=== PATIENT | female | born 1965 | race Caucasian/White ===

== ENCOUNTER 2018-12-11 21:42 | Emergency (ER) | payer SELFPAY ==
[2018-12-11 21:42] VITALS: BP 157/89; PULSE 101; RESP 18; TEMP 36.4; O2SAT 99; BMI 23.1
--- NOTE | 2018-12-11 21:50 | ED_ITS ---
HPI - General Adult General Chief complaint: Neuro Symptoms/Deficit Stated complaint: stroke Time Seen by Provider: 12/11/18 21:48 Source: patient, family and EMS Mode of arrival: EMS Limitations: no limitations History of Present Illness HPI narrative: Patient is a 53-year-old female who arrived by EMS for concerns of possible stroke. Approximately 30 min prior to arrival here in the emergency department was reported by EMS that the patient's last saw her normal. They stated that the reported that she was standing in the kitchen and when the walked into the kitchen she started slurring her words and slumped over on the counter. 911 was called by the patient's . There were no signs of trauma. No interventions prior to arrival. Related Data Home Medications Medication Instructions Recorded Confirmed No Known Home Medications 12/11/18 12/11/18 Allergies Allergy/AdvReac Type Severity Reaction Status Date / Time No Known Drug Allergies Allergy Verified 12/11/18 21:58 Review of Systems Review of Systems These review of systems were provided by patient Constitutional Denies fatigue, Denies headache(s) and Denies weakness Eyes Denies blurry vision, Denies change in vision, Denies diplopia and Denies loss of vision ENT Ears, Nose, Mouth, and Throat: Denies dizziness, Denies headache(s) and Denies disequilibrium Cardiovascular Denies chest pain, Denies palpitations and Denies dyspnea Respiratory Denies dyspnea and Denies other Gastrointestinal Gastrointestinal: Denies abdominal pain, Denies nausea and Denies vomiting Genitourinary Denies dysuria Musculoskeletal Denies back pain, Denies myalgias, Denies arthralgias, Denies muscle weakness, Denies numbness, Denies radiating pain into limb and Denies tingling Integumentary/Breasts Denies lesions and Denies rash Neurologic Denies confusion, Denies dizziness, Denies headache(s), Denies focal weakness, Denies loss of vision, Denies memory loss, Denies numbness, Denies seizure-like activity, Denies sensory deficit, Denies tingling, Denies disequilibrium and Denies weakness Psychiatric Denies confusion and Denies memory loss Endocrine Denies fatigue and Denies palpitations Hematologic/Lymphatic Denies easy bleeding and Denies easy bruising Allergic/Immunologic Denies urticaria PFSH Medical History Healthy adult (Acute) Social History Smoking Status: Never smoker Social History Smoking Status: Never smoker Exam Initial Vital Signs Initial Vital Signs: Vital Signs Temperature 97.6 F 12/11/18 21:42 Pulse Rate 101 H 12/11/18 21:42 Respiratory Rate 18 12/11/18 21:42 Blood Pressure 157/89 H 12/11/18 21:42 Pulse Oximetry 99 12/11/18 21:42 Const General: cooperative, well developed, well groomed, No acute distress and other (Angry appearing) Orientation: alert, awake, oriented x3, oriented to person, oriented to place and oriented to time Limitations: mental status not altered HENMT Head: normal to inspection and normocephalic Nose: external nose normal Face and sinus: normal facial exam Mouth: oral mucosae normal Eyes Pupils: PERRL EOM: EOM intact bilaterally Chest Chest: normal inspection of the chest and No tenderness Resp Effort & Inspection: normal respiratory effort Auscultation: clear to auscultation bilaterally Cardio Rate: tachycardic Rhythm: regular rhythm Pulses: radial pulses present GI Inspection: non-distended Palpation: soft and No firm Skin Lesions: no lesions Rashes: no rashes Neuro General: alert, awake and oriented x3 Cranial Nerves: CN's II-XI intact bilaterally Cognition: normal cognition Speech: speech normal Motor: muscle tone normal throughout Sensory Exam: no sensory deficits noted Coordination: [id number] test normal and [id number] test normal Extrem General: normal to inspection and capillary refill normal Psych Appearance: grossly normal and well kempt Scores GCS [place] coma scale eye opening: Spontaneous [place] coma scale verbal response: Orientated [place] coma scale motor response: Obey commands [place] coma scale total score: 15 NIH Stroke Scale Level of Conciousness: Alert, keenly responsive Ask month/age: Answers both questions correctly. Open/close eyes, close hand: Performs both tasks correctly Best gaze horizontal: Normal Visual henson: No visual loss Facial palsy: Normal symetrical movement Left arm drift: No drift for full 10 sec Right arm drift: No drift for full 10 sec Left leg drift: No drift for full 10 sec Right leg drift: No drift for full 10 sec Limb ataxia: Absent Sensory on face/arms/legs: Normal, no sensory loss Best language: No aphasia, normal Dysarthria: Normal Extinction or inattention: No abnormality Total NIH Stroke scale score: 0 Course Orders Ordered: ED Orders 12/11/18 21:40 Complete Blood Count AUTO DIFF Stat Comprehensive Metabolic Panel Stat Ethanol (ETOH) Stat Partial Thromboplastin Time Stat Prothrombin Time INR Stat Thyroid Stimulating Hormone Stat 12/11/18 21:50 CT head/brain wo con Stat EKG-12 Lead Stat Discontinued Medications Aspirin (Aspirin Ec) 325 mg PO NOW ONE Stop: 12/11/18 22:41 Last Admin: 12/11/18 22:51 Dose: 325 mg Sodium Chloride (Normal Saline 0.9%) 1,000 mls @ 125 mls/hr IV CONT ILANA Last Infusion: 12/11/18 23:20 Dose: 125 mls/hr Admin: 12/11/18 22:00 Dose: 125 mls/hr Vital Signs - 8 hr 12/11/18 21:42 12/11/18 22:00 12/11/18 22:30 Temperature 97.6 F Pulse Rate 101 H 65 69 Respiratory Rate 18 14 15 Blood Pressure 157/89 H Blood Pressure [Left Arm] 143/90 H 133/82 Pulse Oximetry 99 98 96 12/11/18 23:02 Temperature Pulse Rate 75 Respiratory Rate 16 Blood Pressure Blood Pressure [Left Arm] 139/78 Pulse Oximetry 100 Medical Decision Making Lab Data Lab results reviewed: Yes I reviewed the patient's lab results. Result diagrams: 12/11/18 21:40 12/11/18 21:40 Lab Results 12/11/18 12/11/18 12/11/18 Range/Units 21:40 21:40 21:40 WBC 5.4 (4.5-11.0) X10^3/uL RBC 4.83 (4.0-5.2) X10^6/uL Hgb 15.6 (12.0-16.0) g/dL Hct 44.9 (36-46) % MCV 93.0 (80-100) fL MCH 32.4 (26-34) PG MCHC 34.8 (30-36) % RDW 13.5 (11.6-14.8) % Plt Count 298 (150-400) X10^3/uL Neut % (Auto) 44.8 L (50-75) % Lymph % (Auto) 40.4 H (25-40) % [place] % (Auto) 5.2 (3-14) % Eos % (Auto) 8.2 H (2-4) % Baso % (Auto) 1.4 (0-2) % Neut # (Auto) 2400 (0273-0013) /uL Lymph # (Auto) 2200 (7917-0231) /uL [place] # (Auto) 300 (0-900) /uL Eos # (Auto) 400 (0-450) /uL Baso # (Auto) 100 (0-100) /uL PT 10.2 (10.1-12.7) SECONDS INR 0.9 (0.9-1.3) APTT 26 L (26.4-36.2) SECONDS Sodium 140 (137-145) mmol/L Potassium 4.1 (3.4-5.1) mmol/L Chloride 104 (98-107) mmol/L Carbon Dioxide 25 (22-32) mmol/L BUN 10 (7-17) mg/dL Creatinine 0.80 (0.52-1.04) mg/dL Estimated GFR > 60.0 (>60) mL/min BUN/Creatinine Ratio 12.5 (6-22) Glucose 80 (70-100) mg/dL Calcium 9.4 (8.4-10.2) mg/dL Total Bilirubin 0.6 (0.2-1.3) mg/dL AST 66 H (14-36) IU/L ALT 65 H (9-52) IU/L Alkaline Phosphatase 77 (38-126) U/L Total Protein 7.7 (6.3-8.2) g/dL Albumin 4.5 (3.5-5.0) g/dL Globulin 3.2 (1.7-4.1) g/dL Albumin/Globulin Ratio 1.4 (1.0-2.8) TSH (0.47-4.68) uIU/mL Ethyl Alcohol 222 mg/dL 12/11/18 Range/Units 21:40 WBC (4.5-11.0) X10^3/uL RBC (4.0-5.2) X10^6/uL Hgb (12.0-16.0) g/dL Hct (36-46) % MCV (80-100) fL MCH (26-34) PG MCHC (30-36) % RDW (11.6-14.8) % Plt Count (150-400) X10^3/uL Neut % (Auto) (50-75) % Lymph % (Auto) (25-40) % Shelby % (Auto) (3-14) % Eos % (Auto) (2-4) % Baso % (Auto) (0-2) % Neut # (Auto) (0065-0555) /uL Lymph # (Auto) (1730-7849) /uL [place] # (Auto) (0-900) /uL Eos # (Auto) (0-450) /uL Baso # (Auto) (0-100) /uL PT (10.1-12.7) SECONDS INR (0.9-1.3) APTT (26.4-36.2) SECONDS Sodium (137-145) mmol/L Potassium (3.4-5.1) mmol/L Chloride (98-107) mmol/L Carbon Dioxide (22-32) mmol/L BUN (7-17) mg/dL Creatinine (0.52-1.04) mg/dL Estimated GFR (>60) mL/min BUN/Creatinine Ratio (6-22) Glucose (70-100) mg/dL Calcium (8.4-10.2) mg/dL Total Bilirubin (0.2-1.3) mg/dL AST (14-36) IU/L ALT (9-52) IU/L Alkaline Phosphatase (38-126) U/L Total Protein (6.3-8.2) g/dL Albumin (3.5-5.0) g/dL Globulin (1.7-4.1) g/dL Albumin/Globulin Ratio (1.0-2.8) TSH 2.14 (0.47-4.68) uIU/mL Ethyl Alcohol mg/dL Imaging Data CT scan - head: Radiologist's impression: Negative for acute intracranial abnormality. Sinusitis ECG Data Attestation: I personally reviewed and interpreted this ECG as follows: Prior ECG tracings: not available for review Interpretation: Sinus rhythm Ventricular rate 82 Normal axis Normal QRS Normal QTC No ST T wave changes MDM Narrative Medical decision making narrative: Upon arrival patient seemed to be somewhat agitated about what was going on. I asked her if she felt agitated and she stated that she was agitated because she was here in the emergency department. She had no slurring of her words. Shortly after she arrived here while I was doing my neurologic evaluation the patient's arrived. He stated that he felt like she was back to normal again. Was not slurring any of her words. Her head CT was unremarkable. Her labs did come back showing a elevated alcohol level. I have a strong suspicion that the patient's symptoms were alcohol related and not stroke related however there is a small concerned about a TIA. She was given an aspirin here in the emergency department. The patient did not want to be admitted to the hospital. She did not have insurance. I discussed the case with Dr. Machado who is her primary doctor who stated that he could follow up with her on Friday. I did discuss all this with the patient and her family who are at bedside. We discussed return precautions. She is going to take an aspirin on a daily basis until follow-up with her primary doctor. Patient expressed understanding and agreement with this plan. Discharge Plan Departure Patient Disposition: Home Clinical Impression: TIA (transient ischemic attack) Alcohol intoxication Qualifiers: Complication of substance-induced condition: with unspecified complication Qualified Code(s): F10.929 - Alcohol use, unspecified with intoxication, unspecified Discharge Date/Time: 12/11/18 23:10 Interventions: ED Discharge Assessment Last Done: 12/11/18 23:10 Instructions: DI for Transient Ischemic Attack Activity Restrictions/Additional Instructions: I recommend you start taking a full 325 mg strength aspirin. On Friday morning give your primary care doctor's office a call. No driving for the next 24 hr or in the future you partake in intoxicating substances. Return to the emergency department for any new or worsening symptoms Prescriptions: No Action No Known Home Medications RF: 0
--- NOTE | 2018-12-11 21:50 | DI.CT.S_ITS ---
PROCEDURE: CT HEAD/BRAIN WO CON INDICATIONS: Possible stroke TECHNIQUE: Noncontrast 4.5 mm thick angled axial sections acquired from the foramen magnum to the vertex, with coronal and sagittal reformats. For radiation dose reduction, the following was used: automated exposure control, adjustment of mA and/or kV according to patient size. COMPARISON: None. FINDINGS: Image quality: Excellent. CSF spaces: Basal cisterns are patent. No extra-axial fluid collections. Ventricles are normal in size and shape. Brain: No midline shift. No intracranial masses or hemorrhage. Negron-white matter interface is normal. Skull and face: Calvarium and visualized facial bones are intact, without suspicious lesions. Sinuses: Marked mucosal thickening and gas is present within the bilateral ethmoid air cells. Visualized sinuses and mastoids are otherwise clear. IMPRESSION: 1. No acute intracranial findings. 2. Ethmoid sinusitis. These findings are concordant with the overnight interpretation. Dictated by: Juani Dick M.D. on 12/12/2018 at 8:10 Approved by: Juani Dick M.D. on 12/12/2018 at 8:11
[2018-12-11 21:55] LABS: Add Manual Diff / Slide Review NO; Basophils Absolute Auto 100 /uL (0-100); Basophils Percent Auto 1.4 % (0-2); Eosinophils Absolute Auto 400 /uL (0-450); Eosinophils Percent Auto 8.2 % (2-4); Hematocrit 44.9 % (36-46); Hemoglobin 15.6 g/dL (12.0-16.0); Lymphocytes Absolute Auto 2200 /uL (1100-4500); Lymphocytes Percent Auto 40.4 % (25-40); Mean Corpuscular HGB Conc 34.8 % (30-36); Mean Corpuscular Hemoglobin 32.4 PG (26-34); Monocytes Absolute Auto 300 /uL (0-900); Monocytes Percent Auto 5.2 % (3-14); Neutrophils Absolute Auto 2400 /uL (1500-7000); Neutrophils Percent Auto 44.8 % (50-75); Platelet Count 298 X10^3/uL (150-400); Red Blood Cell Count 4.83 X10^6/uL (4.0-5.2); Red Cell Distribution Width 13.5 % (11.6-14.8); White Blood Cell Count 5.4 X10^3/uL (4.5-11.0)
[2018-12-11 21:59] LABS: INR 0.9 (0.9-1.3); Prothrombin Time 10.2 SECONDS (10.1-12.7)
[2018-12-11 22:00] VITALS: BP 143/90; PULSE 65; RESP 14; O2SAT 98
[2018-12-11] MEDS: SODIUM CHLORIDE 0.9% 1,000 ML 125 ML IV (22:00)
[2018-12-11 22:01] LABS: PTT Partial Thromboplastin Tim 26 SECONDS (26.4-36.2)
[2018-12-11 22:07] LABS: Alanine Aminotransferase 65 IU/L (9-52); Albumin 4.5 g/dL (3.5-5.0); Albumin Globulin Ratio 1.4 (1.0-2.8); Alkaline Phosphatase 77 U/L (38-126); Aspartate Aminotransferase 66 IU/L (14-36); BUN Creatinine Ratio 12.5 (6-22); Bilirubin Total 0.6 mg/dL (0.2-1.3); Blood Urea Nitrogen 10 mg/dL (7-17); Calcium 9.4 mg/dL (8.4-10.2); Carbon Dioxide 25 mmol/L (22-32); Chloride 104 mmol/L (98-107); Estimated Glomerular Filt Rate > 60.0 mL/min (>60); Globulin 3.2 g/dL (1.7-4.1); Glucose 80 mg/dL (70-100); HEMOLYSIS < 15 (0-50); Potassium 4.1 mmol/L (3.4-5.1); Sodium 140 mmol/L (137-145); Total Protein 7.7 g/dL (6.3-8.2)
--- NOTE | 2018-12-11 22:20 | PC.NURSE ---
provided O2 by NC on 2L due to o2 sat to 89-90% in RA while in supine position. O2 sat upto 98% in RA
[2018-12-11 22:30] VITALS: BP 133/82; PULSE 69; RESP 15; O2SAT 96
[2018-12-11 22:32] LABS: Ethanol (ETOH) 222 mg/dL
[2018-12-11 22:46] LABS: Thyroid Stimulating Hormone 2.14 uIU/mL (0.47-4.68)
[2018-12-11] MEDS: ASPIRIN EC 325 MG TABLET PO (22:51)
[2018-12-11 23:02] VITALS: BP 139/78; PULSE 75; RESP 16; O2SAT 100
== END 2018-12-11 23:10 | disposition home or self-care (01) ==
PROVIDERS: Emergency Provider Emergency Medicine
DX: G45.9 Transient cerebral ischemic attack, unspecified (principal); F10.929 Alcohol use, unspecified with intoxication, unspecified
CPT/HCPCS: 36415; 70450; 80053; 80320; 84443; 85025; 85610; 85730; 93005; 93010; 96360; 99283; 99285; 99291

== ENCOUNTER → 2020-06-16 11:02 | Outpatient (CLI) | payer SELFPAY ==
--- NOTE | 2020-06-16 | DI.CT.S_ITS ---
PROCEDURE: CT ABDOMEN PELVIS W CON INDICATIONS: Unspecified abdominal pain TECHNIQUE: After the administration of oral and intravenous contrast, 5 mm thick sections acquired from the diaphragms to the symphysis. 5 mm thick coronal and sagittal reformats were performed. For radiation dose reduction, the following was used: automated exposure control, adjustment of mA and/or kV according to patient size. COMPARISON: None. FINDINGS: Image quality: Excellent. ABDOMEN: Lung bases: Lung bases are clear. Heart size is normal. Nonenlarged pericardiac lymph nodes. Solid organs: Liver is normal in size. Multiple hypodense hepatic foci. Gallbladder is unremarkabl. Biliary system is non-dilated. Pancreas enhances normally. Spleen is normal in size and enhancement. No adrenal nodules. Kidneys are normal in size and enhancement, without significant hydronephrosis. Peritoneum and bowel: No bowel obstruction. Loops of small bowel in the left upper abdomen are questionably thickened. Appendix is within normal limits with gas in the lumen. No pneumoperitoneum. Nodes and vessels: No retroperitoneal or mesenteric adenopathy. Subtle stranding in the peritoneum in the left upper quadrant, (3/16). No peritoneal nodularity identified. Aorta and inferior vena cava are normal in caliber. Miscellaneous: Tiny periumbilical fat containing hernia. PELVIS: Genitourinary: Bladder is mostly decompressed. Uterus has in the lung gated appearance extending to the anterior abdominal wall. Suspect multiple uterine fibroids. Uterus is deviated to the left. Trace presacral fluid. -Massive right ovarian cyst measuring 21.2 x 14.5 x 10.3 cm, (02/03 and ), estimated volume of 1646 cc. Solid component at the inferior portion. -complex left ovarian cyst measuring approximately 10 x 7.2 x 6.6 cm, ( and ). Multiple septations with nodular thickening and calcifications. Miscellaneous: No inguinal hernias. No enlarged adenopathy. Bones: No suspicious bony lesions. No vertebral body compression fractures. IMPRESSION: 1. Massive solid and cystic right ovarian cyst measuring 21.2 cm. Suspicious for ovarian malignancy. 2. Large left ovarian complex cyst measuring 10 cm. Suspicious for ovarian malignancy. 3. Trace presacral fluid. Subtle stranding in the peritoneum in the left upper quadrant. No ascites. 4. Question of mild thickening of the jejunal wall in the left upper quadrant. 5. Elongated appearance of the uterus with multiple fibroids. Gynecological/surgical consultation is recommended. Dictated by: López Mckenzie M.D. on 06/16/2020 at 12:29 Approved by: López Mckenzie M.D. on 06/16/2020 at 12:56
--- NOTE | 2020-10-23 09:35 | ONC.SCHED ---
Patient being referred to Oncology; left voicemail for patient to provide insurance information.
--- NOTE | 2020-10-23 09:40 | ONC.SCHED ---
Left message at referring provider's office (Dr. Deepak Luevano, [facility] [phone]) advising patient has new insurance and will need an authorization to be seen at [facility]
== END ==
PROVIDERS: PCP Family Medicine; Referring Provider Family Medicine; Visit Provider Family Medicine
DX: R10.9 Unspecified abdominal pain (principal); N83.292 Other ovarian cyst, left side; N83.291 Other ovarian cyst, right side; D25.9 Leiomyoma of uterus, unspecified
CPT/HCPCS: 74177; Q9967

== ENCOUNTER → 2020-11-10 10:35 | Outpatient (CLI) | payer OTHER, SELFPAY ==
--- NOTE | 2020-11-10 10:39 | DI.CT.S_ITS ---
PROCEDURE: CT CHEST ABD PEL W CON INDICATIONS: Follow-up ovarian cancer postop TECHNIQUE: After the administration of oral and intravenous contrast, 5 mm thick sections acquired from the lung apices to the symphysis. 5 mm coronal and sagittal reformats were performed, with additional 7 mm coronal MIP reformats through the lungs. For radiation dose reduction, the following was used: automated exposure control, adjustment of mA and/or kV according to patient size. COMPARISON: [facility], CT, CT ABDOMEN PELVIS W CON, 06/16/2020, 12:07. FINDINGS: Image quality: Excellent. CHEST: Lungs and pleura: No acute airspace opacities. Scattered dependent atelectasis in periphery of bilateral lower lung henson are seen. No pleural effusions or pneumothorax. Central and peripheral airways appear patent and normal in caliber. Mediastinum: Heart size is normal. No pericardial effusion. No mediastinal or hilar adenopathy by size criteria. Thoracic aorta and central pulmonary arteries are normal in size. Esophagus is normal in caliber. No hiatal hernia. Chest wall: No axillary or supraclavicular adenopathy by size criteria. Thyroid gland is within normal limits. ABDOMEN: Solid organs: Liver is normal in size . Numerous small hypodense foci are again seen scattered in liver parenchyma and measures up to 1.5 cm in size in right hepatic dome, not significantly changed in size and numbers from previous study. There is and ill-defined hypodense area involving posterior segment of right hepatic lobe measures up to 1.4 x 1.2 cm in size series 2, image 55 . This was not definitively seen on previous study Tiny hypodense area involving lateral segment of left hepatic lobe measures 4 millimeter in size is unchanged. Gallbladder is within normal limits. Biliary system is non dilated. Pancreas enhances normally. Spleen is normal in size and enhancement. No adrenal nodules. Kidneys demonstrate normal size and enhancement, without hydronephrosis. Peritoneum and bowel: Bowel loops demonstrate normal wall thickness and caliber. No free fluid or air. Appendix is visualized and is within normal limits. Nodes and vessels: Enlarged retroperitoneal lymph node anterior to the IVC is seen measures 1.2 cm in short axis diameter series 2, image 83. Enlarged lymph nodes are also noted along left iliac vessels measures up to 1.4 x 2.8 cm in size series 2 image 101. No other retroperitoneal lymphadenopathy is noted by size criteria. No mesenteric lymphadenopathy is seen by size criteria. Aorta and inferior vena cava are normal in size. Miscellaneous: No ventral hernias. Postsurgical changes are noted in anterior lower abdominal wall/pelvic wall. PELVIS: Genitourinary: There is interval total hysterectomy and resection of previously noted bilateral adnexal cystic masses. Vaginal cuff region show no gross abnormality. Bladder wall thickness is mildly thickened without discrete bladder wall mass Miscellaneous: No inguinal hernias or adenopathy. Bones: No suspicious bony lesions. No vertebral body compression fractures. IMPRESSION: 1. Interval total hysterectomy and resection of previously noted large cystic mass in bilateral adnexa. No gross abnormality is seen in vaginal cuff region. 2. Prominent retroperitoneal lymph node anterior to IVC. Additional enlarged left iliac nodes as above concerning for metastatic lymphadenopathy. No mediastinal or hilar lymphadenopathy. 3. Stable appearing fairly well-defined small hypodense lesions seen in liver parenchyma predominantly involving the right hepatic lobe and likely represent benign process. Questionable ill-defined 1.4 x 1.2 cm hypodensity involving posterior segment of right hepatic lobe not definitely seen on previous study, liver metastatic disease cannot be excluded. Short-term [address] follow-up is recommended. 4. No evidence of metastatic disease to lungs. Dictated by: Agustín Kolb M.D. on 11/10/2020 at 13:16 Approved by: Agustín Klob M.D. on 11/10/2020 at 13:49
== END ==
PROVIDERS: PCP Family Medicine; Referring Provider Internal Medicine; Visit Provider Internal Medicine
DX: C56.1 Malignant neoplasm of right ovary (principal); R59.0 Localized enlarged lymph nodes; K76.9 Liver disease, unspecified; Z90.710 Acquired absence of both cervix and uterus
CPT/HCPCS: 71260; 74177

== ENCOUNTER → 2020-11-28 11:58 | Outpatient (ROUT) | payer OTHER, SELFPAY ==
[2020-11-28 12:09] LABS: Hematocrit 38.6 % (36-46); Hemoglobin 13.2 g/dL (12.0-16.0); Mean Corpuscular HGB Conc 34.2 % (30-36); Mean Corpuscular Hemoglobin 30.6 PG (26-34); Mean Corpuscular Volume 89.4 fL (80-100); Platelet Count 195 X10^3/uL (150-400); Red Blood Cell Count 4.32 X10^6/uL (4.0-5.2); Red Cell Distribution Width 12.4 % (11.6-14.8)
[2020-11-28 12:11] LABS: Add Manual Diff / Slide Review YES; White Blood Cell Count 1.8 X10^3/uL (4.5-11.0)
[2020-11-28 12:39] LABS: Neutrophils Absolute Manual 468 /uL (3000-5900); Total Cells Counted 50
[2020-11-28 12:41] LABS: RBC Morphology Normal Morphology
== END ==
PROVIDERS: PCP Family Medicine; Visit Provider Internal Medicine
DX: C56.1 Malignant neoplasm of right ovary (principal)
CPT/HCPCS: 85007; 85025

== ENCOUNTER → 2020-12-20 12:25 | Outpatient (ROUT) | payer OTHER, SELFPAY ==
[2020-12-20 12:32] LABS: Add Manual Diff / Slide Review NO; Basophils Absolute Auto 0 /uL (0-100); Basophils Percent Auto 0.2 % (0-2); Eosinophils Absolute Auto 0 /uL (0-450); Eosinophils Percent Auto 0.7 % (2-4); Hematocrit 32.8 % (36-46); Hemoglobin 11.4 g/dL (12.0-16.0); Lymphocytes Absolute Auto 1100 /uL (1100-4500); Lymphocytes Percent Auto 18.4 % (25-40); Mean Corpuscular HGB Conc 34.7 % (30-36); Mean Corpuscular Hemoglobin 31.2 PG (26-34); Mean Corpuscular Volume 89.9 fL (80-100); Monocytes Absolute Auto 400 /uL (0-900); Monocytes Percent Auto 7.4 % (3-14); Neutrophils Absolute Auto 4400 /uL (1500-7000); Neutrophils Percent Auto 73.3 % (50-75); Platelet Count 205 X10^3/uL (150-400); Red Blood Cell Count 3.64 X10^6/uL (4.0-5.2); Red Cell Distribution Width 13.2 % (11.6-14.8)
== END ==
PROVIDERS: PCP Family Medicine; Visit Provider Internal Medicine
DX: C56.1 Malignant neoplasm of right ovary (principal)
CPT/HCPCS: 85025

== ENCOUNTER → 2021-01-02 12:29 | Outpatient (ROUT) | payer OTHER, SELFPAY ==
[2021-01-02 12:37] LABS: Add Manual Diff / Slide Review NO; Basophils Absolute Auto 0 /uL (0-100); Basophils Percent Auto 0.4 % (0-2); Eosinophils Absolute Auto 0 /uL (0-450); Eosinophils Percent Auto 0.6 % (2-4); Hematocrit 34.5 % (36-46); Hemoglobin 12.2 g/dL (12.0-16.0); Lymphocytes Absolute Auto 1100 /uL (1100-4500); Lymphocytes Percent Auto 12.9 % (25-40); Mean Corpuscular HGB Conc 35.2 % (30-36); Mean Corpuscular Hemoglobin 32.2 PG (26-34); Mean Corpuscular Volume 91.4 fL (80-100); Monocytes Absolute Auto 800 /uL (0-900); Monocytes Percent Auto 8.9 % (3-14); Neutrophils Absolute Auto 6700 /uL (1500-7000); Neutrophils Percent Auto 77.2 % (50-75); Platelet Count 227 X10^3/uL (150-400); Red Blood Cell Count 3.78 X10^6/uL (4.0-5.2); Red Cell Distribution Width 16.1 % (11.6-14.8); White Blood Cell Count 8.7 X10^3/uL (4.5-11.0)
[2021-01-02 12:44] LABS: Alanine Aminotransferase 98 IU/L (<35); Albumin 4.3 g/dL (3.5-5.0); Albumin Globulin Ratio 1.8 (1.0-2.8); Alkaline Phosphatase 126 U/L (38-126); Aspartate Aminotransferase 59 IU/L (14-36); BUN Creatinine Ratio 26.1 (6-22); Bilirubin Total 0.6 mg/dL (0.2-1.3); Blood Urea Nitrogen 12 mg/dL (7-17); Carbon Dioxide 29 mmol/L (22-32); Chloride 98 mmol/L (98-107); Estimated Glomerular Filt Rate > 60.0 mL/min (>60); Globulin 2.4 g/dL (1.7-4.1); Glucose 92 mg/dL (70-100); HEMOLYSIS < 15 (0-50); Potassium 3.6 mmol/L (3.4-5.1); Sodium 135 mmol/L (137-145); Total Protein 6.7 g/dL (6.3-8.2)
== END ==
PROVIDERS: PCP Family Medicine; Visit Provider Internal Medicine
DX: C56.1 Malignant neoplasm of right ovary (principal)
CPT/HCPCS: 80053; 85025

== ENCOUNTER → 2021-01-09 11:35 | Outpatient (ROUT) | payer OTHER, SELFPAY ==
[2021-01-09 11:50] LABS: Add Manual Diff / Slide Review NO; Basophils Absolute Auto 0 /uL (0-100); Basophils Percent Auto 0.2 % (0-2); Eosinophils Absolute Auto 100 /uL (0-450); Eosinophils Percent Auto 1.1 % (2-4); Hematocrit 34.5 % (36-46); Hemoglobin 11.8 g/dL (12.0-16.0); Lymphocytes Absolute Auto 1200 /uL (1100-4500); Lymphocytes Percent Auto 14.2 % (25-40); Mean Corpuscular HGB Conc 34.3 % (30-36); Mean Corpuscular Hemoglobin 31.9 PG (26-34); Mean Corpuscular Volume 92.9 fL (80-100); Monocytes Absolute Auto 400 /uL (0-900); Neutrophils Absolute Auto 6500 /uL (1500-7000); Neutrophils Percent Auto 79.5 % (50-75); Platelet Count 171 X10^3/uL (150-400); Red Blood Cell Count 3.71 X10^6/uL (4.0-5.2); Red Cell Distribution Width 17.2 % (11.6-14.8); White Blood Cell Count 8.1 X10^3/uL (4.5-11.0)
== END ==
PROVIDERS: PCP Family Medicine; Visit Provider Internal Medicine
DX: C56.1 Malignant neoplasm of right ovary (principal)
CPT/HCPCS: 85025

== ENCOUNTER → 2021-01-23 13:27 | Outpatient (ROUT) | payer OTHER, SELFPAY ==
[2021-01-23 13:41] LABS: Add Manual Diff / Slide Review NO; Basophils Absolute Auto 0 /uL (0-100); Basophils Percent Auto 0.1 % (0-2); Eosinophils Absolute Auto 100 /uL (0-450); Eosinophils Percent Auto 1.2 % (2-4); Hematocrit 30.1 % (36-46); Hemoglobin 10.8 g/dL (12.0-16.0); Lymphocytes Absolute Auto 800 /uL (1100-4500); Lymphocytes Percent Auto 10.2 % (25-40); Mean Corpuscular HGB Conc 35.7 % (30-36); Mean Corpuscular Hemoglobin 34.8 PG (26-34); Mean Corpuscular Volume 97.5 fL (80-100); Monocytes Absolute Auto 500 /uL (0-900); Monocytes Percent Auto 5.7 % (3-14); Neutrophils Absolute Auto 6600 /uL (1500-7000); Neutrophils Percent Auto 82.8 % (50-75); Platelet Count 58 X10^3/uL (150-400); Red Blood Cell Count 3.09 X10^6/uL (4.0-5.2); Red Cell Distribution Width 19.1 % (11.6-14.8); White Blood Cell Count 7.9 X10^3/uL (4.5-11.0)
[2021-01-23 13:44] LABS: Alanine Aminotransferase 81 IU/L (<35); Albumin Globulin Ratio 1.7 (1.0-2.8); Alkaline Phosphatase 120 U/L (38-126); Aspartate Aminotransferase 61 IU/L (14-36); BUN Creatinine Ratio 31.3 (6-22); Bilirubin Total 0.8 mg/dL (0.2-1.3); Blood Urea Nitrogen 15 mg/dL (7-17); Calcium 9.5 mg/dL (8.4-10.2); Carbon Dioxide 27 mmol/L (22-32); Chloride 102 mmol/L (98-107); Estimated Glomerular Filt Rate > 60.0 mL/min (>60); Globulin 2.4 g/dL (1.7-4.1); Glucose 96 mg/dL (70-100); HEMOLYSIS < 15 (0-50); Potassium 3.8 mmol/L (3.4-5.1); Sodium 137 mmol/L (137-145); Total Protein 6.4 g/dL (6.3-8.2)
== END ==
PROVIDERS: PCP Family Medicine; Visit Provider Internal Medicine
DX: C56.1 Malignant neoplasm of right ovary (principal)
CPT/HCPCS: 80053; 85025

== ENCOUNTER → 2021-01-30 14:32 | Outpatient (ROUT) | payer OTHER, SELFPAY ==
[2021-01-30 14:42] LABS: Add Manual Diff / Slide Review NO; Basophils Absolute Auto 0 /uL (0-100); Basophils Percent Auto 0.2 % (0-2); Eosinophils Absolute Auto 100 /uL (0-450); Eosinophils Percent Auto 1.8 % (2-4); Hemoglobin 9.8 g/dL (12.0-16.0); Lymphocytes Absolute Auto 700 /uL (1100-4500); Lymphocytes Percent Auto 18.7 % (25-40); Mean Corpuscular HGB Conc 34.9 % (30-36); Mean Corpuscular Hemoglobin 34.9 PG (26-34); Monocytes Absolute Auto 200 /uL (0-900); Monocytes Percent Auto 4.7 % (3-14); Neutrophils Absolute Auto 2600 /uL (1500-7000); Neutrophils Percent Auto 74.6 % (50-75); Platelet Count 68 X10^3/uL (150-400); Red Cell Distribution Width 19.2 % (11.6-14.8); White Blood Cell Count 3.5 X10^3/uL (4.5-11.0)
== END ==
PROVIDERS: PCP Family Medicine; Visit Provider Internal Medicine
DX: C56.1 Malignant neoplasm of right ovary (principal)
CPT/HCPCS: 85025

== ENCOUNTER → 2021-02-13 12:27 | Outpatient (ROUT) | payer OTHER, SELFPAY ==
[2021-02-13 12:38] LABS: Add Manual Diff / Slide Review NO; Basophils Absolute Auto 0 /uL (0-100); Basophils Percent Auto 0.3 % (0-2); Eosinophils Absolute Auto 100 /uL (0-450); Eosinophils Percent Auto 1.2 % (2-4); Hematocrit 25.9 % (36-46); Hemoglobin 9.3 g/dL (12.0-16.0); Lymphocytes Absolute Auto 700 /uL (1100-4500); Lymphocytes Percent Auto 15.2 % (25-40); Mean Corpuscular Hemoglobin 37.3 PG (26-34); Mean Corpuscular Volume 103.4 fL (80-100); Monocytes Absolute Auto 400 /uL (0-900); Monocytes Percent Auto 9.2 % (3-14); Neutrophils Absolute Auto 3300 /uL (1500-7000); Neutrophils Percent Auto 74.1 % (50-75); Platelet Count 106 X10^3/uL (150-400); Red Cell Distribution Width 18.5 % (11.6-14.8); White Blood Cell Count 4.4 X10^3/uL (4.5-11.0)
[2021-02-13 13:25] LABS: Alanine Aminotransferase 65 IU/L (<35); Albumin 3.9 g/dL (3.5-5.0); Albumin Globulin Ratio 1.6 (1.0-2.8); Alkaline Phosphatase 90 U/L (38-126); Aspartate Aminotransferase 42 IU/L (14-36); BUN Creatinine Ratio 26.1 (6-22); Bilirubin Total 0.5 mg/dL (0.2-1.3); Blood Urea Nitrogen 12 mg/dL (7-17); Calcium 9.5 mg/dL (8.4-10.2); Carbon Dioxide 28 mmol/L (22-32); Chloride 99 mmol/L (98-107); Estimated Glomerular Filt Rate > 60.0 mL/min (>60); Globulin 2.5 g/dL (1.7-4.1); Glucose 112 mg/dL (70-100); HEMOLYSIS < 15 (0-50); Potassium 3.6 mmol/L (3.4-5.1); Sodium 134 mmol/L (137-145); Total Protein 6.4 g/dL (6.3-8.2)
== END ==
PROVIDERS: PCP Family Medicine; Visit Provider Internal Medicine
DX: C56.1 Malignant neoplasm of right ovary (principal)
CPT/HCPCS: 80053; 85025

== ENCOUNTER → 2021-02-20 12:17 | Outpatient (ROUT) | payer OTHER, SELFPAY ==
[2021-02-20 12:27] LABS: Add Manual Diff / Slide Review NO; Basophils Absolute Auto 0 /uL (0-100); Basophils Percent Auto 0.3 % (0-2); Eosinophils Absolute Auto 100 /uL (0-450); Eosinophils Percent Auto 0.9 % (2-4); Hemoglobin 9.3 g/dL (12.0-16.0); Lymphocytes Absolute Auto 1000 /uL (1100-4500); Lymphocytes Percent Auto 17.5 % (25-40); Mean Corpuscular HGB Conc 35.8 % (30-36); Mean Corpuscular Hemoglobin 37.4 PG (26-34); Mean Corpuscular Volume 104.6 fL (80-100); Monocytes Absolute Auto 500 /uL (0-900); Monocytes Percent Auto 8.3 % (3-14); Neutrophils Absolute Auto 4100 /uL (1500-7000); Platelet Count 156 X10^3/uL (150-400); Red Blood Cell Count 2.49 X10^6/uL (4.0-5.2); Red Cell Distribution Width 19.1 % (11.6-14.8); White Blood Cell Count 5.6 X10^3/uL (4.5-11.0)
== END ==
PROVIDERS: PCP Family Medicine; Visit Provider Internal Medicine
DX: C56.1 Malignant neoplasm of right ovary (principal)
CPT/HCPCS: 85025

== ENCOUNTER → 2021-03-06 12:40 | Outpatient (ROUT) | payer OTHER, SELFPAY ==
[2021-03-06 12:50] LABS: Add Manual Diff / Slide Review YES; Hematocrit 26.7 % (36-46); Hemoglobin 9.4 g/dL (12.0-16.0); Mean Corpuscular HGB Conc 35.2 % (30-36); Mean Corpuscular Hemoglobin 37.5 PG (26-34); Mean Corpuscular Volume 106.5 fL (80-100); Platelet Count 63 X10^3/uL (150-400); White Blood Cell Count 7.1 X10^3/uL (4.5-11.0)
[2021-03-06 13:01] LABS: Alanine Aminotransferase 62 IU/L (<35); Albumin 3.8 g/dL (3.5-5.0); Albumin Globulin Ratio 1.6 (1.0-2.8); Alkaline Phosphatase 137 U/L (38-126); Aspartate Aminotransferase 56 IU/L (14-36); Bilirubin Total 0.5 mg/dL (0.2-1.3); Blood Urea Nitrogen 14 mg/dL (7-17); Calcium 9.3 mg/dL (8.4-10.2); Carbon Dioxide 31 mmol/L (22-32); Chloride 101 mmol/L (98-107); Estimated Glomerular Filt Rate > 60.0 mL/min (>60); Globulin 2.4 g/dL (1.7-4.1); Glucose 88 mg/dL (70-100); HEMOLYSIS 16 (0-50); Sodium 137 mmol/L (137-145); Total Protein 6.2 g/dL (6.3-8.2)
[2021-03-06 13:05] LABS: Macrocytosis 1+; Neutrophils Absolute Manual 5751 /uL (3000-5900); Total Cells Counted 100
== END ==
PROVIDERS: PCP Family Medicine; Visit Provider Internal Medicine
DX: C56.1 Malignant neoplasm of right ovary (principal)
CPT/HCPCS: 80053; 85007; 85025

== ENCOUNTER → 2021-03-13 11:48 | Outpatient (ROUT) | payer OTHER, SELFPAY ==
[2021-03-13 11:53] LABS: Add Manual Diff / Slide Review NO; Basophils Absolute Auto 0 /uL (0-100); Basophils Percent Auto 0.4 % (0-2); Eosinophils Absolute Auto 100 /uL (0-450); Eosinophils Percent Auto 1.9 % (2-4); Hematocrit 27.9 % (36-46); Hemoglobin 9.8 g/dL (12.0-16.0); Lymphocytes Absolute Auto 800 /uL (1100-4500); Lymphocytes Percent Auto 21.5 % (25-40); Mean Corpuscular Hemoglobin 37.2 PG (26-34); Mean Corpuscular Volume 106.5 fL (80-100); Monocytes Absolute Auto 200 /uL (0-900); Monocytes Percent Auto 6.5 % (3-14); Neutrophils Absolute Auto 2500 /uL (1500-7000); Neutrophils Percent Auto 69.7 % (50-75); Platelet Count 74 X10^3/uL (150-400); Red Blood Cell Count 2.62 X10^6/uL (4.0-5.2); Red Cell Distribution Width 15.1 % (11.6-14.8); White Blood Cell Count 3.6 X10^3/uL (4.5-11.0)
== END ==
PROVIDERS: PCP Family Medicine; Visit Provider Internal Medicine
DX: C56.1 Malignant neoplasm of right ovary (principal)
CPT/HCPCS: 85025

== ENCOUNTER → 2021-03-22 11:02 | Outpatient (CLI) | payer OTHER, SELFPAY ==
--- NOTE | 2021-03-22 11:36 | DI.CT.S_ITS ---
PROCEDURE: CT CHEST ABD PEL W CON INDICATIONS: Follow-up ovarian cancer after chemotherapy TECHNIQUE: After the administration of oral and intravenous contrast, axial sections acquired from the supraclavicular neck to the pubic symphysis. Coronal and sagittal reformats were performed. For radiation dose reduction, the following was used: automated exposure control, adjustment of mA and/or kV according to patient size. COMPARISON:[facility], CT, CT ABDOMEN PELVIS W CON, 06/16/2020, 12:07. [facility], CT, CT CHEST ABD PEL W CON, 11/10/2020, 11:55. FINDINGS: Image quality: Excellent. CHEST: Lower Neck: No enlarged lymph nodes. Thyroid: Within normal limits. Axillae: No enlarged lymph nodes. Chest Wall: Unremarkable. Lungs and Airways: No consolidation or suspicious nodules. Pleura: No pneumothorax or pleural effusions. Heart: Heart size is normal. No pericardial effusion. Thoracic Vessels: The aorta and pulmonary arteries demonstrate normal size. Mediastinum and [place]: No enlarged lymph nodes. Esophagus: No wall thickening. No hiatal hernia. ABDOMEN: Liver: Numerous small hypodense foci scattered throughout the liver. The hypodense focus in the posterior right lobe of the liver is unchanged in size compared to CT 11/10/2020 and appears more hypodense similar to the other suspected benign cyst. This measures 1.3 cm, (2/54). Gallbladder: Unremarkable. Biliary ducts: Unremarkable. Pancreas: Unremarkable. Spleen: Unremarkable. Adrenal Glands: Unremarkable. Kidneys and Ureters: Unremarkable. Stomach and Bowel: Stomach, small bowel loops, and colon are unremarkable. Normal appendix. Peritoneum: No abnormal intraperitoneal fluid. No free air. Ventral Wall: No hernia. Ventral abdominal wall scar. Abdominal Nodes: -Precaval node measuring 1.6 x 0.9 cm, (2/83), previously 2 x 1.4 cm. -Left iliac node measuring 1.8 x 1.2 cm, (2/101), previously 2.8 x 1.6 cm. -Left iliac node measuring 1.5 cm, (2/99), previously 1.2 cm. Small right iliac nodes. Vessels: Aorta and inferior vena cava are normal in size. PELVIS: Pelvic Organs: Uterus is absent. Bladder: Unremarkable. Pelvic Nodes: Right pelvic nodule measuring 2.5 x 1.6 cm, (2/106), previously 2.3 x 1.5 cm. Miscellaneous: No inguinal hernias are seen. Bones: Unremarkable. IMPRESSION: 1. Bilateral iliac and right pelvic nodes are stable to slightly decreased in size. No new nodes seen. 2. Hypodense foci in the liver are unchanged in size. Favor benign cysts rather than metastatic disease. -consider liver MRI with IV contrast for further characterization to exclude metastatic liver disease. 3. Post hysterectomy and ovarian mass resection. Dictated by: López Mckenzie M.D. on 03/22/2021 at 13:04 Approved by: López Mckenzie M.D. on 03/22/2021 at 13:22
== END ==
PROVIDERS: PCP Family Medicine; Referring Provider Internal Medicine; Visit Provider Internal Medicine
DX: C56.1 Malignant neoplasm of right ovary (principal); R59.0 Localized enlarged lymph nodes; Z90.710 Acquired absence of both cervix and uterus
CPT/HCPCS: 71260; 74177

== ENCOUNTER → 2021-06-28 15:48 | Outpatient (ROUT) | payer OTHER, SELFPAY ==
[2021-06-28 16:29] LABS: Cancer Antigen 125 37.3 U/mL (0-35)
== END ==
PROVIDERS: PCP Family Medicine; Visit Provider Internal Medicine
DX: C56.1 Malignant neoplasm of right ovary (principal); M54.9 Dorsalgia, unspecified
CPT/HCPCS: 86304

== ENCOUNTER → 2021-07-02 11:00 | Outpatient (CLI) | payer OTHER, SELFPAY ==
--- NOTE | 2021-07-02 | DI.CT.S_ITS ---
PROCEDURE: CT CHEST ABD PEL W CON INDICATIONS: Malignant neoplasm of unspecified ovary TECHNIQUE: After the administration of oral and intravenous contrast, axial sections acquired from the supraclavicular neck to the pubic symphysis. Coronal and sagittal reformats were performed. For radiation dose reduction, the following was used: automated exposure control, adjustment of mA and/or kV according to patient size. COMPARISON:[facility], CT, CT CHEST ABD PEL W CON, 11/10/2020, 11:55. [facility], CT, CT ABDOMEN PELVIS W CON, 06/16/2020, 12:07. [facility], CT, CT CHEST ABD PEL W CON, 03/22/2021, 12:00. FINDINGS: Image quality: Excellent. CHEST: Lower Neck: No enlarged lymph nodes. Thyroid: Within normal limits. Axillae: No enlarged lymph nodes. Chest Wall: Unremarkable. Lungs and Airways: No consolidation or suspicious nodules. Pleura: No pneumothorax or pleural effusions. Heart: Heart size is normal. No pericardial effusion. Thoracic Vessels: The aorta and pulmonary arteries demonstrate normal size. Mediastinum and [place]: No enlarged lymph nodes. Esophagus: No wall thickening. No hiatal hernia. ABDOMEN: Liver: There are multiple hepatic hypodensities. The larger lesions are compatible with hepatic cysts. There are numerous tiny lesions, too small to further characterize, therefore, considered indeterminate. Gallbladder: May contain sludge or gallstones. Biliary ducts: Unremarkable. Pancreas: Unremarkable. Spleen: Unremarkable. Adrenal Glands: Unremarkable. Kidneys and Ureters: There is moderate right hydronephrosis and mild right hydroureter with the right ureter mildly dilated to the level of sacroiliac joint. Trace left renal pelviectasis. Stomach and Bowel: Stomach, small bowel loops, and colon are unremarkable. Peritoneum: No abnormal intraperitoneal fluid. No free air. Ventral Wall: No hernia. Abdominal Nodes: Retroperitoneal lymphadenopathy, increased compared to the last exam. Reference lesions are listed in the followin) 2.2 x 3.3 cm precaval lymph node; series 2, image 85; previously 0.9 x 1.6 cm. 2) 1.5 x 1.3 cm left para-aortic lymph node; series 2, image 85; new. There is also iliac lymphadenopathy. Reference lesions are listed in the followin) 1.9 x 2.4 cm left common iliac lymph node; series 2, image 90; new. 2) 1.7 x 2.4 cm left common iliac lymph node; series 2, image 101; previously 1.0 x 1.4 cm. 3) 1.8 cm diameter left external iliac lymph node; series 2, image 99; previously 1.3 cm. 4) 1.9 x 3.3 cm left external iliac lymph node; series 2, image 102; new. 5) Stranding and 2.2 x 3.2 mass along the left common iliac artery; series 2 image 93; new. 6) 1.3 cm right internal iliac lymph node; series 2, image 109; new. Vessels: Aorta and inferior vena cava are normal in size. PELVIS: Pelvic Organs: Irregular hysterectomy stump. Soft tissue nodules or pelvic sidewall lymph nodes are increased in size. Reference lesions are listed in the following 1) 2.4 x 3.2 cm right pelvic mass; series 2, image 107; previously 1.7 x 2.4 cm. 2) 1.2 cm left pelvic mass; series 2, image 104; previously 0.8 cm. 3. 1.7 x 2.3 cm mass left of the sigmoid colon; previously 1.4 by 2.1 cm. Bladder: Unremarkable. Pelvic Nodes: Please see above. Miscellaneous: No inguinal hernias are seen. Bones: Degenerative changes in spine are noted. IMPRESSION: Overall worsening of disease. 1. Increase in number and size of retroperitoneal and iliac lymph nodes consistent with worsening of cali metastases. 2. Peritoneal nodules versus pelvic lymph nodes demonstrate interval enlargement. 3. Multiple hypodense lesions in liver are unchanged, most likely hepatic cysts. Many tiny lesions are too small to further characterize, therefore, are indeterminate. 4. Moderate right hydronephrosis and mild right hydroureter. Dictated by: Fredy Mercer M.D. on 07/02/2021 at 14:33 Approved by: Fredy Mercer M.D. on 07/02/2021 at 15:51
== END ==
PROVIDERS: PCP Family Medicine; Referring Provider Specialist; Visit Provider Specialist
DX: C56.9 Malignant neoplasm of unspecified ovary (principal); N13.30 Unspecified hydronephrosis; N13.4 Hydroureter
CPT/HCPCS: 71260; 74177

== ENCOUNTER → 2021-07-16 12:30 | Outpatient (ROUT) | payer OTHER, SELFPAY ==
[2021-07-16 12:44] LABS: Add Manual Diff / Slide Review NO; Basophils Absolute Auto 0 /uL (0-100); Basophils Percent Auto 0.3 % (0-2); Eosinophils Absolute Auto 100 /uL (0-450); Eosinophils Percent Auto 2.6 % (2-4); Hemoglobin 12.6 g/dL (12.0-16.0); Lymphocytes Absolute Auto 700 /uL (1100-4500); Lymphocytes Percent Auto 18.7 % (25-40); Mean Corpuscular Hemoglobin 31.5 PG (26-34); Mean Corpuscular Volume 92.7 fL (80-100); Monocytes Absolute Auto 300 /uL (0-900); Monocytes Percent Auto 6.5 % (3-14); Neutrophils Absolute Auto 2800 /uL (1500-7000); Neutrophils Percent Auto 71.9 % (50-75); Platelet Count 232 X10^3/uL (150-400); Red Blood Cell Count 3.99 X10^6/uL (4.0-5.2); Red Cell Distribution Width 12.2 % (11.6-14.8); White Blood Cell Count 3.9 X10^3/uL (4.5-11.0)
[2021-07-16 12:57] LABS: Alanine Aminotransferase 27 IU/L (<35); Albumin 4.3 g/dL (3.5-5.0); Albumin Globulin Ratio 1.7 (1.0-2.8); Alkaline Phosphatase 99 U/L (38-126); Aspartate Aminotransferase 31 IU/L (14-36); BUN Creatinine Ratio 12.9 (6-22); Blood Urea Nitrogen 9 mg/dL (7-17); Calcium 9.5 mg/dL (8.4-10.2); Carbon Dioxide 30 mmol/L (22-32); Chloride 99 mmol/L (98-107); Estimated Glomerular Filt Rate > 60.0 mL/min (>60); Globulin 2.6 g/dL (1.7-4.1); Glucose 118 mg/dL (70-100); HEMOLYSIS < 15 (0-50); Potassium 3.8 mmol/L (3.4-5.1); Sodium 134 mmol/L (137-145); Total Protein 6.9 g/dL (6.3-8.2)
== END ==
PROVIDERS: PCP Family Medicine; Visit Provider Family Medicine
DX: R10.9 Unspecified abdominal pain (principal)
CPT/HCPCS: 80053; 85025

== ENCOUNTER → 2021-08-03 15:20 | Outpatient (CLI) | payer OTHER, SELFPAY ==
[2021-08-03 16:39] LABS: COVID19 -Nasal RAPID Negative (Negative)
== END ==
PROVIDERS: PCP Family Medicine; Visit Provider Surgery
DX: Z01.812 Encounter for preprocedural laboratory examination (principal); Z20.822 Contact with and (suspected) exposure to COVID-19
CPT/HCPCS: 87635

== ENCOUNTER 2021-08-06 06:41 | Day surgery (SDC) | payer OTHER, SELFPAY ==
[2021-08-06] VITALS (11 sets, daily range): BP systolic 130–173; BP diastolic 61–89; PULSE 68–80; RESP 12–20; TEMP 36.2–36.7; O2SAT 93–97; BMI 25.4
[2021-08-06] MEDS: SCOPOLAMINE 1 PATCH TOP (07:28)
[2021-08-06] MEDS: ACETAMINOPHEN 325 MG TABLET 975 MG PO (07:28)
[2021-08-06] MEDS: GABAPENTIN 300 MG CAPSULE PO (07:28)
[2021-08-06] MEDS: LACTATED RINGERS 1,000 ML 42 ML IV (07:30)
--- NOTE | 2021-08-06 07:54 | PM.PREOP ---
Pre-operative Note COVID-19 COVID-19 status: Negative Interval Note History & Physical reviewed/Exam performed by Physician: Yes Changes to H&P: No
[2021-08-06] MEDS: CEFAZOLIN 1 GM VIAL 2 GM IV (08:17)
--- NOTE | 2021-08-06 08:30 | SUR.OPER ---
Supine on padded OR bed, head on gel donut, rolled towel placed between shoulder blades, arms padded and tucked at sides, legs uncrossed, safety belt at thigh, pillow under knees, tape over blanket over lower legs .
[2021-08-06] MEDS: HEPARIN 5,000 UNIT, SODIUM CHLORIDE 0.9% 50 ML IV (08:35)
[2021-08-06] MEDS: BUPIVACAINE 0.5% (PF) VIAL 30 ML INJ (08:36)
[2021-08-06] MEDS: EPINEPHrine 1 MG/ML SUBCUT (08:38)
--- NOTE | 2021-08-06 09:15 | DI.RAD.S_ITS ---
PROCEDURE: XR CHEST 1V INDICATIONS: PORT A CATH RIGHT TECHNIQUE: One view of the chest was acquired. COMPARISON: [facility], CT, CT CHEST ABD PEL W CON, 07/02/2021, 12:11. FINDINGS: Surgical changes and devices: Right-sided port is seen with the catheter tip projecting at the level of the lower SVC/cavoatrial junction. Lungs and pleura: Low lung volumes.Scattered subsegmental atelectasis and/or scarring, including in the retrocardiac left lower lobe. No definite focal consolidation. No pleural effusions or pneumothorax. Mediastinum: Mediastinal contours appear normal. Heart size is normal. Bones and chest wall: No suspicious bony lesions. Overlying soft tissues appear unremarkable. IMPRESSION: Right-sided port with the tip projecting at the cavoatrial junction. No pneumothorax. Dictated by: Guerrero Traore M.D. on 08/06/2021 at 10:46 Approved by: Guerrero Traore M.D. on 08/06/2021 at 10:49
--- NOTE | 2021-08-06 09:23 | P.OP_ITS ---
Operative Date/Time/Diagnoses Date of procedure: 08/06/21 Pre-op diagnosis: Ovarian cancer Post-op diagnosis: same Procedure & Clinicians Procedure: Port-A-Cath Same procedure as scheduled: Yes Indications: Ovarian cancer Surgeon: Marcos Bates Anesthesia Type: General Operative Notes Findings: The patient was brought to the operating room placed on the table in the supine position with the arms tucked. Ancef was administered. General anesthesia was induced via LMA. A time-out was performed. The right chest and neck were prepped and draped in the usual fashion. An ultrasound was used to identify the right internal jugular vein. There was noted to be patent. The right internal jugular vein was accessed via the Seldinger technique. The guidewire was inserted into the superior vena cava. A chest x-ray confirmed proper position and no ectopy was noted. The needle was removed and the wire was clamped to the drape. Next a port pocket was created just inferior to the medial right clavicle. Dissection was carried down to the pectoral fascia. A subcutaneous pocket was created using a combination of sharp and blunt dissection. Next, the port which was primed with injectable saline was secured to the fascia with 2 3-0 PDS wu tures left untied and clamped. Then, the neck incision was extended with an 11 blade scalpel to approximately 5 mm. The dilator and peel-away sheath were inserted over the wire without resistance. The catheter which was primed with saline as well was tunneled from the neck incision to the chest incision in the subcutaneous tissue. We then removed the wire and the dilator and inserted the catheter through the peel-away sheath to deliver the catheter into the superior vena cava. We checked the depth with the C-arm and noted the tip was in the superior vena cava. We then trimmed the distal aspect of the catheter and attached it to the port using the strain relief collar. A final image showed good position of the catheter with no kinks. The port was then tucked into the subcutaneous pocket and the sutures were tied started to secure the device. We then accessed the port using the Jones needle and noted that the device were drawn flush easily without resistance. Approximately 4 mL of heparinized saline were injected into the device. The skin incisions were closed with 3-0 Vicryl and 4-0 Monocryl. Steri-Strips were applied patient was awakened and brought to recovery room EBL 5 mL Post-operative Condition: stable Disposition: PACU
[2021-08-06] MEDS: ONDANSETRON 4 MG/2 ML INJ IV (09:58)
[2021-08-06] MEDS: HYDROCODONE/ACET 5/325 TABLET 1 TAB PO ×2 (10:02→10:31)
[2021-08-06] MEDS: fentaNYL 100 MCG/2 ML INJ IV (10:25)
[2021-08-06] MEDS: LORazepam 2 MG/ML INJ 0.25 MG IV (10:28)
[2021-08-06] MEDS: LACTATED RINGERS 1,000 ML 120 ML IV (10:29)
--- NOTE | 2021-08-06 10:37 | SUR.PHASEI ---
Report given to ALEX Lopez
== END 2021-08-06 11:56 | disposition home or self-care (01) ==
PROVIDERS: PCP Family Medicine; Referring Provider Surgery; Visit Provider Surgery
PROC: (CPT 36561; principal; 2021-08-06 07:45)
DX: C56.9 Malignant neoplasm of unspecified ovary (principal); J45.909 Unspecified asthma, uncomplicated
CPT/HCPCS: 36561; 71045; 76000; C1788; J0171; J0690; J1100; J1644; J1885; J2060; J2250; J2405; J2704; J3010

== ENCOUNTER → 2021-08-28 12:02 | Outpatient (ROUT) | payer OTHER, SELFPAY ==
[2021-08-28 12:10] LABS: Add Manual Diff / Slide Review NO; Basophils Absolute Auto 0 /uL (0-100); Basophils Percent Auto 0.4 % (0-2); Eosinophils Absolute Auto 100 /uL (0-450); Eosinophils Percent Auto 3.6 % (2-4); Hematocrit 34.4 % (36-46); Hemoglobin 11.7 g/dL (12.0-16.0); Lymphocytes Absolute Auto 600 /uL (1100-4500); Mean Corpuscular HGB Conc 33.9 % (30-36); Mean Corpuscular Hemoglobin 30.7 PG (26-34); Mean Corpuscular Volume 90.6 fL (80-100); Monocytes Absolute Auto 100 /uL (0-900); Monocytes Percent Auto 5.3 % (3-14); Neutrophils Absolute Auto 1600 /uL (1500-7000); Neutrophils Percent Auto 65.7 % (50-75); Platelet Count 173 X10^3/uL (150-400); Red Cell Distribution Width 12.9 % (11.6-14.8); White Blood Cell Count 2.5 X10^3/uL (4.5-11.0)
[2021-08-28 12:15] LABS: Alanine Aminotransferase 26 IU/L (<35); Albumin Globulin Ratio 1.5 (1.0-2.8); Alkaline Phosphatase 128 U/L (38-126); Aspartate Aminotransferase 37 IU/L (14-36); BUN Creatinine Ratio 13.2 (6-22); Blood Urea Nitrogen 9 mg/dL (7-17); Calcium 9.5 mg/dL (8.4-10.2); Carbon Dioxide 28 mmol/L (22-32); Chloride 100 mmol/L (98-107); Estimated Glomerular Filt Rate > 60.0 mL/min (>60); Globulin 2.6 g/dL (1.7-4.1); Glucose 111 mg/dL (70-100); HEMOLYSIS < 15 (0-50); Potassium 3.7 mmol/L (3.4-5.1); Sodium 136 mmol/L (137-145); Total Protein 6.6 g/dL (6.3-8.2)
== END ==
PROVIDERS: PCP Family Medicine; Visit Provider Internal Medicine Medical Oncology
DX: C56.1 Malignant neoplasm of right ovary (principal)
CPT/HCPCS: 80053; 85025

== ENCOUNTER → 2021-09-27 15:06 | Outpatient (ROUT) | payer OTHER, SELFPAY ==
[2021-09-27 15:32] LABS: Add Manual Diff / Slide Review NO; Basophils Absolute Auto 0 /uL (0-100); Basophils Percent Auto 0.4 % (0-2); Eosinophils Absolute Auto 100 /uL (0-450); Eosinophils Percent Auto 2.9 % (2-4); Hematocrit 35.2 % (36-46); Hemoglobin 12.2 g/dL (12.0-16.0); Lymphocytes Absolute Auto 600 /uL (1100-4500); Lymphocytes Percent Auto 25.4 % (25-40); Mean Corpuscular HGB Conc 34.8 % (30-36); Mean Corpuscular Volume 89.1 fL (80-100); Monocytes Absolute Auto 200 /uL (0-900); Monocytes Percent Auto 8.1 % (3-14); Neutrophils Absolute Auto 1600 /uL (1500-7000); Neutrophils Percent Auto 63.2 % (50-75); Platelet Count 171 X10^3/uL (150-400); Red Blood Cell Count 3.95 X10^6/uL (4.0-5.2); Red Cell Distribution Width 14.4 % (11.6-14.8); White Blood Cell Count 2.5 X10^3/uL (4.5-11.0)
[2021-09-27 15:57] LABS: Alanine Aminotransferase 26 IU/L (<35); Albumin 4.1 g/dL (3.5-5.0); Albumin Globulin Ratio 1.5 (1.0-2.8); Alkaline Phosphatase 125 U/L (38-126); Aspartate Aminotransferase 46 IU/L (14-36); BUN Creatinine Ratio 12.8 (6-22); Bilirubin Total 0.7 mg/dL (0.2-1.3); Blood Urea Nitrogen 11 mg/dL (7-17); Calcium 9.7 mg/dL (8.4-10.2); Carbon Dioxide 30 mmol/L (22-32); Chloride 104 mmol/L (98-107); Estimated Glomerular Filt Rate > 60.0 mL/min (>60); Globulin 2.7 g/dL (1.7-4.1); Glucose 117 mg/dL (70-100); HEMOLYSIS < 15 (0-50); Potassium 3.7 mmol/L (3.4-5.1); Sodium 137 mmol/L (137-145); Total Protein 6.8 g/dL (6.3-8.2)
== END ==
PROVIDERS: PCP Family Medicine; Visit Provider Internal Medicine Medical Oncology
DX: C56.1 Malignant neoplasm of right ovary (principal)
CPT/HCPCS: 80053; 85025

== ENCOUNTER → 2021-10-23 12:55 | Outpatient (ROUT) | payer OTHER, SELFPAY ==
[2021-10-23 13:01] LABS: Add Manual Diff / Slide Review NO; Basophils Absolute Auto 0 /uL (0-100); Basophils Percent Auto 0.6 % (0-2); Eosinophils Absolute Auto 100 /uL (0-450); Eosinophils Percent Auto 2.4 % (2-4); Hematocrit 34.2 % (36-46); Hemoglobin 11.5 g/dL (12.0-16.0); Lymphocytes Absolute Auto 600 /uL (1100-4500); Lymphocytes Percent Auto 24.7 % (25-40); Mean Corpuscular HGB Conc 33.7 % (30-36); Mean Corpuscular Hemoglobin 30.8 PG (26-34); Mean Corpuscular Volume 91.1 fL (80-100); Monocytes Absolute Auto 200 /uL (0-900); Monocytes Percent Auto 7.3 % (3-14); Neutrophils Absolute Auto 1500 /uL (1500-7000); Platelet Count 115 X10^3/uL (150-400); Red Blood Cell Count 3.76 X10^6/uL (4.0-5.2); Red Cell Distribution Width 15.6 % (11.6-14.8); White Blood Cell Count 2.4 X10^3/uL (4.5-11.0)
[2021-10-23 13:16] LABS: Alanine Aminotransferase 32 IU/L (<35); Albumin Globulin Ratio 1.5 (1.0-2.8); Alkaline Phosphatase 128 U/L (38-126); Aspartate Aminotransferase 52 IU/L (14-36); BUN Creatinine Ratio 18.1 (6-22); Bilirubin Total 0.8 mg/dL (0.2-1.3); Blood Urea Nitrogen 13 mg/dL (7-17); Calcium 9.5 mg/dL (8.4-10.2); Carbon Dioxide 32 mmol/L (22-32); Chloride 100 mmol/L (98-107); Estimated Glomerular Filt Rate > 60.0 mL/min (>60); Globulin 2.7 g/dL (1.7-4.1); Glucose 100 mg/dL (70-100); HEMOLYSIS < 15 (0-50); Potassium 3.6 mmol/L (3.4-5.1); Sodium 137 mmol/L (137-145); Total Protein 6.7 g/dL (6.3-8.2)
== END ==
PROVIDERS: PCP Family Medicine; Visit Provider Internal Medicine Medical Oncology
DX: C56.1 Malignant neoplasm of right ovary (principal)
CPT/HCPCS: 80053; 85025

== ENCOUNTER → 2021-12-04 09:01 | Outpatient (CLI) | payer OTHER, SELFPAY ==
--- NOTE | 2021-12-04 09:02 | DI.CT.S_ITS ---
PROCEDURE: CT CHEST ABD PEL W CON INDICATIONS: restaging ovarian cancer after treatment TECHNIQUE: After the administration of oral and intravenous contrast, axial sections acquired from the supraclavicular neck to the pubic symphysis. Coronal and sagittal reformats were performed. For radiation dose reduction, the following was used: automated exposure control, adjustment of mA and/or kV according to patient size. COMPARISON:[facility], CT, CT CHEST ABD PEL W CON, 07/02/2021, 12:11. FINDINGS: Image quality: Excellent. CHEST: Lower Neck: No enlarged lymph nodes. Thyroid: Within normal limits. Axillae: No enlarged lymph nodes. Chest Wall: Unremarkable. Lungs and Airways: No bilateral, predominant peripheral ground-glass airspace opacities are seen predominantly in the lower lobes, concerning for an atypical infectious process. No suspicious pulmonary mass. Pleura: No pneumothorax or pleural effusions. Heart: Heart size is normal. No pericardial effusion. Thoracic Vessels: The aorta and pulmonary arteries demonstrate normal size. Mediastinum and [place]: No enlarged lymph nodes. Esophagus: No wall thickening. No hiatal hernia. ABDOMEN: Liver: Increased size and number of hypoattenuating lesions in the liver, compatible with progression of metastatic disease. Gallbladder: Unremarkable. Biliary ducts: Unremarkable. Pancreas: Unremarkable. Spleen: Unremarkable. Adrenal Glands: Unremarkable. Kidneys and Ureters: Delayed right nephrogram with increase hydronephrosis and hydroureter. Normal contrast enhancement of the left kidney without hydronephrosis. Stomach and Bowel: No evidence of intestinal obstruction. Normal appendix. Peritoneum: No abnormal intraperitoneal fluid. No free air. Ventral Wall: No hernia. Abdominal Nodes: Multiple cystic and solid lesions are seen within the retroperitoneum. Precaval node: 3.8 x 4.5 cm (2-85); previously measuring 2.2 x 3.3 cm Vessels: No aneurysmal dilatation of the aorta. Mass effect upon the vena cava by the aforementioned precaval node. PELVIS: Pelvic Organs: Unremarkable. Bladder: Not well distended. Pelvic Nodes: Multiple solid and cystic masses, which have increased in size and number. Miscellaneous: No inguinal hernias are seen. Bones: Heterogeneous attenuation of the osseous structures without evidence of cortical destruction. Multifocal degenerative change. IMPRESSION: 1. Increased size and number hypoattenuating liver lesions, compatible with worsening metastatic disease. 2. Increased size and number of retroperitoneal and pelvic lymph nodes, compatible worsening metastatic disease. 3. Worsening right hydronephrosis and hydroureter. 4. Peripheral ground-glass airspace opacities, concerning for an atypical (viral) infectious process. Dictated by: Ramírez Strauss M.D. on 12/04/2021 at 11:37 Approved by: Ramírez Strauss M.D. on 12/04/2021 at 11:51
== END ==
PROVIDERS: PCP Family Medicine; Referring Provider Internal Medicine Medical Oncology; Visit Provider Internal Medicine Medical Oncology
DX: C56.1 Malignant neoplasm of right ovary (principal); K76.9 Liver disease, unspecified; R59.0 Localized enlarged lymph nodes; N13.30 Unspecified hydronephrosis
CPT/HCPCS: 71260; 74177

== ENCOUNTER → 2021-12-27 15:42 | Outpatient (CLI) | payer OTHER, SELFPAY ==
[2021-12-27 16:25] LABS: COVID19 -Nasal RAPID Negative (Negative)
== END ==
PROVIDERS: PCP Family Medicine; Visit Provider Specialist
DX: N13.5 Crossing vessel and stricture of ureter without hydronephrosis (principal); N13.30 Unspecified hydronephrosis; N17.9 Acute kidney failure, unspecified; Z20.822 Contact with and (suspected) exposure to COVID-19
CPT/HCPCS: 81002; 87635

== ENCOUNTER 2021-12-28 07:26 | Day surgery (SDC) | payer OTHER, SELFPAY ==
[2021-12-28] VITALS (10 sets, daily range): BP systolic 100–145; BP diastolic 52–85; PULSE 63–87; RESP 12–16; TEMP 36.5–37.1; O2SAT 92–100; BMI 48.0; BMI 21.7
--- NOTE | 2021-12-28 | DI.RAD.S_ITS ---
PROCEDURE: XR ABDOMEN 1V INDICATIONS: CYSTOSCOPY TECHNIQUE: One fluoroscopic view of the abdomen acquired. COMPARISON: [facility], CT, CT CHEST ABD PEL W CON, 12/04/2021, 10:20. FINDINGS: Right hydronephrosis, severe. Single image demonstrates a ureteral stent within the right renal pelvis. IMPRESSION: Intra procedural guidance. Dictated by: López Mckenzie M.D. on 12/28/2021 at 10:51 Approved by: López Mckenzie M.D. on 12/28/2021 at 10:52
[2021-12-28] MEDS: ONDANSETRON 4 MG/2 ML INJ IV (08:27)
[2021-12-28] MEDS: diphenhydrAMINE 50 MG/ML VIAL 25 MG IV (08:27)
[2021-12-28] MEDS: LORazepam 2 MG/ML INJ 0.5 MG IV (08:31)
[2021-12-28] MEDS: fentaNYL 100 MCG/2 ML INJ 50 MCG IV (08:38)
--- NOTE | 2021-12-28 08:41 | PM.PREOP ---
Pre-operative Note COVID-19 COVID-19 status: Negative Result date/Date tested (Pos, Neg/Pending): 12/27/21 Criteria for continued procedure: Expected advancement of disease process, Possibility delay results in more complex future surgery or treatment, Increased loss of function, Continuing or worsening of significant or severe pain, Deterioration of the patient's condition or overall health, Delay expected to result in less-positive ultimate med/surg outcome and Non-surgical alternatives not available or appropriate per current SOC Interval Note History & Physical reviewed/Exam performed by Physician: Yes Changes to H&P: No
[2021-12-28] MEDS: LACTATED RINGERS 1,000 ML 42 ML IV ×2 (09:00→09:25)
[2021-12-28] MEDS: CEFAZOLIN 2 GM/20 ML SYRINGE IV (09:10)
[2021-12-28] MEDS: IOPAMIDOL 50 ML VIAL INJ (09:32)
--- NOTE | 2021-12-28 09:34 | SUR.OPER ---
Lithotomy on padded OR bed, head on pillow, arms secured on padded arm boards at <90 degrees abduction. Legs secured in padded yellow fins stirrups.
[2021-12-28] MEDS: BELLADONNA/OPIUM SUPPOSITORIES 1 EACH PR (09:55)
--- NOTE | 2021-12-28 10:05 | PM.OP.1 ---
Operative Date/Time/Diagnoses Date of procedure: 12/28/21 Time of procedure: 10:05 Pre-op diagnosis: 1. High-grade right ureteral obstruction. 2. Intractable right renal colic. 3. Acute kidney injury. Post-op diagnosis: same Procedure & Clinicians Procedure: 1. Cystoscopy/right retrograde pyelogram. 2. Cystoscopy/placement right metallic ureteral stent (8 Moldovan x 26 cm). Same procedure as scheduled: Yes Indications: 1. High-grade right ureteral obstruction. 2. Intractable right renal colic. 3. Acute kidney injury Surgeon: Sandy Pack Click Yes if Unassisted: Yes Anesthesia Type: General Operative Notes Findings: 1. Urethra-normal caliber without lesion or obstruction. 2. Bladder normal urothelium throughout. Clear efflux seen from left ureteral orifice no efflux observed after observation from right ureteral orifice 3. Right retrograde pyelogram-severe right hydronephrosis and tortuosity of the most proximal ureter with level of obstruction at approximately the inferior plate of L3. 4. Following positioning of the metallic ureteral stent a dark, maroon obstructive efflux was visualized emanating from the right ureteral orifice. Closure Type: not applicable Specimen(s): none sent Applied: other (Eight Moldovan by 26 cm metallic ureteral stent) Estimated Blood Loss (mL): 0 Blood products transfused: none Procedure in detail: The patient was positioned in supine and was administered general anesthesia. She was then repositioned in semilithotomy and the lower abdomen, genitalia, and groin were then prepped and draped in sterile fashion. A 22 Moldovan panendoscope was passed a lower urinary tract with the findings as described above. A 0.35 hybrid guidewire was then advanced into the right collecting system under direct and fluoroscopic guidance. A 5 Moldovan pollock catheter was then advanced over the hybrid guidewire with this significant evidence of obstruction both within the pelvic course of the right ureter as well as the mid ureter. A right retrograde pyelogram was then performed with the findings as described above. Intraoperative images were obtained and request for submission into film library made. The [place] catheter was then backloaded off the hybrid guidewire. The metallic stent introducer sheath was then advanced over the hybrid guidewire under direct fluoroscopic guidance. The radiopaque marker was then position just above the ureteropelvic junction, and the inner sheath was then backloaded off the hybrid guidewire. The hybrid guidewire was then backloaded out of the outer introducer sheath. Metallic stent was then advanced into the introducer sheath and then using the inner portion of the sheath, under direct and fluoroscopic guidance metallic stent was positioned appropriately with the proximal coil within the dilated renal pelvis and the distal coil within the bladder. The bladder was then drained completely in the rowe endoscope was removed the patient was then repositioned in supine, was awakened, and then was transferred to recovery room in stable condition. Complications: none Post-operative Condition: stable Disposition: PACU Plan for aftercare: Discharge home.
--- NOTE | 2021-12-28 10:36 | SUR.PHASEI ---
Patient arousable to verbal and tactile stimuli but falls back to sleep. VSS; No distress noted.
--- NOTE | 2021-12-28 12:17 | SUR.PHASEII ---
Late entry: Assumed care mala starr, pt rested comfortably, up to BR 2 times to void. Denied need for pain medication. Pt voiced wanting to go home, called and on his way.
--- NOTE | 2021-12-28 13:25 | SUR.PHASEII ---
Late entry: Assumed care of pt, pt denied need of pain meds, stated she was comfortable. Up to BR x 2, steady when up. Dressed when ready, left unit it stable condition.
== END 2021-12-28 12:30 | disposition home or self-care (01) ==
PROVIDERS: PCP Family Medicine; Referring Provider Specialist; Visit Provider Specialist
PROC: (CPT 52332; principal; 2021-12-28 09:00)
DX: N13.1 Hydronephrosis with ureteral stricture, not elsewhere classified (principal); N17.9 Acute kidney failure, unspecified
CPT/HCPCS: 52332; 74018; 76000; J0690; J1100; J1200; J2060; J2405; J2704; J3010

== ENCOUNTER 2021-12-29 13:14 | Emergency (ER) | payer OTHER, SELFPAY ==
[2021-12-29] VITALS (15 sets, daily range): BP systolic 146–168; BP diastolic 67–87; PULSE 60–76; RESP 13–25; TEMP 36.6; O2SAT 92–99; BMI 22.9
--- NOTE | 2021-12-29 13:28 | ED_ITS ---
HPI - Abdominal Pain General Chief Complaint: Abdominal Pain Stated Complaint: ruthy thinks bowel obstruction Time Seen by Provider: 12/29/21 13:23 History of Present Illness HPI narrative: 56-year-old female nonsmoker with history of ovarian cancer and recent ureteral stent placement presents with family in the chief complaint of gradually worsening generalized abdominal pain for the past few days. She has had decreased bowel movements since starting pain meds and nausea meds to help with her obstructive uropathy. She had a procedure yesterday and continues to have worsening pain which seems to have settled in her left lower quadrant. She has had significant episodes of nausea and vomiting, no bowel movement for 4 days though she is still passing gas. She's got no fever or chills. SHe denies chest pain, SOB. Related Data Home Medications Medication Instructions Recorded Confirmed beclomethasone dipropionate 80 80 mcg INHALATION DAILY 10/30/20 12/27/21 mcg/actuation aerosol inhaler thyroid (pork) 60 mg tablet 180 mg PO DAILY 10/30/20 12/27/21 ([facility] Thyroid) diphenhydramine HCl 25 mg capsule 25 mg PO BEDTIME PRN 11/15/20 12/27/21 (Benadryl) elderberry fruit 200 mg capsule 1,000 mg PO DAILY 11/15/20 12/27/21 estradiol 1 mg tablet 1 mg PO DAILY 11/15/20 12/27/21 lysine 500 mg tablet 1,000 mg PO DAILY 11/15/20 12/27/21 naproxen sodium 220 mg tablet 220 mg PO PRN PRN 11/15/20 12/27/21 (Aleve) loratadine 10 mg tablet (Claritin) 10 mg PO DAILY PRN 08/06/21 12/27/21 Previous Rx's Medication Instructions Recorded lidocaine-prilocaine 2.5 %-2.5 % 1 applic TOPICAL PRN PRN #30 g 08/15/21 topical cream ondansetron HCl 4 mg tablet 4 mg PO Q6H #30 tab 08/15/21 (Zofran) prochlorperazine maleate 10 mg 10 mg PO Q6H PRN #30 tab 08/15/21 tablet (Compazine) cyclobenzaprine 5 mg tablet 5 mg PO BEDTIME #20 tab 08/22/21 lorazepam 0.5 mg tablet (Ativan) See Rx Instructions .ROUTE 11/07/21 .COMPLEX PRN #20 tab ondansetron 8 mg disintegrating 8 mg PO Q12H PRN #25 tab 11/07/21 tablet oxycodone 5 mg tablet 5 mg PO Q6H PRN #30 tab 11/07/21 oxycodone 5 mg capsule 5 mg PO Q6H PRN #60 cap 12/25/21 morphine 15 mg tablet,extended 15 mg PO Q8H #90 tab 12/26/21 release (MS Contin) Allergies Allergy/AdvReac Type Severity Reaction Status Date / Time No Known Drug Allergies Allergy Verified 12/27/21 15:48 Review of Systems Review of Systems Narrative: GENERAL: See HPI HEENT: Denies sinus pain, ear pain, sore throat, difficulty swallowing, dizziness. RESPIRATORY: Denies dyspnea, cough, wheezing, hemoptysis, sputum. CARDIOVASCULAR: Denies chest pain, palpitations, orthopnea, edema, GASTROINTESTINAL: See HPI : Denies dysuria, frequency, incontinence, hematuria, urinary retention. MUSCULOSKELETAL: denies weakness, joint pain, or bony pain SKIN: Denies rash, skin lesions, or other NEUROLOGIC: Denies weakness, headache, numbness, change in speech, confusion, seizures, incoordination. PSYCHIATRIC: No concerning psychosocial issues. 12 point review of systems is negative except for those stated above Patient History Medical History (Updated 12/29/21 @ 18:55 by Keshawn Narayanan DO) Acute kidney injury Asthma Endometrioid adenocarcinoma of right ovary Hydronephrosis of right kidney Obstruction of right ureter Surgical History History of exploratory laparotomy (~07/20/20) History of surgery History of surgery S/P ELIAZAR-BSO Family History Mother Cancer Hypertension Father Hypertension Social History marital status: household members: spouse Smoking Status: Never smoker alcohol intake: current Smoking Status: Never smoker alcohol intake frequency: a few times a month Substance Use Type: opiates Exam Narrative Exam Narrative: GENERAL: [56 year old patient appears stated age. Well-developed patient, in moderate stress, clearly uncomfortable, holding an emesis bag rubbing her left flank and upper abdomen HEAD: Atraumatic. Normocephalic. EYES: Pupils equal round and reactive. Extraocular motions intact. No scleral icterus. No injection or drainage. ENT: Dry mucous membrane Nose without bleeding, purulent drainage. Throat without erythema, tonsillar hypertrophy or exudate. Airway patent. NECK: Trachea midline. Non tender CARDIOVASCULAR: Regular rate and rhythm without murmurs, gallops, or rubs. RESPIRATORY: Clear to auscultation. Breath sounds equal bilaterally. No wheezes, rales, or rhonchi. GASTROINTESTINAL: Abdomen soft, generally tender without rebound. Bowel sounds present but quiet. EXTREMITIES: No edema or joint tenderness. BACK: Nontender without deformity or crepitance. Left flank tenderness NEURO: AOx3. SKIN: Poor skin turgor No rash or erythema of visible areas Initial Vital Signs Initial Vital Signs: Vital Signs Temperature 97.8 F 12/29/21 13:20 Pulse Rate 76 12/29/21 13:20 Respiratory Rate 18 12/29/21 13:20 Blood Pressure 159/70 H 12/29/21 13:20 Pulse Oximetry 96 12/29/21 13:20 Course Course Course Narrative: Patient presents with decreased bowel movements over the past 4 days associated with significant nausea and vomiting. She was recently stented for an obstructive uropathy thought to be secondary to a mass in her abdomen related to metastatic disease. She has had significant nausea and vomiting and is still passing gas but has poor appetite and feels very unwell. She is still making urine but not as much. She was given nearly 2 L of fluid and labs were rechecked with minimal change in her renal function. Discuss with local hospitalist and we sure the opinion this is not the appropriate facility and she will need to have access to Urology as she may need another stent, we do not have urology coverage until a least Friday as well as possibly nephrology given kidney function and hyponatremia. Her history and physical would suggest pre renal failure. FeNa is 0.4% which is also consistent with a prerenal cause. Orders Ordered: ED Orders 12/29/21 13:33 XR acute abdomen series Stat 12/29/21 13:45 Complete Blood Count AUTO DIFF Stat Comprehensive Metabolic Panel Stat Lactate (Lactic Acid) Stat 12/29/21 14:04 Urine Culture Stat Urine Microscopic Stat 12/29/21 14:34 CT kidney ureter bladder (KUB) Stat 12/29/21 15:00 COVID19 -Nasal swab/Pre-Proc Stat 12/29/21 15:38 Creatinine Urine Random Stat Sodium Urine Random Stat 12/29/21 16:08 BMP [Basic Metabolic Panel] Stat Discontinued Medications Hydromorphone HCl (Hydromorphone 0.5 Mg Inj) 0.5 mg IV NOW ONE Stop: 12/29/21 15:36 Last Admin: 12/29/21 15:40 Dose: 0.5 mg Documented by: TOMÁS Sodium Chloride (Normal Saline 0.9%) 1,000 mls @ 1,000 mls/hr IV BOLUS ONE Stop: 12/29/21 14:32 Last Infusion: 12/29/21 16:05 Dose: 0 mls/hr Documented by: Admin: 12/29/21 13:39 Dose: 1,000 mls/hr Documented by: SOTO Ondansetron HCl (Ondansetron 4 Mg/2 Ml Inj) 4 mg IV NOW ONE Stop: 12/29/21 13:34 Last Admin: 12/29/21 13:39 Dose: 4 mg Documented by: SOTO Pantoprazole Sodium (Pantoprazole 40 Mg Vial) 40 mg IV NOW ONE Stop: 12/29/21 15:36 Last Admin: 12/29/21 15:40 Dose: 40 mg Documented by: TOMÁS Reevaluation(s) Reevaluation #1: call to Dr. Spain. Requests transfer given lack of urology/nephrology. Reevaluation #2: [id number] - call to [facility] Vital Signs Vital signs: Vital Signs - 8 hr 12/29/21 13:20 12/29/21 13:34 12/29/21 14:05 Temperature 97.8 F Pulse Rate 76 68 63 Respiratory Rate 18 19 Blood Pressure 159/70 H Pulse Oximetry 96 97 92 12/29/21 14:30 12/29/21 15:00 12/29/21 15:01 Temperature Pulse Rate 63 60 61 Respiratory Rate 13 25 H 17 Blood Pressure 150/67 H Pulse Oximetry 99 98 99 12/29/21 15:30 12/29/21 16:00 12/29/21 16:11 Temperature Pulse Rate 63 68 68 Respiratory Rate 19 Blood Pressure 164/72 H Pulse Oximetry 98 98 97 12/29/21 16:30 12/29/21 17:00 12/29/21 17:30 Temperature Pulse Rate 65 69 71 Respiratory Rate 21 20 17 Blood Pressure 166/80 H 168/79 H 158/81 H Pulse Oximetry 96 98 98 12/29/21 18:00 Temperature Pulse Rate 72 Respiratory Rate 20 Blood Pressure 165/87 H Pulse Oximetry 98 MDM - Abdominal Pain Lab Data Result diagrams: 12/29/21 13:45 12/29/21 16:08 Labs: Lab Results 12/29/21 12/29/21 12/29/21 Range/Units 13:45 13:45 13:45 WBC 6.8 (4.5-11.0) X10^3/uL RBC 3.00 L (4.0-5.2) X10^6/uL Hgb 9.4 L (12.0-16.0) g/dL Hct 27.1 L (36-46) % MCV 90.2 (80-100) fL MCH 31.4 (26-34) PG MCHC 34.8 (30-36) % RDW 15.3 H (11.6-14.8) % Plt Count 149 L (150-400) X10^3/uL Neut % (Auto) 83.9 H (50-75) % Lymph % (Auto) 4.3 L (25-40) % Archer % (Auto) 11.4 (3-14) % Eos % (Auto) 0.2 L (2-4) % Baso % (Auto) 0.2 (0-2) % Neut # (Auto) 5700 (8643-6260) /uL Lymph # (Auto) 300 L (1146-6067) /uL Archer # (Auto) 800 (0-900) /uL Eos # (Auto) 0 (0-450) /uL Baso # (Auto) 0 (0-100) /uL Sodium 122 L (137-145) mmol/L Potassium 3.5 (3.4-5.1) mmol/L Chloride 90 L (98-107) mmol/L Carbon Dioxide 27 (22-32) mmol/L BUN 35 H (7-17) mg/dL Creatinine 2.53 H (0.52-1.04) mg/dL Estimated GFR 19.7 L (>60) mL/min BUN/Creatinine Ratio 13.8 (6-22) Glucose 125 H (70-100) mg/dL Lactate 1.5 (0.7-2.1) mmol/L Calcium 9.1 (8.4-10.2) mg/dL Total Bilirubin 0.6 (0.2-1.3) mg/dL AST 47 H (14-36) IU/L ALT 15 (<35) IU/L Alkaline Phosphatase 206 H (38-126) U/L Total Protein 6.9 (6.3-8.2) g/dL Albumin 3.5 (3.5-5.0) g/dL Globulin 3.4 (1.7-4.1) g/dL Albumin/Globulin Ratio 1.0 (1.0-2.8) Urine RBC (0-5/HPF) Urine WBC (0-5/HPF) Ur Squamous Epith Cells (0-5/HPF) Amorphous Sediment Urine Bacteria (None) Ur Culture Indicated? Ur Random Sodium (30-90) mmol/L Urine Creatinine mg/dL SARS-CoV-2 (PCR) (Negative) 12/29/21 12/29/21 12/29/21 Range/Units 14:04 15:00 15:38 WBC (4.5-11.0) X10^3/uL RBC (4.0-5.2) X10^6/uL Hgb (12.0-16.0) g/dL Hct (36-46) % MCV (80-100) fL MCH (26-34) PG MCHC (30-36) % RDW (11.6-14.8) % Plt Count (150-400) X10^3/uL Neut % (Auto) (50-75) % Lymph % (Auto) (25-40) % Archer % (Auto) (3-14) % Eos % (Auto) (2-4) % Baso % (Auto) (0-2) % Neut # (Auto) (1932-3137) /uL Lymph # (Auto) (5882-0155) /uL Archer # (Auto) (0-900) /uL Eos # (Auto) (0-450) /uL Baso # (Auto) (0-100) /uL Sodium (137-145) mmol/L Potassium (3.4-5.1) mmol/L Chloride (98-107) mmol/L Carbon Dioxide (22-32) mmol/L BUN (7-17) mg/dL Creatinine (0.52-1.04) mg/dL Estimated GFR (>60) mL/min BUN/Creatinine Ratio (6-22) Glucose (70-100) mg/dL Lactate (0.7-2.1) mmol/L Calcium (8.4-10.2) mg/dL Total Bilirubin (0.2-1.3) mg/dL AST (14-36) IU/L ALT (<35) IU/L Alkaline Phosphatase (38-126) U/L Total Protein (6.3-8.2) g/dL Albumin (3.5-5.0) g/dL Globulin (1.7-4.1) g/dL Albumin/Globulin Ratio (1.0-2.8) Urine RBC 5-10/hpf H (0-5/HPF) Urine WBC 1-5/hpf (0-5/HPF) Ur Squamous Epith Cells 1-5 /hpf (0-5/HPF) Amorphous Sediment 1+ Urine Bacteria Occasional (0-1) (None) Ur Culture Indicated? Specimen cultured Ur Random Sodium 20 L (30-90) mmol/L Urine Creatinine 93.9 mg/dL SARS-CoV-2 (PCR) Negative (Negative) 12/29/21 Range/Units 16:08 WBC (4.5-11.0) X10^3/uL RBC (4.0-5.2) X10^6/uL Hgb (12.0-16.0) g/dL Hct (36-46) % MCV (80-100) fL MCH (26-34) PG MCHC (30-36) % RDW (11.6-14.8) % Plt Count (150-400) X10^3/uL Neut % (Auto) (50-75) % Lymph % (Auto) (25-40) % Archer % (Auto) (3-14) % Eos % (Auto) (2-4) % Baso % (Auto) (0-2) % Neut # (Auto) (1923-4866) /uL Lymph # (Auto) (8213-9496) /uL Archer # (Auto) (0-900) /uL Eos # (Auto) (0-450) /uL Baso # (Auto) (0-100) /uL Sodium 123 L (137-145) mmol/L Potassium 3.8 (3.4-5.1) mmol/L Chloride 93 L (98-107) mmol/L Carbon Dioxide 26 (22-32) mmol/L BUN 33 H (7-17) mg/dL Creatinine 2.32 H (0.52-1.04) mg/dL Estimated GFR 21.8 L (>60) mL/min BUN/Creatinine Ratio 14.2 (6-22) Glucose 122 H (70-100) mg/dL Lactate (0.7-2.1) mmol/L Calcium 8.2 L (8.4-10.2) mg/dL Total Bilirubin (0.2-1.3) mg/dL AST (14-36) IU/L ALT (<35) IU/L Alkaline Phosphatase (38-126) U/L Total Protein (6.3-8.2) g/dL Albumin (3.5-5.0) g/dL Globulin (1.7-4.1) g/dL Albumin/Globulin Ratio (1.0-2.8) Urine RBC (0-5/HPF) Urine WBC (0-5/HPF) Ur Squamous Epith Cells (0-5/HPF) Amorphous Sediment Urine Bacteria (None) Ur Culture Indicated? Ur Random Sodium (30-90) mmol/L Urine Creatinine mg/dL SARS-CoV-2 (PCR) (Negative) Point of care testing: Urine Dip Bedside Urine Glucose Negative Bedside Urine Bilirubin - Negative Bedside Urine Ketone - Negative Urine Specific [place] 1.015 Bedside Urine Occult Blood +++ Bedside Urine pH 6.0 Bedside Urine Protein - Negative Bedside Urine Urobilinogen - Negative Bedside Urine Leukocytes - Negative Esterase Imaging Data CT scan - abdomen/pelvis: Radiologist's Impression: [address] [address] [address] Scan Report Signed Patient: Libby Patel MR#: [id number] : 1965 Acct:[id number] Age/Sex: 56 / F Date of Service: 12/29/21 Loc: ED Accession Number: [id number] ?? Procedure: CT kidney ureter bladder (KUB) Ordering Provider: Keshawn Narayanan D.O. PROCEDURE:? CT KIDNEY URETER BLADDER (KUB) ? INDICATIONS:? severe abdominal pain, decreased BM, N/V, recent stent ? TECHNIQUE:? Axial sections were acquired from the lung bases to the pubic symphysis.? Coronal and sagittal reformats were performed.? For radiation dose reduction, the following was used: ?automated exposure control, adjustment of mA and/or kV according to patient size.? ? COMPARISON:? [facility], CT, CT CHEST ABD PEL W CON, 07/02/2021, 12:11.? [facility], CT, CT CHEST ABD PEL W CON, 12/04/2021, 10:20.? [facility], CR, XR ABDOMEN 1V, 12/28/2021, 9:49.? [facility], CR, XR ACUTE ABDOMEN SERIES, 12/29/2021, 13:40. ? FINDINGS:? Image quality:? Excellent.? ? Lung bases:? Unremarkable.? ? Heart:? No significant findings.? There is partial visualization of a central line. ? URINARY: Right Kidney:? A right-sided ureteral stent is seen.? Hyperdensity is seen within the right-sided collecting system, which is consistent with hemorrhage.? There is moderate to severe right-sided hydronephrosis. Right Ureter:? No significant hydroureter is seen. ? Left Kidney:? Moderate left-sided hydronephrosis is seen.? There is a tiny 1 mm nonobstructing stone seen inferiorly. Left Ureter:? Mild left-sided hydroureter is seen. ? Bladder:? Normal wall thickness. No stones. ? ? ? ABDOMEN: Liver:? Diffuse low-density liver metastases can be seen.? When compared to the recent prior CT dated 12/04/2021, the burden of liver metastases has progressed. Gallbladder:? Unremarkable.? ? Biliary ducts:? Unremarkable.? ? Pancreas:? Unremarkable.? ? Spleen:? Unremarkable.? ? Adrenal Glands:? Unremarkable.? ? ? Stomach and Bowel:? Prominent loops of fluid-filled small bowel are seen that measure up to 3.7 cm.? No transition point is seen.? A normal caliber appendix is seen.? An appendix clip is seen. The colon is largely decompressed. Peritoneum:? No abnormal intraperitoneal fluid.? No free air.? ? Ventral Wall: ? No hernia.? Abdominal Nodes:? Enlarged retroperitoneal lymph nodes are again seen.? No enlarged mesenteric lymph nodes are seen. Vessels:? Aorta and inferior vena cava are normal in size.? ? PELVIS: Pelvic Organs: This patient is status post hysterectomy. No adnexal masses are seen.? Pelvic Nodes:? Enlarged pelvic lymph nodes are seen, stable. Miscellaneous: No inguinal hernias are seen. ? ? ? Bones:? Unremarkable. ? IMPRESSION:? ? Interval progression of the patient's previously seen metastatic disease within the liver. ? Dilated loops of small bowel are seen.? Ileus is suspected, although small-bowel obstruction is possible. ? A right ureteral stent is seen in place.? High density urine is seen on the right, which is attributed to hemorrhage. ? Moderate left-sided hydro nephrosis and mild left-sided hydroureter can be seen.? A cause of obstruction is not seen. ? Stable enlarged retroperitoneal and pelvic lymph nodes are seen. ? ? ? Incidental note is made of: 1 mm nonobstructing left-sided kidney stone Normal appendix Hysterectomy ? ? Dictated by: Eliazar Diaz M.D. on 12/29/2021 at 13:59 ? ? Approved by: Eliazar Diaz M.D. on 12/29/2021 at 14:06 ? MDM Narrative Medical decision making narrative: Patient presents with multiple days of abdominal pain, decreased bowel movements but still passing gas. She has had significant nausea and vomiting and feels weak. Labs demonstrated sodium significantly lower than her baseline currently 122, patient appears dry with dry mucous membranes and poor skin turgor. Her FeNa is 0.4%. After 2 L of fluid she had minimal improvement in her sodium. Imaging would suggest an ileus but no obstruction. Right ureter continues to be patent with stent in place, however she now has left-sided hydroureteronephrosis. I have discussed with local hospitalist who is uncomfort able keeping the patient here due to the complexity of her overall picture and lack of access to urology and nephrology. Though she did have her stent placed here we do not have coverage locally until at least Friday. Critical Care Time Critical Care Time Critical Care Time: Yes Total Critical Care Time: 60 Attestation: The high probability of a clinically significant, sudden or life threatening deterioration of the [CV/] system(s) required my full and direct attention, intervention and personal management. The aggregate critical care time was [60] minutes. This time is in addition to time spent performing reported procedures but includes the following: [x] Data Review and interpretation [x] Patient assessment and monitoring of vital signs [x] Documentation [x] Medication orders and management Discharge Plan Departure Patient Disposition: [facility] Clinical Impression: Acute hyponatremia, Hydroureteronephrosis, Acute dehydration, Ileus Prescriptions: No Action loratadine [Claritin] 10 mg tablet 10 mg PO DAILY PRN (Reason: Allergic Symptoms) 0RF beclomethasone dipropionate 80 mcg/actuation Aerosol 80 mcg INHALATION DAILY 0RF thyroid (pork) [[facility] Thyroid] 60 mg Tablet 180 mg PO DAILY 0RF diphenhydramine HCl [Benadryl] 25 mg Capsule 25 mg PO BEDTIME PRN (Reason: Allergy Symptoms) 0RF naproxen sodium [Aleve] 220 mg Tablet 220 mg PO PRN PRN (Reason: Pain (Scale Score 4-6)) 0RF lysine 500 mg Tablet 1,000 mg PO DAILY 0RF Label Comments: taking super lysine.. with vitamin c,garlic,echinacea,propolis and licorice root elderberry fruit 200 mg Capsule 1,000 mg PO DAILY 0RF estradiol 1 mg Tablet 1 mg PO DAILY 0RF ondansetron HCl [Zofran] 4 mg Tablet 4 mg PO Q6H Qty: 30 2RF prochlorperazine maleate [Compazine] 10 mg Tablet 10 mg PO Q6H PRN (Reason: Nausea And Vomiting) Qty: 30 1RF lidocaine-prilocaine 2.5-2.5 % Cream 1 applic topical PRN PRN (Reason: Pain At Injection Site) Qty: 30 0RF Rx Instructions: Apply to the skin over the port at least 2 hours before planned use of the port. Cover the cream with a small piece of plastic wrap and leave it in place until port is accessed. cyclobenzaprine 5 mg Tablet 5 mg PO BEDTIME Qty: 20 0RF ondansetron 8 mg Tablet,Disintegrating 8 mg PO Q12H PRN (Reason: Nausea) Qty: 25 2RF lorazepam [Ativan] 0.5 mg Tablet See Rx Instructions .ROUTE .COMPLEX PRN (Reason: Nausea And Vomiting) Qty: 20 0RF Rx Instructions: 0.5 mg orally as needed EVERY 6 HOURS FOR NAUSEA oxycodone 5 mg Tablet 5 mg PO Q6H PRN (Reason: pain ) Qty: 30 0RF oxycodone 5 mg Capsule 5 mg PO Q6H PRN (Reason: Pain (Scale Score 1-3)) Qty: 60 0RF morphine [MS Contin] 15 mg Tablet Extended Release 15 mg PO Q8H Qty: 90 0RF Referrals: Jerman Machado MD [Primary Care Provider] -
--- NOTE | 2021-12-29 13:33 | DI.RAD.S_ITS ---
PROCEDURE: XR ACUTE ABDOMEN SERIES INDICATIONS: Abdominal pain, N/V, decreased BM TECHNIQUE: One view chest and two views of the abdomen were acquired. COMPARISON: [facility], CR, XR CHEST 1V, 08/06/2021, 9:32. FINDINGS: Surgical changes and devices: Right chest wall central venous port catheter. Chest: Lungs are clear. Heart size is normal. No pleural effusions. No pneumoperitoneum. Abdomen: Bowel gas pattern is normal. No suspicious calcifications. Visualized solid organ contours appear normal. Bones: No suspicious bony lesions. IMPRESSION: No acute cardiopulmonary process demonstrated radiographically. Dilated loops of intestine in the left upper quadrant. Dictated by: Dipak Lowe M.D. on 12/29/2021 at 14:22 Approved by: Dipak Lowe M.D. on 12/29/2021 at 14:23
[2021-12-29] MEDS: ONDANSETRON 4 MG/2 ML INJ IV (13:39)
[2021-12-29] MEDS: SODIUM CHLORIDE 0.9% 1,000 ML 1000 ML IV (13:39)
[2021-12-29 13:55] LABS: Add Manual Diff / Slide Review NO; Basophils Absolute Auto 0 /uL (0-100); Basophils Percent Auto 0.2 % (0-2); Eosinophils Absolute Auto 0 /uL (0-450); Eosinophils Percent Auto 0.2 % (2-4); Hematocrit 27.1 % (36-46); Hemoglobin 9.4 g/dL (12.0-16.0); Lymphocytes Absolute Auto 300 /uL (1100-4500); Lymphocytes Percent Auto 4.3 % (25-40); Mean Corpuscular HGB Conc 34.8 % (30-36); Mean Corpuscular Hemoglobin 31.4 PG (26-34); Mean Corpuscular Volume 90.2 fL (80-100); Monocytes Absolute Auto 800 /uL (0-900); Monocytes Percent Auto 11.4 % (3-14); Neutrophils Absolute Auto 5700 /uL (1500-7000); Neutrophils Percent Auto 83.9 % (50-75); Platelet Count 149 X10^3/uL (150-400); Red Cell Distribution Width 15.3 % (11.6-14.8); White Blood Cell Count 6.8 X10^3/uL (4.5-11.0)
[2021-12-29 14:07] LABS: Lactate (Lactic Acid) 1.5 mmol/L (0.7-2.1)
[2021-12-29 14:08] LABS: Alanine Aminotransferase 15 IU/L (<35); Albumin 3.5 g/dL (3.5-5.0); Alkaline Phosphatase 206 U/L (38-126); Aspartate Aminotransferase 47 IU/L (14-36); BUN Creatinine Ratio 13.8 (6-22); Bilirubin Total 0.6 mg/dL (0.2-1.3); Blood Urea Nitrogen 35 mg/dL (7-17); Calcium 9.1 mg/dL (8.4-10.2); Carbon Dioxide 27 mmol/L (22-32); Chloride 90 mmol/L (98-107); Estimated Glomerular Filt Rate 19.7 mL/min (>60); Globulin 3.4 g/dL (1.7-4.1); Glucose 125 mg/dL (70-100); HEMOLYSIS < 15 (0-50); Potassium 3.5 mmol/L (3.4-5.1); Sodium 122 mmol/L (137-145); Total Protein 6.9 g/dL (6.3-8.2)
[2021-12-29 14:13] LABS: Amorphous Sediment Urine 1+; Bacteria Urine Occasional (0-1); Culture Indicated Urine Specimen Cultured; RBC Urine 5-10/HPF (0-5/HPF); Squamous Epithelial Cell Urine 1-5 /HPF (0-5/HPF); WBC Urine 1-5/HPF (0-5/HPF)
--- NOTE | 2021-12-29 14:34 | DI.CT.S_ITS ---
PROCEDURE: CT KIDNEY URETER BLADDER (KUB) INDICATIONS: severe abdominal pain, decreased BM, N/V, recent stent TECHNIQUE: Axial sections were acquired from the lung bases to the pubic symphysis. Coronal and sagittal reformats were performed. For radiation dose reduction, the following was used: automated exposure control, adjustment of mA and/or kV according to patient size. COMPARISON: [facility], CT, CT CHEST ABD PEL W CON, 07/02/2021, 12:11. [facility], CT, CT CHEST ABD PEL W CON, 12/04/2021, 10:20. [facility], CR, XR ABDOMEN 1V, 12/28/2021, 9:49. [facility], CR, XR ACUTE ABDOMEN SERIES, 12/29/2021, 13:40. FINDINGS: Image quality: Excellent. Lung bases: Unremarkable. Heart: No significant findings. There is partial visualization of a central line. URINARY: Right Kidney: A right-sided ureteral stent is seen. Hyperdensity is seen within the right-sided collecting system, which is consistent with hemorrhage. There is moderate to severe right-sided hydronephrosis. Right Ureter: No significant hydroureter is seen. Left Kidney: Moderate left-sided hydronephrosis is seen. There is a tiny 1 mm nonobstructing stone seen inferiorly. Left Ureter: Mild left-sided hydroureter is seen. Bladder: Normal wall thickness. No stones. ABDOMEN: Liver: Diffuse low-density liver metastases can be seen. When compared to the recent prior CT dated 12/04/2021, the burden of liver metastases has progressed. Gallbladder: Unremarkable. Biliary ducts: Unremarkable. Pancreas: Unremarkable. Spleen: Unremarkable. Adrenal Glands: Unremarkable. Stomach and Bowel: Prominent loops of fluid-filled small bowel are seen that measure up to 3.7 cm. No transition point is seen. A normal caliber appendix is seen. An appendix clip is seen. The colon is largely decompressed. Peritoneum: No abnormal intraperitoneal fluid. No free air. Ventral Wall: No hernia. Abdominal Nodes: Enlarged retroperitoneal lymph nodes are again seen. No enlarged mesenteric lymph nodes are seen. Vessels: Aorta and inferior vena cava are normal in size. PELVIS: Pelvic Organs: This patient is status post hysterectomy. No adnexal masses are seen. Pelvic Nodes: Enlarged pelvic lymph nodes are seen, stable. Miscellaneous: No inguinal hernias are seen. Bones: Unremarkable. IMPRESSION: Interval progression of the patient's previously seen metastatic disease within the liver. Dilated loops of small bowel are seen. Ileus is suspected, although small-bowel obstruction is possible. A right ureteral stent is seen in place. High density urine is seen on the right, which is attributed to hemorrhage. Moderate left-sided hydro nephrosis and mild left-sided hydroureter can be seen. A cause of obstruction is not seen. Stable enlarged retroperitoneal and pelvic lymph nodes are seen. Incidental note is made of: 1 mm nonobstructing left-sided kidney stone Normal appendix Hysterectomy Dictated by: Eliazar Diaz M.D. on 12/29/2021 at 13:59 Approved by: Eliazar Diaz M.D. on 12/29/2021 at 14:06
[2021-12-29 15:21] LABS: COVID19 -Nasal RAPID Negative (Negative)
[2021-12-29] MEDS: HYDROMORPHONE 0.5 MG INJ IV ×2 (15:40→19:14)
[2021-12-29] MEDS: PANTOPRAZOLE 40 MG VIAL IV (15:40)
[2021-12-29 16:21] LABS: BUN Creatinine Ratio 14.2 (6-22); Blood Urea Nitrogen 33 mg/dL (7-17); Calcium 8.2 mg/dL (8.4-10.2); Carbon Dioxide 26 mmol/L (22-32); Chloride 93 mmol/L (98-107); Estimated Glomerular Filt Rate 21.8 mL/min (>60); Glucose 122 mg/dL (70-100); HEMOLYSIS 15 (0-50); Potassium 3.8 mmol/L (3.4-5.1); Sodium 123 mmol/L (137-145)
[2021-12-29 16:34] LABS: Creatinine Urine Random 93.9 mg/dL; Sodium Urine Random 20 mmol/L (30-90)
--- NOTE | 2021-12-29 18:07 | PC.NURSE ---
Asked by Dr. Narayanan to try an place patient at hospital with urology and nephrology specialist. I called [facility] at 17:50 and placed this patient on their potential patient transfer list. I called [facility] at 18:00 and placed this patient on their potential transfer list.
[2021-12-29] MEDS: ONDANSETRON 4 MG/2 ML INJ (19:24)
== END 2021-12-29 19:40 | disposition short-term general hospital (02) ==
PROVIDERS: Emergency Provider Emergency Medicine; PCP Family Medicine
DX: K56.7 Ileus, unspecified (principal); E87.1 Hypo-osmolality and hyponatremia; E86.0 Dehydration; N13.30 Unspecified hydronephrosis; Z20.822 Contact with and (suspected) exposure to COVID-19
CPT/HCPCS: 36415; 74022; 74176; 80048; 80053; 81003; 81015; 82570; 83605; 84300; 85025; 87086; 87635; 96361; 96374; 96375; 96376; 99284; 99291; C9803; C9113; J1170; J2405

== ENCOUNTER → 2022-01-21 12:44 | Outpatient (ROUT) | payer OTHER, SELFPAY ==
[2022-01-21 13:03] LABS: Add Manual Diff / Slide Review NO; Basophils Absolute Auto 0 /uL (0-100); Basophils Percent Auto 0.6 % (0-2); Eosinophils Absolute Auto 100 /uL (0-450); Eosinophils Percent Auto 2.1 % (2-4); Hematocrit 31.3 % (36-46); Hemoglobin 10.3 g/dL (12.0-16.0); Lymphocytes Absolute Auto 900 /uL (1100-4500); Lymphocytes Percent Auto 22.8 % (25-40); Mean Corpuscular Volume 94.1 fL (80-100); Monocytes Absolute Auto 300 /uL (0-900); Monocytes Percent Auto 8.4 % (3-14); Neutrophils Absolute Auto 2600 /uL (1500-7000); Neutrophils Percent Auto 66.1 % (50-75); Platelet Count 276 X10^3/uL (150-400); Red Blood Cell Count 3.32 X10^6/uL (4.0-5.2); Red Cell Distribution Width 17.2 % (11.6-14.8)
[2022-01-21 13:17] LABS: Alanine Aminotransferase 22 IU/L (<35); Albumin 3.8 g/dL (3.5-5.0); Albumin Globulin Ratio 1.4 (1.0-2.8); Alkaline Phosphatase 197 U/L (38-126); Aspartate Aminotransferase 52 IU/L (14-36); BUN Creatinine Ratio 13.1 (6-22); Bilirubin Total 0.6 mg/dL (0.2-1.3); Blood Urea Nitrogen 8 mg/dL (7-17); Calcium 9.3 mg/dL (8.4-10.2); Carbon Dioxide 28 mmol/L (22-32); Chloride 104 mmol/L (98-107); Estimated Glomerular Filt Rate > 60.0 mL/min (>60); Globulin 2.8 g/dL (1.7-4.1); Glucose 95 mg/dL (70-100); HEMOLYSIS < 15 (0-50); Potassium 3.8 mmol/L (3.4-5.1); Sodium 137 mmol/L (137-145); Total Protein 6.6 g/dL (6.3-8.2)
[2022-01-22 16:00] LABS: Cancer Antigen 125 371 U/mL (0-35)
== END ==
PROVIDERS: PCP Family Medicine; Visit Provider Family Medicine
DX: C56.9 Malignant neoplasm of unspecified ovary (principal)
CPT/HCPCS: 80053; 85025; 86304

== ENCOUNTER → 2022-02-04 15:42 | Outpatient (ROUT) | payer OTHER, SELFPAY ==
[2022-02-04 15:53] LABS: Hematocrit 31.4 % (36-46); Hemoglobin 10.5 g/dL (12.0-16.0); Mean Corpuscular HGB Conc 33.4 % (30-36); Mean Corpuscular Hemoglobin 31.3 PG (26-34); Mean Corpuscular Volume 93.7 fL (80-100); Platelet Count 198 X10^3/uL (150-400); Red Blood Cell Count 3.35 X10^6/uL (4.0-5.2); Red Cell Distribution Width 18.1 % (11.6-14.8)
[2022-02-04 15:56] LABS: White Blood Cell Count 1.3 X10^3/uL (4.5-11.0)
[2022-02-04 16:09] LABS: Alanine Aminotransferase 19 IU/L (<35); Albumin 3.6 g/dL (3.5-5.0); Albumin Globulin Ratio 1.3 (1.0-2.8); Alkaline Phosphatase 206 U/L (38-126); Aspartate Aminotransferase 39 IU/L (14-36); BUN Creatinine Ratio 15.3 (6-22); Bilirubin Total 0.5 mg/dL (0.2-1.3); Blood Urea Nitrogen 9 mg/dL (7-17); Calcium 9.1 mg/dL (8.4-10.2); Carbon Dioxide 28 mmol/L (22-32); Chloride 104 mmol/L (98-107); Estimated Glomerular Filt Rate > 60 mL/min (>60); Globulin 2.8 g/dL (1.7-4.1); Glucose 128 mg/dL (70-100); HEMOLYSIS < 15 (0-50); Potassium 3.5 mmol/L (3.4-5.1); Sodium 138 mmol/L (137-145); Total Protein 6.4 g/dL (6.3-8.2)
== END ==
PROVIDERS: PCP Family Medicine; Visit Provider Family Medicine
DX: C56.9 Malignant neoplasm of unspecified ovary (principal)
CPT/HCPCS: 80053; 85027

== ENCOUNTER → 2022-02-16 09:43 | Outpatient (CLI) | payer OTHER, SELFPAY ==
[2022-02-16 10:43] LABS: Appearance Urine UA SL CLOUDY; Bilirubin Urine UA NEGATIVE (NEGATIVE); Color Urine UA YELLOW; Glucose Urine UA NEGATIVE (Negative); Ketones Urine UA NEGATIVE (NEGATIVE); Leukocyte Esterase Urine UA 1+ (NEGATIVE); Nitrite Urine UA POSITIVE (Negative); Occult Blood Urine UA 3+ (Negative); Protein Urine UA 2+ (Negative); Specific Gravity Urine UA 1.015 (1.000-1.035); Urobilinogen Urine UA 0.2 E.U./dL (0.2); pH Urine UA 6.5 (4.5-8.0)
[2022-02-16 10:44] LABS: RBC Urine 1-5/HPF (0-5/HPF); WBC Urine 5-10/HPF (0-5/HPF)
[2022-02-16 10:45] LABS: Bacteria Urine Few (2-10); Culture Indicated Urine Specimen Cultured
== END ==
PROVIDERS: PCP Family Medicine; Referring Provider Specialist; Visit Provider Specialist
DX: R30.0 Dysuria (principal)
CPT/HCPCS: 81001; 87077; 87086; 87186

== ENCOUNTER → 2022-02-27 14:31 | Outpatient (CLI) | payer OTHER, SELFPAY ==
--- NOTE | 2022-02-27 | DI.CT.S_ITS ---
PROCEDURE: CT CHEST ABD PEL W CON INDICATIONS: Malignant neoplasm of unspecified ovary TECHNIQUE: After the administration of oral and intravenous contrast, axial sections acquired from the supraclavicular neck to the pubic symphysis. Coronal and sagittal reformats were performed. For radiation dose reduction, the following was used: automated exposure control, adjustment of mA and/or kV according to patient size. COMPARISON:[facility], CT, CT CHEST ABD PEL W CON, 12/04/2021, 10:20. [facility], CT, CT KIDNEY URETER BLADDER (KUB), 12/29/2021, 14:51. FINDINGS: Image quality: Excellent. CHEST: Lower Neck: No enlarged lymph nodes. Thyroid: Within normal limits. Axillae: No enlarged lymph nodes. Chest Wall: Unremarkable. Lungs and Airways: No consolidation or suspicious nodules. Pleura: No pneumothorax or pleural effusions. Heart: Heart size is normal. No pericardial effusion. Thoracic Vessels: The aorta and pulmonary arteries demonstrate normal size. Mediastinum and [place]: No enlarged lymph nodes. Esophagus: No wall thickening. No hiatal hernia. ABDOMEN: Liver: Innumerable focal and confluent hepatic masses are again identified. Alter act comparison compared to 12/29/2021 is slightly limited secondary to lack of IV contrast, overall there does appear to be interval progression both size and number. The left hepatic lesion on series 2, image 58 measures 3.5 x 2.9 cm compared to 3.0 x 2.5 cm and may confluent focus in the posterior right lateral lobe on series 2, image 65 measures 3.0 cm AP x 4.5 cm transverse compared to 2.4 cm AP x 4.4 cm transverse. Gallbladder: Unremarkable. Biliary ducts: Unremarkable. Pancreas: Unremarkable. Spleen: Unremarkable. Adrenal Glands: Unremarkable. Kidneys and Ureters: There is been interval placement of a left ureterovesicular stent. Mild left hydronephrosis is present, decreased compared to prior exam. There is marked atrophy of the right kidney without obstruction. It is noted that the ureterovesicular stent is noted within the proximal left ureter slightly inferior compared to prior exam. Stomach and Bowel: Stomach, small bowel loops, and colon are unremarkable. Peritoneum: No abnormal intraperitoneal fluid. No free air. Ventral Wall: No hernia. Abdominal Nodes: Extensive retroperitoneal adenopathy is present. Overall however, it has decreased compared to prior exam. The aortic caval node seen on series 2, image 86 measures 2.3 x 3.7 cm compared to 3.8 x 5.0 cm. Vessels: Aorta and inferior vena cava are normal in size. PELVIS: Pelvic Organs: Hysterectomy changes are present. As identified on previous exams, solid and cystic foci are noted within the pelvis predominantly along the side willson. They have also decreased in size with the left pelvic sidewall mass measuring 5.5 x 3.4 cm compared to 6.7 x 4.2 cm. Bladder: Unremarkable. Miscellaneous: No inguinal hernias are seen. Bones: Unchanged lucency within the posterior left iliac bone on series 2, image 99. Areas of punctate lucency remain present within multiple vertebral bodies predominantly within the lumbar spine. IMPRESSION: 1. Multiple hepatic lesions consistent with metastatic disease demonstrating small interval increase in size and number. 2. Extensive retroperitoneal adenopathy, slightly improved. 3. Bilateral ureterovesicular stents with slight inferior migration on the right as above. Mild left hydronephrosis. Dictated by: Zohra Dillard M.D. on 02/27/2022 at 16:27 Approved by: Zohra Dillard M.D. on 02/27/2022 at 16:41
== END ==
PROVIDERS: PCP Family Medicine; Referring Provider Specialist; Visit Provider Specialist
DX: C56.9 Malignant neoplasm of unspecified ovary (principal); R59.0 Localized enlarged lymph nodes; K76.9 Liver disease, unspecified; N13.30 Unspecified hydronephrosis; Z96.0 Presence of urogenital implants; Z90.710 Acquired absence of both cervix and uterus
CPT/HCPCS: 71260; 74177; Q9967

== ENCOUNTER → 2022-03-01 11:27 | Outpatient (CLI) | payer OTHER, SELFPAY | PROVIDERS: PCP Family Medicine; Referring Provider Specialist; Visit Provider Specialist | DX: R30.0 Dysuria (principal) | CPT/HCPCS: 87086 ==

== ENCOUNTER 2022-03-09 12:57 | Emergency (ER) | payer OTHER, SELFPAY ==
[2022-03-09] VITALS (13 sets, daily range): BP systolic 104–122; BP diastolic 54–65; PULSE 68–112; RESP 17–18; TEMP 35.9; O2SAT 95–100; BMI 19.9
[2022-03-09 13:43] LABS: Add Manual Diff / Slide Review NO; Basophils Absolute Auto 100 /uL (0-100); Basophils Percent Auto 0.7 % (0-2); Eosinophils Absolute Auto 300 /uL (0-450); Eosinophils Percent Auto 3.5 % (2-4); Hematocrit 35.2 % (36-46); Hemoglobin 12.2 g/dL (12.0-16.0); Lymphocytes Absolute Auto 800 /uL (1100-4500); Lymphocytes Percent Auto 10.1 % (25-40); Mean Corpuscular HGB Conc 34.7 % (30-36); Mean Corpuscular Hemoglobin 31.5 PG (26-34); Mean Corpuscular Volume 90.8 fL (80-100); Monocytes Absolute Auto 500 /uL (0-900); Monocytes Percent Auto 5.7 % (3-14); Neutrophils Absolute Auto 6400 /uL (1500-7000); Platelet Count 357 X10^3/uL (150-400); Red Blood Cell Count 3.88 X10^6/uL (4.0-5.2); Red Cell Distribution Width 16.9 % (11.6-14.8)
[2022-03-09 13:50] LABS: Alanine Aminotransferase 18 IU/L (<35); Albumin Globulin Ratio 1.2 (1.0-2.8); Alkaline Phosphatase 185 U/L (38-126); Aspartate Aminotransferase 72 IU/L (14-36); BUN Creatinine Ratio 22.2 (6-22); Bilirubin Total 0.5 mg/dL (0.2-1.3); Blood Urea Nitrogen 14 mg/dL (7-17); Calcium 9.5 mg/dL (8.4-10.2); Carbon Dioxide 24 mmol/L (22-32); Chloride 102 mmol/L (98-107); Estimated Glomerular Filt Rate > 60 mL/min (>60); Globulin 3.3 g/dL (1.7-4.1); Glucose 117 mg/dL (70-100); HEMOLYSIS < 15 (0-50); Lipase 57 U/L (23-300); Sodium 132 mmol/L (137-145); Total Protein 7.3 g/dL (6.3-8.2)
[2022-03-09] MEDS: KETOROLAC 30 MG/ML VIAL 15 MG IV (14:23)
--- NOTE | 2022-03-09 14:36 | ED.ABDPAIN ---
HPI - Abdominal Pain <Shawnee Whatley, - Last Filed: 03/11/22 18:36> General Chief Complaint: Abdominal Pain Stated Complaint: sob has stent in rt kidney lt side intense pain Time Seen by Provider: 03/09/22 14:35 Source: patient Mode of arrival: Ambulatory Limitations: no limitations History of Present Illness HPI narrative: This is a 56-year-old female with known ovarian cancer and recent ureteral stent placement on the right which actually slipped out and was removed, patient still has a left ureteral stent in place. Patient presents with increased left flank and abdominal pain in the last 12 hours. Patient states symptoms feel similar to when she had blockage before. One stent was placed here locally by our urologist Dr. Pack the other was placed at [facility] in [place]. Patient completed her most recent cancer treatment 3 weeks ago, she is supposed to be seen to stay initiate a trial treatment. She states that some of the lymph nodes decreased in size and they think that is why the right ureteral stent had slipped out. She has had no fevers but some chills. Some nausea but no active vomiting. She has had decreased stool output but has been having gas regularly. She had bowel movement yesterday. Patient denies any hematuria, frequency this had some mild dysuria and suprapubic fullness. Patient denies any chest pain or shortness of breath. She is on lisinopril for hypertension and oxybutynin for bladder spasm. She has had a prior lower abdominal surgery for removal of ovarian mass. Her cancer care is through [facility]. Her primary care is Dr. Machado. Her local urologist is Dr. Pack. She has also seen Urology in [place]. She is accompanied by her today. Related Data Home Medications Medication Instructions Recorded Confirmed beclomethasone dipropionate 80 80 mcg INHALATION DAILY 10/30/20 03/04/22 mcg/actuation aerosol inhaler thyroid (pork) 60 mg tablet 180 mg PO DAILY 10/30/20 03/04/22 ([place] Thyroid) diphenhydramine HCl 25 mg capsule 25 mg PO BEDTIME PRN 11/15/20 03/04/22 (Benadryl) elderberry fruit 200 mg capsule 1,000 mg PO DAILY 11/15/20 03/04/22 estradiol 1 mg tablet 1 mg PO DAILY 11/15/20 03/04/22 lysine 500 mg tablet 1,000 mg PO DAILY 11/15/20 03/04/22 naproxen sodium 220 mg tablet 220 mg PO PRN PRN 11/15/20 03/04/22 (Aleve) loratadine 10 mg tablet (Claritin) 10 mg PO DAILY PRN 08/06/21 03/04/22 Previous Rx's Medication Instructions Recorded lidocaine-prilocaine 2.5 %-2.5 % 1 applic TOPICAL PRN PRN #30 g 08/15/21 topical cream ondansetron HCl 4 mg tablet 4 mg PO Q6H #30 tab 08/15/21 (Zofran) prochlorperazine maleate 10 mg 10 mg PO Q6H PRN #30 tab 08/15/21 tablet (Compazine) cyclobenzaprine 5 mg tablet 5 mg PO BEDTIME #20 tab 08/22/21 lorazepam 0.5 mg tablet (Ativan) See Rx Instructions .ROUTE 11/07/21 .COMPLEX PRN #20 tab ondansetron 8 mg disintegrating 8 mg PO Q12H PRN #25 tab 11/07/21 tablet oxycodone 5 mg tablet 5 mg PO Q6H PRN #30 tab 11/07/21 oxycodone 5 mg capsule 5 mg PO Q6H PRN #60 cap 12/25/21 ciprofloxacin HCl 250 mg tablet 250 mg PO BID #14 tab 02/21/22 oxybutynin chloride 10 mg 10 mg PO DAILY #90 tab 03/04/22 tablet,extended release 24 hr (Ditropan XL) oxycodone 5 mg tablet 5 mg PO Q8H PRN #14 tab 03/09/22 sulfamethoxazole 800 1 tab PO Q12H 3 Days #6 tab 03/09/22 mg-trimethoprim 160 mg tablet (Bactrim DS) Allergies Allergy/AdvReac Type Severity Reaction Status Date / Time No Known Drug Allergies Allergy Verified 03/04/22 14:36 Review of Systems <Shawnee Whatley DO - Last Filed: 03/11/22 18:36> Review of Systems ROS Unobtainable: All systems reviewed & are unremarkable except as noted in HPI and below Patient History <Shawnee Whatley DO - Last Filed: 03/11/22 18:36> Medical History Acute kidney injury Asthma Endometrioid adenocarcinoma of right ovary Hydronephrosis of right kidney Obstruction of right ureter Surgical History History of exploratory laparotomy (~07/20/20) History of surgery History of surgery S/P ELIAZAR-BSO Family History Mother Cancer Hypertension Father Hypertension Social History marital status: household members: spouse Smoking Status: Never smoker alcohol intake: current Smoking Status: Never smoker alcohol intake frequency: a few times a month Substance Use Type: opiates Exam <Shawnee Whatley DO - Last Filed: 03/11/22 18:36> Narrative Exam Narrative: GENERAL: Alert and oriented x three, thin female in moderate distress. HEENT: Head normocephalic, atraumatic, EOMI, pupils reactive, face symmetric, moist mucous membranes NECK: Supple, full range of motion CARDIOVASCULAR: Regular rate and rhythm without murmurs, rubs or gallops. RESPIRATORY: Breath sounds equal bilaterally, no wheezes rales or rhonchi. ABDOMEN: Soft, patient has mild left upper lower quadrant tenderness. Nondistended. Decreased but present Bowel sounds all 4 quadrants. No guarding or rebound, rigidity, no mass : No CVA tenderness EXTREMITIES: Normal range of motion, no clubbing or edema. Neurovascularly intact NEUROLOGICAL: Cranial nerves II through XII grossly intact. Moving all extremities SKIN: Warm, dry, no petechiae, no rashes or lesions. Initial Vital Signs Initial Vital Signs: Vital Signs Temperature 96.7 F L 03/09/22 13:10 Pulse Rate 112 H 03/09/22 13:10 Respiratory Rate 17 03/09/22 13:10 Blood Pressure 111/65 03/09/22 13:10 Pulse Oximetry 98 03/09/22 13:10 <Romero Lowry DO - Last Filed: 03/10/22 00:03> Initial Vital Signs Initial Vital Signs: Vital Signs Temperature 96.7 F L 03/09/22 13:10 Pulse Rate 112 H 03/09/22 13:10 Respiratory Rate 17 03/09/22 13:10 Blood Pressure 111/65 03/09/22 13:10 Pulse Oximetry 98 03/09/22 13:10 Course <Shawnee Whatley, - Last Filed: 03/11/22 18:36> Orders Ordered: Discontinued Medications Hydromorphone HCl (Hydromorphone 1 Mg Inj) 1 mg IV NOW ONE Stop: 03/09/22 14:51 Last Admin: 03/09/22 15:04 Dose: 1 mg Documented by: POORNIMA Hydromorphone HCl (Hydromorphone 1 Mg Inj) 1 mg IV NOW ONE Stop: 03/09/22 18:42 Last Admin: 03/09/22 18:44 Dose: 1 mg Documented by: VANNA Hydromorphone HCl (Hydromorphone 1 Mg Inj) 1 mg IV NOW ONE Stop: 03/09/22 20:42 Last Admin: 03/09/22 20:43 Dose: Not Given Documented by: ALEJANDRINA Hydromorphone HCl (Hydromorphone 1 Mg Inj) 1 mg IV NOW ONE Stop: 03/09/22 23:55 Last Admin: 03/10/22 00:00 Dose: 1 mg Documented by: ALEJANDRINA Sodium Chloride (Normal Saline 0.9%) 1,000 mls @ 1,000 mls/hr IV BOLUS ONE Stop: 03/09/22 15:49 Last Infusion: 03/09/22 16:36 Dose: 1,000 mls/hr Documented by: Admin: 03/09/22 15:05 Dose: 1,000 mls/hr Documented by: POORNIMA Ceftriaxone Sodium 1,000 mg/ (Sodium Chloride) 100 mls @ 200 mls/hr IV NOW ONE Stop: 03/09/22 18:19 Last Infusion: 03/09/22 19:09 Dose: 0 mls/hr Documented by: Admin: 03/09/22 18:32 Dose: 200 mls/hr Documented by: GREGORIA Ketorolac Tromethamine (Ketorolac 30 Mg/Ml Vial) 15 mg IV NOW ONE Stop: 03/09/22 14:17 Last Admin: 03/09/22 14:23 Dose: 15 mg Documented by: PARVEZ Ondansetron HCl (Ondansetron 4 Mg/2 Ml Inj) 4 mg IV NOW ONE Stop: 03/09/22 14:51 Last Admin: 03/09/22 15:04 Dose: 4 mg Documented by: POORNIMA Reevaluation(s) Reevaluation #1: Patient's pain was improved. CT scanner has become unavailable and is now in down time unexpectedly. Discussed with patient will get KUB x-ray, discussed can try ultrasound but would not give the same detail and CT much more appropriate. Patient is agreeable to being transferred to other facility for CT and returned which is the typical protocol. All questions answered. Vital Signs Vital signs: Vital Signs - 8 hr 03/09/22 16:29 03/09/22 16:30 03/09/22 17:00 Pulse Rate 74 75 68 Respiratory Rate Blood Pressure 104/57 L Pulse Oximetry 100 100 98 03/09/22 17:39 03/09/22 17:40 03/09/22 18:00 Pulse Rate 78 75 79 Respiratory Rate Blood Pressure 114/58 L 107/54 L Pulse Oximetry 97 99 99 03/09/22 18:30 03/09/22 19:00 03/09/22 19:30 Pulse Rate 83 81 72 Respiratory Rate 18 Blood Pressure 119/62 115/58 L 114/62 Pulse Oximetry 98 96 95 03/09/22 23:09 03/09/22 23:10 Pulse Rate 78 83 Respiratory Rate Blood Pressure 122/62 Pulse Oximetry 96 96 <Romero Lowry DO - Last Filed: 03/10/22 00:03> Orders Ordered: Discontinued Medications Hydromorphone HCl (Hydromorphone 1 Mg Inj) 1 mg IV NOW ONE Stop: 03/09/22 14:51 Last Admin: 03/09/22 15:04 Dose: 1 mg Documented by: POORNIMA Hydromorphone HCl (Hydromorphone 1 Mg Inj) 1 mg IV NOW ONE Stop: 03/09/22 18:42 Last Admin: 03/09/22 18:44 Dose: 1 mg Documented by: VANNA Hydromorphone HCl (Hydromorphone 1 Mg Inj) 1 mg IV NOW ONE Stop: 03/09/22 20:42 Last Admin: 03/09/22 20:43 Dose: Not Given Documented by: ALEJANDRINA Hydromorphone HCl (Hydromorphone 1 Mg Inj) 1 mg IV NOW ONE Stop: 03/09/22 23:55 Last Admin: 03/10/22 00:00 Dose: 1 mg Documented by: ALEJANDRINA Sodium Chloride (Normal Saline 0.9%) 1,000 mls @ 1,000 mls/hr IV BOLUS ONE Stop: 03/09/22 15:49 Last Infusion: 03/09/22 16:36 Dose: 1,000 mls/hr Documented by: Admin: 03/09/22 15:05 Dose: 1,000 mls/hr Documented by: POORNIMA Ceftriaxone Sodium 1,000 mg/ (Sodium Chloride) 100 mls @ 200 mls/hr IV NOW ONE Stop: 03/09/22 18:19 Last Infusion: 03/09/22 19:09 Dose: 0 mls/hr Documented by: Admin: 03/09/22 18:32 Dose: 200 mls/hr Documented by: GREGORIA Ketorolac Tromethamine (Ketorolac 30 Mg/Ml Vial) 15 mg IV NOW ONE Stop: 03/09/22 14:17 Last Admin: 03/09/22 14:23 Dose: 15 mg Documented by: PARVEZ Ondansetron HCl (Ondansetron 4 Mg/2 Ml Inj) 4 mg IV NOW ONE Stop: 03/09/22 14:51 Last Admin: 03/09/22 15:04 Dose: 4 mg Documented by: POORNIMA Vital Signs Vital signs: Vital Signs - 8 hr 03/09/22 16:29 03/09/22 16:30 03/09/22 17:00 Pulse Rate 74 75 68 Respiratory Rate Blood Pressure 104/57 L Pulse Oximetry 100 100 98 03/09/22 17:39 03/09/22 17:40 03/09/22 18:00 Pulse Rate 78 75 79 Respiratory Rate Blood Pressure 114/58 L 107/54 L Pulse Oximetry 97 99 99 03/09/22 18:30 03/09/22 19:00 03/09/22 19:30 Pulse Rate 83 81 72 Respiratory Rate 18 Blood Pressure 119/62 115/58 L 114/62 Pulse Oximetry 98 96 95 03/09/22 23:09 03/09/22 23:10 Pulse Rate 78 83 Respiratory Rate Blood Pressure 122/62 Pulse Oximetry 96 96 MDM - Abdominal Pain <Shawnee Whatley, DO - Last Filed: 03/11/22 18:36> Lab Data Result diagrams: 03/09/22 13:30 03/09/22 13:30 Labs: Lab Results 03/09/22 03/09/22 03/09/22 Range/Units 13:30 13:30 17:20 WBC 8.0 (4.5-11.0) X10^3/uL RBC 3.88 L (4.0-5.2) X10^6/uL Hgb 12.2 (12.0-16.0) g/dL Hct 35.2 L (36-46) % MCV 90.8 (80-100) fL MCH 31.5 (26-34) PG MCHC 34.7 (30-36) % RDW 16.9 H (11.6-14.8) % Plt Count 357 (150-400) X10^3/uL Neut % (Auto) 80.0 H (50-75) % Lymph % (Auto) 10.1 L (25-40) % Jack % (Auto) 5.7 (3-14) % Eos % (Auto) 3.5 (2-4) % Baso % (Auto) 0.7 (0-2) % Neut # (Auto) 6400 (4861-0493) /uL Lymph # (Auto) 800 L (2290-2678) /uL Jack # (Auto) 500 (0-900) /uL Eos # (Auto) 300 (0-450) /uL Baso # (Auto) 100 (0-100) /uL Sodium 132 L (137-145) mmol/L Potassium 4.0 (3.4-5.1) mmol/L Chloride 102 (98-107) mmol/L Carbon Dioxide 24 (22-32) mmol/L BUN 14 (7-17) mg/dL Creatinine 0.63 (0.52-1.04) mg/dL Estimated GFR > 60 (>60) mL/min BUN/Creatinine Ratio 22.2 H (6-22) Glucose 117 H (70-100) mg/dL Calcium 9.5 (8.4-10.2) mg/dL Total Bilirubin 0.5 (0.2-1.3) mg/dL AST 72 H (14-36) IU/L ALT 18 (<35) IU/L Alkaline Phosphatase 185 H (38-126) U/L Total Protein 7.3 (6.3-8.2) g/dL Albumin 4.0 (3.5-5.0) g/dL Globulin 3.3 (1.7-4.1) g/dL Albumin/Globulin Ratio 1.2 (1.0-2.8) Lipase 57 (23-300) U/L Urine RBC 5-10/hpf H (0-5/HPF) Urine WBC 5-10/hpf H (0-5/HPF) Urine Bacteria Occasional (0-1) (None) Ur Culture Indicated? Culture not indicate SARS-CoV-2 (PCR) (Negative) 03/09/22 Range/Units 18:40 WBC (4.5-11.0) X10^3/uL RBC (4.0-5.2) X10^6/uL Hgb (12.0-16.0) g/dL Hct (36-46) % MCV (80-100) fL MCH (26-34) PG MCHC (30-36) % RDW (11.6-14.8) % Plt Count (150-400) X10^3/uL Neut % (Auto) (50-75) % Lymph % (Auto) (25-40) % Jack % (Auto) (3-14) % Eos % (Auto) (2-4) % Baso % (Auto) (0-2) % Neut # (Auto) (8016-3835) /uL Lymph # (Auto) (5238-3037) /uL Jack # (Auto) (0-900) /uL Eos # (Auto) (0-450) /uL Baso # (Auto) (0-100) /uL Sodium (137-145) mmol/L Potassium (3.4-5.1) mmol/L Chloride (98-107) mmol/L Carbon Dioxide (22-32) mmol/L BUN (7-17) mg/dL Creatinine (0.52-1.04) mg/dL Estimated GFR (>60) mL/min BUN/Creatinine Ratio (6-22) Glucose (70-100) mg/dL Calcium (8.4-10.2) mg/dL Total Bilirubin (0.2-1.3) mg/dL AST (14-36) IU/L ALT (<35) IU/L Alkaline Phosphatase (38-126) U/L Total Protein (6.3-8.2) g/dL Albumin (3.5-5.0) g/dL Globulin (1.7-4.1) g/dL Albumin/Globulin Ratio (1.0-2.8) Lipase (23-300) U/L Urine RBC (0-5/HPF) Urine WBC (0-5/HPF) Urine Bacteria (None) Ur Culture Indicated? SARS-CoV-2 (PCR) Negative (Negative) Point of care testing: Point of Care Testing Test Results Not applicable Urine Dip Bedside Urine Glucose Negative Bedside Urine Bilirubin - Negative Bedside Urine Ketone - Negative Urine Specific [place] 1.01 Bedside Urine Occult Blood +++ Bedside Urine pH 6.0 Bedside Urine Protein - Negative Bedside Urine Urobilinogen - Negative Bedside Urine Nitrite - Negative Bedside Urine Leukocytes +/- 15 Esterase Imaging Data Abdominal x-ray: Radiologist's Impression: Launch?[place] [address] XRay Report Signed Patient: Libby Patel MR#: [id number] : 1965 Acct:[id number] Age/Sex: 56 / F Date of Service: 03/09/22 Loc: ED Accession Number: [id number] ?? Procedure: XR KUB Ordering Provider: Shawnee Whatley D.O. PROCEDURE:? XR KUB ? INDICATIONS:? left flank/abd pain, ureteral stent on L ? TECHNIQUE:? One view of the abdomen acquired.? ? COMPARISON:? [facility], CT, CT CHEST ABD PEL W CON, 02/27/2022, 15:30.? [facility], CT, CT KIDNEY URETER BLADDER (KUB), 12/29/2021, 14:51.? [facility], CR, XR ACUTE ABDOMEN SERIES, 12/29/2021, 13:40. ? FINDINGS:? ? Surgical changes and devices:? There is a left-sided double-J stent, with the ends of the stent seen in the expected locations. ? Bowel:? Bowel gas pattern is normal.? ? Soft tissues:? No suspicious abdominal calcifications.? Visualized solid organ contours appear normal in size.? ? Bones:? No suspicious bony lesions.? Age-appropriate bony degenerative changes are seen. ? ? IMPRESSION:? ? Unremarkable left-sided double-J stent. ? The previously seen right-sided stent is no longer seen.? ? Dictated by: Eilazar Diaz M.D. on 03/09/2022 at 16:02 ? ? Approved by: Eliazar Diaz M.D. on 03/09/2022 at 16:03?? MDM Narrative Medical decision making narrative: 56-year-old female comes in with increased abdominal flank pain with known ureteral stent on the left. Patient has known ovarian cancer with masses. Renal function appears appropriate. No other major lab abnormalities. Obtaining urine and CT imaging to evaluate for placement of ureter, possible obstruction or other changes. Patient's KUB shows stent in place. CT became unavailable. So plan for should been return as per protocol. Patient has 5-10 wbc's, 5-10 RBCs, occasional bacteria with leuks. Patient is non-tender on exam on her left flank. <Romero Lowry, DO - Last Filed: 03/10/22 00:03> Lab Data Labs: Lab Results 03/09/22 03/09/22 03/09/22 Range/Units 13:30 13:30 17:20 WBC 8.0 (4.5-11.0) X10^3/uL RBC 3.88 L (4.0-5.2) X10^6/uL Hgb 12.2 (12.0-16.0) g/dL Hct 35.2 L (36-46) % MCV 90.8 (80-100) fL MCH 31.5 (26-34) PG MCHC 34.7 (30-36) % RDW 16.9 H (11.6-14.8) % Plt Count 357 (150-400) X10^3/uL Neut % (Auto) 80.0 H (50-75) % Lymph % (Auto) 10.1 L (25-40) % Jack % (Auto) 5.7 (3-14) % Eos % (Auto) 3.5 (2-4) % Baso % (Auto) 0.7 (0-2) % Neut # (Auto) 6400 (1141-0814) /uL Lymph # (Auto) 800 L (0434-6315) /uL Jack # (Auto) 500 (0-900) /uL Eos # (Auto) 300 (0-450) /uL Baso # (Auto) 100 (0-100) /uL Sodium 132 L (137-145) mmol/L Potassium 4.0 (3.4-5.1) mmol/L Chloride 102 (98-107) mmol/L Carbon Dioxide 24 (22-32) mmol/L BUN 14 (7-17) mg/dL Creatinine 0.63 (0.52-1.04) mg/dL Estimated GFR > 60 (>60) mL/min BUN/Creatinine Ratio 22.2 H (6-22) Glucose 117 H (70-100) mg/dL Calcium 9.5 (8.4-10.2) mg/dL Total Bilirubin 0.5 (0.2-1.3) mg/dL AST 72 H (14-36) IU/L ALT 18 (<35) IU/L Alkaline Phosphatase 185 H (38-126) U/L Total Protein 7.3 (6.3-8.2) g/dL Albumin 4.0 (3.5-5.0) g/dL Globulin 3.3 (1.7-4.1) g/dL Albumin/Globulin Ratio 1.2 (1.0-2.8) Lipase 57 (23-300) U/L Urine RBC 5-10/hpf H (0-5/HPF) Urine WBC 5-10/hpf H (0-5/HPF) Urine Bacteria Occasional (0-1) (None) Ur Culture Indicated? Culture not indicate SARS-CoV-2 (PCR) (Negative) 03/09/22 Range/Units 18:40 WBC (4.5-11.0) X10^3/uL RBC (4.0-5.2) X10^6/uL Hgb (12.0-16.0) g/dL Hct (36-46) % MCV (80-100) fL MCH (26-34) PG MCHC (30-36) % RDW (11.6-14.8) % Plt Count (150-400) X10^3/uL Neut % (Auto) (50-75) % Lymph % (Auto) (25-40) % Jack % (Auto) (3-14) % Eos % (Auto) (2-4) % Baso % (Auto) (0-2) % Neut # (Auto) (3652-4481) /uL Lymph # (Auto) (9890-7098) /uL Jack # (Auto) (0-900) /uL Eos # (Auto) (0-450) /uL Baso # (Auto) (0-100) /uL Sodium (137-145) mmol/L Potassium (3.4-5.1) mmol/L Chloride (98-107) mmol/L Carbon Dioxide (22-32) mmol/L BUN (7-17) mg/dL Creatinine (0.52-1.04) mg/dL Estimated GFR (>60) mL/min BUN/Creatinine Ratio (6-22) Glucose (70-100) mg/dL Calcium (8.4-10.2) mg/dL Total Bilirubin (0.2-1.3) mg/dL AST (14-36) IU/L ALT (<35) IU/L Alkaline Phosphatase (38-126) U/L Total Protein (6.3-8.2) g/dL Albumin (3.5-5.0) g/dL Globulin (1.7-4.1) g/dL Albumin/Globulin Ratio (1.0-2.8) Lipase (23-300) U/L Urine RBC (0-5/HPF) Urine WBC (0-5/HPF) Urine Bacteria (None) Ur Culture Indicated? SARS-CoV-2 (PCR) Negative (Negative) Point of care testing: Point of Care Testing Test Results Not applicable Urine Dip Bedside Urine Glucose Negative Bedside Urine Bilirubin - Negative Bedside Urine Ketone - Negative Urine Specific [place] 1.01 Bedside Urine Occult Blood +++ Bedside Urine pH 6.0 Bedside Urine Protein - Negative Bedside Urine Urobilinogen - Negative Bedside Urine Nitrite - Negative Bedside Urine Leukocytes +/- [address] scan - abdomen/pelvis: Radiologist's Impression: Extent of multi focal hepatic metastatic disease is again seen with reference to the recent comparison CT of 02/27/2022. A number these metastatic lesions have slightly enlarged in size over the short period of time. This is associated with a new finding of left upper quadrant subdiaphragmatic ascites. The low right pelvic lymph nodes are relatively poorly defined by this study, but likely have mildly enlarged as etiology for increasing right hydronephrosis. Left-sided double pigtail ureteral catheter drainage of the left urinary tract remains successful. No a bowel obstruction found MDM Narrative Medical decision making narrative: 56-year-old female comes in with increased abdominal flank pain with known ureteral stent on the left. Patient has known ovarian cancer with masses. Renal function appears appropriate. No other major lab abnormalities. Obtaining urine and CT imaging to evaluate for placement of ureter, possible obstruction or other changes. Patient's KUB shows stent in place. CT became unavailable. So plan for should been return as per protocol. Patient has 5-10 wbc's, 5-10 RBCs, occasional bacteria with leuks. Patient is non-tender on exam on her left flank. Dr lowry: Received turned over. Reviewed patient's history and physical and labs. Performed my own independent evaluation. Patient was successfully transferred to [facility] in returned secondary to the CT scanner at this facility being inoperable. The CT scan shows that the left-sided ureteral stent is functioning an in place. The metastatic disease is known. She does have left upper quadrant ascites which very well could be the cause of her discomfort. Given the presence of the stent and the bacteria and the white blood cells in her urine she was treated with Rocephin for a presumed urinary tract infection. She is nontoxic appearing and I have lower suspicion that this is pyelonephritis however will discharge home with antibiotics for urinary tract infection. I discussed CT scan findings with the patient and her at bedside. I will refill her pain medication. She was given return precautions and follow-up instructions. She expressed understanding and agreement. Discharge Plan Departure Patient Disposition: Home Clinical Impression: Abdominal pain Instructions: DI for Abdominal Pain-Adult Activity Restrictions/Additional Instructions: I do recommend that you take all of your medications as directed. Keep all of your scheduled medical appointments. Take the antibiotics as directed. Return to the emergency department for any new or worsening symptoms. Prescriptions: New sulfamethoxazole-trimethoprim [Bactrim DS] 800-160 mg tablet 1 tab PO Q12H 3 Days Qty: 6 0RF oxycodone 5 mg tablet 5 mg PO Q8H PRN (Reason: pain) Qty: 14 0RF No Action ciprofloxacin HCl 250 mg tablet 250 mg PO BID Qty: 14 0RF loratadine [Claritin] 10 mg tablet 10 mg PO DAILY PRN (Reason: Allergic Symptoms) 0RF beclomethasone dipropionate 80 mcg/actuation Aerosol 80 mcg INHALATION DAILY 0RF thyroid (pork) [[place] Thyroid] 60 mg Tablet 180 mg PO DAILY 0RF diphenhydramine HCl [Benadryl] 25 mg Capsule 25 mg PO BEDTIME PRN (Reason: Allergy Symptoms) 0RF naproxen sodium [Aleve] 220 mg Tablet 220 mg PO PRN PRN (Reason: Pain (Scale Score 4-6)) 0RF lysine 500 mg Tablet 1,000 mg PO DAILY 0RF Label Comments: taking super lysine.. with vitamin c,garlic,echinacea,propolis and licorice root elderberry fruit 200 mg Capsule 1,000 mg PO DAILY 0RF estradiol 1 mg Tablet 1 mg PO DAILY 0RF ondansetron HCl [Zofran] 4 mg Tablet 4 mg PO Q6H Qty: 30 2RF prochlorperazine maleate [Compazine] 10 mg Tablet 10 mg PO Q6H PRN (Reason: Nausea And Vomiting) Qty: 30 1RF lidocaine-prilocaine 2.5-2.5 % Cream 1 applic topical PRN PRN (Reason: Pain At Injection Site) Qty: 30 0RF Rx Instructions: Apply to the skin over the port at least 2 hours before planned use of the port. Cover the cream with a small piece of plastic wrap and leave it in place until port is accessed. cyclobenzaprine 5 mg Tablet 5 mg PO BEDTIME Qty: 20 0RF ondansetron 8 mg Tablet,Disintegrating 8 mg PO Q12H PRN (Reason: Nausea) Qty: 25 2RF lorazepam [Ativan] 0.5 mg Tablet See Rx Instructions .ROUTE .COMPLEX PRN (Reason: Nausea And Vomiting) Qty: 20 0RF Rx Instructions: 0.5 mg orally as needed EVERY 6 HOURS FOR NAUSEA oxycodone 5 mg Tablet 5 mg PO Q6H PRN (Reason: pain ) Qty: 30 0RF oxycodone 5 mg Capsule 5 mg PO Q6H PRN (Reason: Pain (Scale Score 1-3)) Qty: 60 0RF oxybutynin chloride [Ditropan XL] 10 mg tablet extended release 24 hr 10 mg PO DAILY Qty: 90 0RF Referrals: Jerman Machado MD [Primary Care Provider] -
[2022-03-09] MEDS: HYDROMORPHONE 1 MG INJ IV ×2 (15:04→18:44)
[2022-03-09] MEDS: ONDANSETRON 4 MG/2 ML INJ IV (15:04)
[2022-03-09] MEDS: SODIUM CHLORIDE 0.9% 1,000 ML 1000 ML IV (15:05)
--- NOTE | 2022-03-09 16:45 | DI.RAD.S_ITS ---
PROCEDURE: XR KUB INDICATIONS: left flank/abd pain, ureteral stent on L TECHNIQUE: One view of the abdomen acquired. COMPARISON: [facility], CT, CT CHEST ABD PEL W CON, 02/27/2022, 15:30. [facility], CT, CT KIDNEY URETER BLADDER (KUB), 12/29/2021, 14:51. [facility], CR, XR ACUTE ABDOMEN SERIES, 12/29/2021, 13:40. FINDINGS: Surgical changes and devices: There is a left-sided double-J stent, with the ends of the stent seen in the expected locations. Bowel: Bowel gas pattern is normal. Soft tissues: No suspicious abdominal calcifications. Visualized solid organ contours appear normal in size. Bones: No suspicious bony lesions. Age-appropriate bony degenerative changes are seen. IMPRESSION: Unremarkable left-sided double-J stent. The previously seen right-sided stent is no longer seen. Dictated by: Eliazar Diaz M.D. on 03/09/2022 at 16:02 Approved by: Eliazar Diaz M.D. on 03/09/2022 at 16:03
[2022-03-09 18:15] LABS: Bacteria Urine Occasional (0-1); RBC Urine 5-10/HPF (0-5/HPF); WBC Urine 5-10/HPF (0-5/HPF)
[2022-03-09] MEDS: cefTRIAXone 1,000 MG in SODIUM CHLORIDE 0.9% 100 ML 200 MG IV (18:32)
[2022-03-09 19:02] LABS: COVID19 -Nasal RAPID Negative (Negative)
[2022-03-09] MEDS: HYDROMORPHONE 0.5 MG INJ 1 MG (20:40)
--- NOTE | 2022-03-09 20:43 | PC.NURSE ---
EMS here report given, pain med given to pt for trip and pt transported for CT
--- NOTE | 2022-03-09 23:17 | PC.NURSE ---
returned from getting CT, pt aao x 3, notified per request
[2022-03-10] VITALS: PULSE 84; O2SAT 96
[2022-03-10] MEDS: HYDROMORPHONE 1 MG INJ IV
== END 2022-03-10 00:10 | disposition home or self-care (01) ==
PROVIDERS: Emergency Medicine; Emergency Provider Emergency Medicine; PCP Family Medicine
DX: R10.9 Unspecified abdominal pain (principal); R06.02 Shortness of breath; R30.0 Dysuria; Z20.822 Contact with and (suspected) exposure to COVID-19; Z96.89 Presence of other specified functional implants
CPT/HCPCS: 36415; 74018; 80053; 81003; 81015; 81025; 83690; 85025; 87086; 87635; 93005; 96361; 96365; 96375; 96376; 99284; C9803; J0696; J1170; J1885; J2405

== ENCOUNTER → 2022-03-14 15:40 | Outpatient (CLI) | payer OTHER, SELFPAY ==
[2022-03-14 16:34] LABS: COVID19 -Nasal RAPID Negative (Negative)
== END ==
PROVIDERS: PCP Family Medicine; Visit Provider Specialist
DX: Z20.822 Contact with and (suspected) exposure to COVID-19 (principal)
CPT/HCPCS: 87635; C9803

== ENCOUNTER 2022-03-15 09:30 | Day surgery (SDC) | payer OTHER, SELFPAY ==
[2022-03-15] VITALS (10 sets, daily range): BP systolic 105–130; BP diastolic 59–80; PULSE 82–92; RESP 12–16; TEMP 36.6–37.1; O2SAT 91–98; BMI 19.9
--- NOTE | 2022-03-15 | DI.RAD.S_ITS ---
PROCEDURE: XR ABDOMEN 1V INDICATIONS: BILATERAL STENT PLACEMENT TECHNIQUE: Multiple intra procedural spot fluoroscopic images of the abdomen. COMPARISON: [facility], CT, CT ABDOMEN PELVIS WITH CONTRAST, 03/09/2022, 22:19. [facility], CR, XR KUB, 03/09/2022, 16:35. [facility], CR, XR ABDOMEN 1V, 12/28/2021, 9:49. FINDINGS: Multiple spot fluoroscopic images demonstrate bilateral ureteral stents. A left proximal ureteral stent projects over the expected location of the left kidney. Right-sided ureteral catheter projects over the superior pole of the right renal collecting system. Injected contrast material opacifies the dilated right renal pelvis and calices. IMPRESSION: Fluoroscopic guidance utilized for bilateral ureteral stent placement. Dictated by: Derrek Manning M.D. on 03/15/2022 at 14:54 Approved by: Derrek Manning M.D. on 03/15/2022 at 14:57
--- NOTE | 2022-03-15 10:51 | PM.PREOP ---
Pre-operative Note COVID-19 Result date/Date tested (Pos, Neg/Pending): 03/14/22 Criteria for continued procedure: Expected advancement of disease process, Increased loss of function, Continuing or worsening of significant or severe pain, Deterioration of the patient's condition or overall health, Delay expected to result in less-positive ultimate med/surg outcome and Non-surgical alternatives not available or appropriate per current SOC Interval Note History & Physical reviewed/Exam performed by Physician: Yes Changes to H&P: Yes H&P completed within 30 days and has changed as indicated here:: 56-year-old female with metastatic ovarian cancer known history of bilateral ureteral obstruction presents today for urgent replacement of right ureteral stent. She is status post removal of metallic right ureteral stent as outpatient on 03/06/2022 due to distal migration of the stent. CT imaging study showed interval complete resolution of right hydronephrosis at that time. Over the last 2-3 days she has developed increasing right flank pain indicating likelihood of residual/persistent ureteral obstruction. She is a well-developed mildly cachectic middle-aged female no acute distress. Head/neck-sclera clear and pupils are round and equal. No visible evidence of adenopathy or JVD. Chest-equal and unlabored expansion bilaterally. Port site intact. Heart-normal sinus rhythm. Impression: 1. History of bilateral ureteral obstruction. 2. Indwelling left ureteral stent. Time is nearing for indicated left ureteral stent exchange. 3. Severe right renal colic. Plan: 1. Discussion, informed consent for CYSTOSCOPY/PLACEMENT RIGHT URETERAL STENT/LEFT URETERAL STENT EXCHANGE.
[2022-03-15] MEDS: CEFAZOLIN 2 GM/20 ML SYRINGE IV (11:12)
[2022-03-15] MEDS: LACTATED RINGERS 1,000 ML 42 ML IV (11:48)
[2022-03-15] MEDS: IOPAMIDOL 50 ML VIAL INJ (11:50)
--- NOTE | 2022-03-15 11:57 | SUR.OPER ---
Lithotomy on padded OR bed, head on pillow, arms secured on padded arm boards at <90 degrees abduction. Legs secured in padded yellow fins stirrups.
[2022-03-15] MEDS: BELLADONNA/OPIUM SUPPOSITORIES 1 EACH PR (12:03)
--- NOTE | 2022-03-15 12:06 | PM.OP.1 ---
Operative Date/Time/Diagnoses Date of procedure: 03/15/22 Time of procedure: 12:06 Pre-op diagnosis: 1. History of bilateral ureteral obstruction. 2. Retained left ureteral stent. 3. Right renal colic. Post-op diagnosis: same Procedure & Clinicians Procedure: 1. Cystoscopy/placement right ureteral stent (7 Lebanese by 22-32 cm length). 2. Cystoscopy/left ureteral stent exchange (7 Lebanese by 22-32 cm length). Same procedure as scheduled: Yes Indications: 1. History of bilateral ureteral obstruction. 2. Retained left ureteral stent. 3. Right renal colic. Surgeon: Sandy Pack Anesthesia Type: General Operative Notes Findings: Normal appearing urethra without obstruction or lesion. Bladder had trace trabeculation, otherwise unremarkable other than mild bolus edema and erythema at left ureteral orifice secondary to indwelling left ureteral stent. Closure Type: not applicable Specimen(s): none sent Applied: other (Bilateral 7 Lebanese by 22-32 cm multi-length stent.) Estimated Blood Loss (mL): 0 Blood products transfused: none Procedure in detail: The patient was positioned supine was administered general anesthesia. She was then repositioned semi lithotomy and the lower abdomen, genitalia, and groin were then prepped and draped in sterile fashion. The 22 Lebanese panendoscope was then passed Jessica tract with the findings as described above. A 0.35 hybrid guidewire was then advanced through the working channel the scope and advanced into the right collecting system under direct and fluoroscopic guidance. Next, a 5 Lebanese open-ended catheter was advanced over this hybrid guidewire proximally under fluoroscopic guidance. Hybrid guidewire is then backloaded out of the 5 Lebanese open-ended catheter. A retrograde pyelogram was then performed demonstrating satisfactory positioning of the tip of the open-ended catheter in the superior pole mild to moderately dilated collecting system of the right kidney. The hybrid guidewire was then advanced through the open catheter under direct and fluoroscopic guidance the open-end catheter was then backloaded off the hybrid guidewire. Now a 7 Lebanese by 22-32 cm multi-length stent was selected and this was advanced over the hybrid guidewire under direct and fluoroscopic guidance and was positioned satisfactorily in the right collecting system. NO RETRIEVAL LINE WAS LEFT ATTACHED. Next, foreign body grasper was advanced through the working channel of the panendoscope and the retained left ureteral stent was engaged at its distal extent, was engaged, and then was brought out past the urethra in the area of the perineum. A 0.35 hybrid guidewire was then advanced through the lumen of the retain left ureteral stent and advanced proximally under fluoroscopic guidance. The retained stent was backloaded off the wire and discarded. Now the wire was front loaded into the panendoscope. A 7 Lebanese by 22-32 cm multi-length stent was then advanced over the hybrid guidewire under direct and fluoroscopic guidance. NO RETRIEVAL LINE WAS LEFT ATTACHED. The bladder is then drained completely, all instrumentation was removed, the patient was then repositioned in supine, was awakened, transferred to a gurney and transferred to PACU in stable condition. Complications: none Post-operative Condition: stable Disposition: PACU Plan for aftercare: Discharge home.
[2022-03-15] MEDS: ONDANSETRON 4 MG/2 ML INJ IV (13:19)
== END 2022-03-15 13:35 | disposition home or self-care (01) ==
PROVIDERS: PCP Family Medicine; Referring Provider Specialist; Visit Provider Specialist
PROC: (CPT 52332; principal; 2022-03-15 10:15)
DX: N13.5 Crossing vessel and stricture of ureter without hydronephrosis (principal); Z46.6 Encounter for fitting and adjustment of urinary device
CPT/HCPCS: 52332; 74018; 76000; J0690; J1100; J2405; J2704; J3010

== ENCOUNTER → 2022-03-20 11:55 | Outpatient (ROUT) | payer OTHER, SELFPAY ==
[2022-03-20 12:01] LABS: Add Manual Diff / Slide Review NO; Basophils Absolute Auto 0 /uL (0-100); Basophils Percent Auto 0.5 % (0-2); Eosinophils Absolute Auto 500 /uL (0-450); Eosinophils Percent Auto 6.7 % (2-4); Hematocrit 36.1 % (36-46); Lymphocytes Absolute Auto 700 /uL (1100-4500); Lymphocytes Percent Auto 8.8 % (25-40); Mean Corpuscular HGB Conc 33.3 % (30-36); Mean Corpuscular Hemoglobin 30.8 PG (26-34); Mean Corpuscular Volume 92.6 fL (80-100); Monocytes Absolute Auto 400 /uL (0-900); Monocytes Percent Auto 4.9 % (3-14); Neutrophils Absolute Auto 6300 /uL (1500-7000); Neutrophils Percent Auto 79.1 % (50-75); Platelet Count 382 X10^3/uL (150-400); Red Blood Cell Count 3.89 X10^6/uL (4.0-5.2); Red Cell Distribution Width 16.8 % (11.6-14.8); White Blood Cell Count 7.9 X10^3/uL (4.5-11.0)
[2022-03-20 12:18] LABS: Alanine Aminotransferase 26 IU/L (<35); Albumin 3.7 g/dL (3.5-5.0); Albumin Globulin Ratio 1.2 (1.0-2.8); Alkaline Phosphatase 289 U/L (38-126); Aspartate Aminotransferase 121 IU/L (14-36); BUN Creatinine Ratio 22.5 (6-22); Bilirubin Total 0.8 mg/dL (0.2-1.3); Blood Urea Nitrogen 16 mg/dL (7-17); Calcium 9.2 mg/dL (8.4-10.2); Carbon Dioxide 29 mmol/L (22-32); Chloride 93 mmol/L (98-107); Estimated Glomerular Filt Rate > 60 mL/min (>60); Glucose 121 mg/dL (70-100); HEMOLYSIS < 15 (0-50); Sodium 129 mmol/L (137-145); Total Protein 6.7 g/dL (6.3-8.2)
[2022-03-20 12:19] LABS: Creatinine Urine Random 83.4 mg/dL; Protein (Total) Urine Random 33 mg/dL (0-12); Protein Creatinine Ratio Urine 0.39 GRAM/24H
== END ==
PROVIDERS: PCP Family Medicine; Visit Provider Physician Assistant Medical
DX: C56.9 Malignant neoplasm of unspecified ovary (principal)
CPT/HCPCS: 80053; 82570; 84156; 85025

== ENCOUNTER → 2022-03-25 13:50 | Outpatient (ROUT) | payer OTHER, SELFPAY ==
[2022-03-25 14:26] LABS: Alanine Aminotransferase 28 IU/L (<35); Albumin 3.6 g/dL (3.5-5.0); Albumin Globulin Ratio 1.2 (1.0-2.8); Alkaline Phosphatase 423 U/L (38-126); Aspartate Aminotransferase 135 IU/L (14-36); BUN Creatinine Ratio 15.9 (6-22); Bilirubin Total 0.8 mg/dL (0.2-1.3); Blood Urea Nitrogen 11 mg/dL (7-17); Calcium 9.2 mg/dL (8.4-10.2); Carbon Dioxide 31 mmol/L (22-32); Chloride 93 mmol/L (98-107); Estimated Glomerular Filt Rate > 60 mL/min (>60); Glucose 93 mg/dL (70-100); HEMOLYSIS < 15 (0-50); Potassium 5.1 mmol/L (3.4-5.1); Sodium 128 mmol/L (137-145); Total Protein 6.6 g/dL (6.3-8.2)
== END ==
PROVIDERS: PCP Family Medicine; Visit Provider Specialist
DX: C56.9 Malignant neoplasm of unspecified ovary (principal); R79.89 Other specified abnormal findings of blood chemistry
CPT/HCPCS: 80053

== ENCOUNTER → 2022-05-06 12:31 | Outpatient (ROUT) | payer OTHER, SELFPAY ==
[2022-05-06 12:46] LABS: Add Manual Diff / Slide Review NO; Basophils Absolute Auto 100 /uL (0-100); Basophils Percent Auto 0.9 % (0-2); Eosinophils Absolute Auto 0 /uL (0-450); Eosinophils Percent Auto 0.6 % (2-4); Hematocrit 28.1 % (36-46); Hemoglobin 9.4 g/dL (12.0-16.0); Lymphocytes Absolute Auto 1100 /uL (1100-4500); Lymphocytes Percent Auto 18.6 % (25-40); Mean Corpuscular HGB Conc 33.6 % (30-36); Mean Corpuscular Hemoglobin 30.4 PG (26-34); Mean Corpuscular Volume 90.5 fL (80-100); Monocytes Absolute Auto 300 /uL (0-900); Monocytes Percent Auto 4.3 % (3-14); Neutrophils Absolute Auto 4500 /uL (1500-7000); Neutrophils Percent Auto 75.6 % (50-75); Platelet Count 150 X10^3/uL (150-400); Red Blood Cell Count 3.11 X10^6/uL (4.0-5.2); Red Cell Distribution Width 19.9 % (11.6-14.8)
[2022-05-06 12:50] LABS: Alanine Aminotransferase 51 IU/L (<35); Albumin Globulin Ratio 1.1 (1.0-2.8); Alkaline Phosphatase 1382 U/L (38-126); Aspartate Aminotransferase 262 IU/L (14-36); BUN Creatinine Ratio 27.8 (6-22); Bilirubin Total 1.2 mg/dL (0.2-1.3); Blood Urea Nitrogen 15 mg/dL (7-17); Calcium 8.7 mg/dL (8.4-10.2); Carbon Dioxide 27 mmol/L (22-32); Chloride 91 mmol/L (98-107); Estimated Glomerular Filt Rate > 60 mL/min (>60); Globulin 2.7 g/dL (1.7-4.1); Glucose 77 mg/dL (70-100); HEMOLYSIS < 15 (0-50); Potassium 4.7 mmol/L (3.4-5.1); Sodium 128 mmol/L (137-145); Total Protein 5.7 g/dL (6.3-8.2)
== END ==
PROVIDERS: Visit Provider Specialist
DX: C56.9 Malignant neoplasm of unspecified ovary (principal); Z51.11 Encounter for antineoplastic chemotherapy
CPT/HCPCS: 80053; 85025

== ENCOUNTER → 2022-05-07 14:13 | Outpatient (CLI) | payer OTHER, SELFPAY ==
--- NOTE | 2022-05-07 | DI.US.S_ITS ---
PROCEDURE: US PERIPH VENOUS LOW EXTREM RT INDICATIONS: LOCALIZED EDEMA TECHNIQUE: Real-time imaging, as well as color and pulse Doppler interrogation, were performed of the lower extremity deep veins from the inguinal ligament to the popliteal fossa. COMPARISON: None. FINDINGS: The common femoral, femoral and popliteal veins are normally compressible, and free of intraluminal thrombus. Color and pulse Doppler demonstrate normal phasic intraluminal flow. There is normal augmentation response to distal compression maneuver. IMPRESSION: No DVT in the right lower extremity. Dictated by: Pancho Piper M.D. on 05/07/2022 at 14:43 Approved by: Pancho Piper M.D. on 05/07/2022 at 14:44
== END ==
PROVIDERS: PCP Family Medicine; Referring Provider Family Medicine; Visit Provider Family Medicine
DX: R60.0 Localized edema (principal)
CPT/HCPCS: 93971

== ENCOUNTER 2022-05-12 15:20 | Inpatient (IN) | payer OTHER, SELFPAY ==
[2022-05-12] VITALS (17 sets, daily range): BP systolic 98–134; BP diastolic 56–74; PULSE 80–109; RESP 5–37; TEMP 36.6–37; O2SAT 90–98; BMI 20.1; BMI 20.9
--- NOTE | 2022-05-12 16:04 | ED.WEAKNESS ---
HPI - Weakness <Love Barker DO - Last Filed: 05/13/22 07:32> General Chief complaint: Weakness Stated complaint: Weak, Fell X 3. Stage 4 CA PT Time Seen by Provider: 05/12/22 15:55 Source: patient Mode of arrival: Ambulatory History of Present Illness HPI Narrative: Patient is a 56-year-old female history of metastatic ovarian clamp care he received her last round of chemotherapy and is currently on palliative care 5 days ago. She was recently admitted to [facility] for pain control where her morphine and pain medications were adjusted. She has been on her new regimen for about 1 week. She found out that her female partner from 5 days ago tested positive for COVID. states that she has not been eating but has continued to drink lot of water. Yesterday she was able to walk around [facility] however today she has fallen 3 times. She has some involuntary twitching of her legs. She fell last night and cut her chin which has closed. Related Data Home Medications Medication Instructions Recorded Confirmed gabapentin 300 mg capsule 300 mg PO TID 05/12/22 05/12/22 oxycodone 30 mg tablet,crush 30 mg PO Q8HR 05/12/22 05/12/22 resistant,extended release 12 hr (OxyContin) oxycodone 5 mg tablet 5 mg PO Q4H PRN Pain (Scale Score 05/12/22 05/12/22 7-10) Previous Rx's Medication Instructions Recorded ondansetron 8 mg disintegrating 8 mg PO Q12H PRN Nausea #25 tabs 11/07/21 tablet Allergies Allergy/AdvReac Type Severity Reaction Status Date / Time No Known Drug Allergies Allergy Verified 05/12/22 15:25 Review of Systems <Love Barker DO - Last Filed: 05/13/22 07:32> Review of Systems Narrative: GENERAL: Denies chills, fatigue, malaise, fever, sweats, travel HEENT: Denies sinus pain, ear pain, sore throat, difficulty swallowing, neck pain RESPIRATORY: Denies dyspnea, cough, wheezing, hemoptysis, sputum. CARDIOVASCULAR: Denies chest pain, palpitations, orthopnea, edema GASTROINTESTINAL: Denies nausea, vomiting, abdominal pain, diarrhea, constipation, melena. : Denies dysuria, frequency, incontinence, hematuria, urinary retention, flank pain. MUSCULOSKELETAL: Denies weakness, joint pain, or bony pain SKIN: No rash, no erythema, no pruritus NEUROLOGIC: +see HPI PSYCHIATRIC: No concerning psychosocial issues. 12 point review of systems is negative except for those stated above and HPI Patient History <Love Barker DO - Last Filed: 05/13/22 07:32> Medical History Acute kidney injury Asthma Endometrioid adenocarcinoma of right ovary Hydronephrosis of right kidney Obstruction of right ureter Surgical History History of exploratory laparotomy (~07/20/20) History of surgery History of surgery S/P ELIAZAR-BSO Family History Mother Cancer Hypertension Father Hypertension Social History marital status: household members: spouse Smoking Status: Never smoker alcohol intake: never Smoking Status: Never smoker alcohol intake frequency: a few times a month Substance Use Type: does not use and opiates Exam <Love Barker DO - Last Filed: 05/13/22 07:32> Initial Vital Signs Initial Vital Signs: Vital Signs Pulse Rate 102 H 05/12/22 15:25 Respiratory Rate 10 L 05/12/22 15:25 Blood Pressure 110/70 05/12/22 15:25 Pulse Oximetry 95 05/12/22 15:25 Oxygen Delivery Method 05/12/22 15:25 GENERAL: Drowsy but arousable HEENT: Head atraumatic,EOMI, pupils reactive, face symmetric, [moist] mucous membranes CARDIOVASCULAR: Regular rate and rhythm without murmurs, rubs or gallops. RESPIRATORY: Breath sounds equal bilaterally, no wheezes rales or rhonchi. ABDOMEN: Soft, nontender. Normoactive bowel sounds all 4 quadrants. No guarding or rebound. EXTREMITIES: Normal range of motion, no clubbing or edema. Neurovascularly intact NEUROLOGICAL: Drowsy voluntary leg twitching SKIN: Warm, dry, no laceration, no petechiae, no rashes or lesions. <Rajat Cohn MD - Last Filed: 05/13/22 06:46> Initial Vital Signs Initial Vital Signs: Vital Signs Pulse Rate 102 H 05/12/22 15:25 Respiratory Rate 10 L 05/12/22 15:25 Blood Pressure 110/70 05/12/22 15:25 Pulse Oximetry 95 05/12/22 15:25 Oxygen Delivery Method 05/12/22 15:25 Course <Love Barker DO - Last Filed: 05/13/22 07:32> Orders Ordered: Acetaminophen (Acetaminophen 325 Mg Tablet) 650 mg PO Q6HR PRN PRN Reason: Fever/Mild Pain (1-3) Hydromorphone HCl (Hydromorphone 4 Mg Tablet) 4 mg PO Q6H PRN PRN Reason: Pain (Scale Score 4-6) Hydromorphone HCl (Hydromorphone 1 Mg Inj) 1 mg IV Q3H PRN PRN Reason: Pain, Moderate (4-6) Vancomycin HCl (Vancomycin) 750 mg in 150 mls @ 100 mls/hr IV Q24H [facility] Piperacillin Sod/Tazobactam (Sod 3.375 gm/ Sodium Chloride) 100 mls @ 25 mls/hr IV Q8H [facility] Last Admin: 05/13/22 00:50 Dose: 25 mls/hr Documented By: ALLIE Dextrose (D10w) 250 mls @ 999 mls/hr IV PRN PRN PRN Reason: Hypoglycemia Last Admin: 05/13/22 06:22 Dose: 999 mls/hr Documented By: REKHA Dextrose/Sodium Chloride (Dextrose 5%-0.9% Ns) 1,000 mls @ 150 mls/hr IV CONT [facility] Lorazepam (Lorazepam 0.5 Mg Tablet) 0.5 mg PO QID PRN PRN Reason: Nausea Ondansetron HCl (Ondansetron 4 Mg/2 Ml Inj) 4 mg IV Q8HR PRN PRN Reason: Nausea And Vomiting Oxybutynin Chloride (Oxybutynin 5 Mg Er Tab) 10 mg PO DAILY [facility] Vancomycin HCl (Vancomycin Per Pharmacy) 1 request MISC NOW ONE Stop: 05/12/22 21:08 Discontinued Medications Albuterol (Albuterol 2.5 Mg/3 Ml Neb (Adult)) 10 mg INH NOW ONE Stop: 05/12/22 16:49 Last Admin: 05/12/22 17:12 Dose: 10 mg Documented By: THOMAS Dextrose (Dextrose 50 % In Water 25 Gm/50 Ml Syringe) 25 gm IV NOW ONE Stop: 05/12/22 16:50 Last Admin: 05/12/22 17:22 Dose: 25 gm Documented By: MLM Furosemide (Furosemide 40 Mg/4 Ml Vial) 20 mg IV NOW ONE Stop: 05/12/22 16:49 Last Admin: 05/12/22 17:23 Dose: 20 mg Documented By: MLM Sodium Chloride (Normal Saline 0.9%) 1,000 mls @ 1,000 mls/hr IV BOLUS ONE Stop: 05/12/22 17:09 Last Admin: 05/12/22 17:35 Dose: Not Given Documented By: MLM Lactated Ringer's (Lactated Ringers) 1,700.97 mls @ 566.99 mls/hr 30 ml/kg infuse over 3 hr (1700.97 ml) IV NOW ONE Stop: 05/12/22 19:47 Last Infusion: 05/12/22 20:38 Dose: 0 mls/hr Documented By: Admin: 05/12/22 17:35 Dose: 566.99 mls/hr Documented By: MLM Piperacillin Sod/Tazobactam (Sod 4.5 gm/ Sodium Chloride) 100 mls @ 200 mls/hr IV NOW ONE Stop: 05/12/22 16:54 Last Infusion: 05/12/22 18:50 Dose: 0 mls/hr Documented By: Admin: 05/12/22 17:55 Dose: 200 mls/hr Documented By: MLM Vancomycin HCl (Vancomycin) 1,000 mg in 200 mls @ 200 mls/hr IV NOW ONE Stop: 05/12/22 17:52 Last Infusion: 05/12/22 19:57 Dose: 0 mls/hr Documented By: Admin: 05/12/22 18:50 Dose: 200 mls/hr Documented By: MLM Piperacillin Sod/Tazobactam (Sod 4.5 gm/ Sodium Chloride) 100 mls @ 25 mls/hr IV Q8H [facility] Sodium Chloride (Normal Saline 0.9%) 1,000 mls @ 150 mls/hr IV CONT [facility] Last Admin: 05/12/22 21:40 Dose: 150 mls/hr Documented By: TLS Sodium Chloride (Normal Saline 0.9%) 1,000 mls @ 1,000 mls/hr IV BOLUS ONE Stop: 05/12/22 23:02 Last Admin: 05/12/22 22:12 Dose: 1,000 mls/hr Documented By: MOUSTAPHA Insulin Human Regular (Insulin Regular 100 Unit/Ml 3 Ml Vial) 5 unit IV NOW ONE Stop: 05/12/22 16:50 Last Admin: 05/12/22 17:26 Dose: 5 unit Documented By: MLAdriana Co-signed By: PEÑA Vital Signs Vital signs: Vital Signs - 8 hr 05/12/22 18:00 05/12/22 18:15 05/12/22 18:15 Pulse Rate 106 H 105 H Respiratory Rate 26 H 27 H Blood Pressure 115/66 Pulse Oximetry 97 05/12/22 18:31 05/12/22 18:31 Pulse Rate 109 H Respiratory Rate 22 Blood Pressure 119/74 Pulse Oximetry 90 L <Rajat Cohn MD - Last Filed: 05/13/22 06:46> Course Course Narrative: May 12, 2002 at 9:27 p.m. Spoke with radiologist regarding repeat CT scan abdomen pelvis findings. The proximal portion of the right stent/pigtail is not in the UPJ. Is in the proximal ureter. No comparison for this. Left stent is in place and appears functional. Patient may need Interventional Radiology verses Dr. Pack to re-evaluate the right stent. I did speak with Dr. Calvin of the findings as well and he will relay this to the morning shift team and have Dr. Pack consult. TonightDr. Pack is not on-call. A different group is on-call. [facility] neurology is containers sales representative. Patient has been sent out. At 9:31 p.m. Lalit KIRKPATRICK 9:45 p.m. spoke with [facility] urology, Dr. Damon had ordered, at this time she does recommend percutaneous drainage and not replacement of the stent. She is trying to call formerly [facility] for transfer however she states beds are not available with their system. She also understands there are no beds available in surrounding hospitals for us as well. At this time we can only keep patient here. Interventional radiology would be available tomorrow morning. Patient can get sick very quickly overnight. She is on antibiotics. At this time vital signs are stable. 10:[address] Bush call back. At this time there are no beds available with [facility]. The EMS transport system is very delayed and short of help. Next transport would be available at 4:[address] [facility]. That does not involve EMS transfer at this location. However given time frame and lack of beds she states patient would be best served to be admitted here as interventional radiology would be available here in the morning and by the time coordinating transfer for [facility] may not occur until tomorrow. The transfer center was contacted by her. She even spoke with Interventional Radiology and they are services state that there are not doing any procedures due to patient flow and staffing shortage is unless for trauma or sepsis which this patient may qualify for. However there are no beds Orders Ordered: Acetaminophen (Acetaminophen 325 Mg Tablet) 650 mg PO Q6HR PRN PRN Reason: Fever/Mild Pain (1-3) Hydromorphone HCl (Hydromorphone 4 Mg Tablet) 4 mg PO Q6H PRN PRN Reason: Pain (Scale Score 4-6) Hydromorphone HCl (Hydromorphone 1 Mg Inj) 1 mg IV Q3H PRN PRN Reason: Pain, Moderate (4-6) Vancomycin HCl (Vancomycin) 750 mg in 150 mls @ 100 mls/hr IV Q24H [facility] Piperacillin Sod/Tazobactam (Sod 3.375 gm/ Sodium Chloride) 100 mls @ 25 mls/hr IV Q8H [facility] Last Admin: 05/13/22 00:50 Dose: 25 mls/hr Documented By: ALLIE Dextrose (D10w) 250 mls @ 999 mls/hr IV PRN PRN PRN Reason: Hypoglycemia Last Admin: 05/13/22 06:22 Dose: 999 mls/hr Documented By: REKHA Dextrose/Sodium Chloride (Dextrose 5%-0.9% Ns) 1,000 mls @ 150 mls/hr IV CONT [facility] Lorazepam (Lorazepam 0.5 Mg Tablet) 0.5 mg PO QID PRN PRN Reason: Nausea Ondansetron HCl (Ondansetron 4 Mg/2 Ml Inj) 4 mg IV Q8HR PRN PRN Reason: Nausea And Vomiting Oxybutynin Chloride (Oxybutynin 5 Mg Er Tab) 10 mg PO DAILY [facility] Vancomycin HCl (Vancomycin Per Pharmacy) 1 request MISC NOW ONE Stop: 05/12/22 21:08 Discontinued Medications Albuterol (Albuterol 2.5 Mg/3 Ml Neb (Adult)) 10 mg INH NOW ONE Stop: 05/12/22 16:49 Last Admin: 05/12/22 17:12 Dose: 10 mg Documented By: THOMAS Dextrose (Dextrose 50 % In Water 25 Gm/50 Ml Syringe) 25 gm IV NOW ONE Stop: 05/12/22 16:50 Last Admin: 05/12/22 17:22 Dose: 25 gm Documented By: KATRINA Furosemide (Furosemide 40 Mg/4 Ml Vial) 20 mg IV NOW ONE Stop: 05/12/22 16:49 Last Admin: 05/12/22 17:23 Dose: 20 mg Documented By: KATRINA Sodium Chloride (Normal Saline 0.9%) 1,000 mls @ 1,000 mls/hr IV BOLUS ONE Stop: 05/12/22 17:09 Last Admin: 05/12/22 17:35 Dose: Not Given Documented By: KATRINA Lactated Ringer's (Lactated Ringers) 1,700.97 mls @ 566.99 mls/hr 30 ml/kg infuse over 3 hr (1700.97 ml) IV NOW ONE Stop: 05/12/22 19:47 Last Infusion: 05/12/22 20:38 Dose: 0 mls/hr Documented By: Admin: 05/12/22 17:35 Dose: 566.99 mls/hr Documented By: KATRINA Piperacillin Sod/Tazobactam (Sod 4.5 gm/ Sodium Chloride) 100 mls @ 200 mls/hr IV NOW ONE Stop: 05/12/22 16:54 Last Infusion: 05/12/22 18:50 Dose: 0 mls/hr Documented By: Admin: 05/12/22 17:55 Dose: 200 mls/hr Documented By: KATRINA Vancomycin HCl (Vancomycin) 1,000 mg in 200 mls @ 200 mls/hr IV NOW ONE Stop: 05/12/22 17:52 Last Infusion: 05/12/22 19:57 Dose: 0 mls/hr Documented By: MLAdriana Admin: 05/12/22 18:50 Dose: 200 mls/hr Documented By: KATRINA Piperacillin Sod/Tazobactam (Sod 4.5 gm/ Sodium Chloride) 100 mls @ 25 mls/hr IV Q8H [facility] Sodium Chloride (Normal Saline 0.9%) 1,000 mls @ 150 mls/hr IV CONT [facility] Last Admin: 05/12/22 21:40 Dose: 150 mls/hr Documented By: MOUSTAPHA Sodium Chloride (Normal Saline 0.9%) 1,000 mls @ 1,000 mls/hr IV BOLUS ONE Stop: 05/12/22 23:02 Last Admin: 05/12/22 22:12 Dose: 1,000 mls/hr Documented By: MOUSTAPHA Insulin Human Regular (Insulin Regular 100 Unit/Ml 3 Ml Vial) 5 unit IV NOW ONE Stop: 05/12/22 16:50 Last Admin: 05/12/22 17:26 Dose: 5 unit Documented By: KATRINA Co-signed By: PEÑA Vital Signs Vital signs: Vital Signs - 8 hr 05/12/22 18:00 05/12/22 18:15 05/12/22 18:15 Pulse Rate 106 H 105 H Respiratory Rate 26 H 27 H Blood Pressure 115/66 Pulse Oximetry 97 05/12/22 18:31 05/12/22 18:31 Pulse Rate 109 H Respiratory Rate 22 Blood Pressure 119/74 Pulse Oximetry 90 L MDM - Weakness <Love Barker, - Last Filed: 05/13/22 07:32> Lab Data Result diagrams: 05/13/22 05:15 05/13/22 05:15 Labs: Lab Results 05/12/22 05/12/22 05/12/22 Range/Units 15:40 16:00 16:00 WBC 6.0 (4.5-11.0) X10^3/uL RBC 2.67 L (4.0-5.2) X10^6/uL Hgb 8.1 L (12.0-16.0) g/dL Hct 24.4 L (36-46) % MCV 91.3 (80-100) fL MCH 30.2 (26-34) PG MCHC 33.1 (30-36) % RDW 20.6 H (11.6-14.8) % Plt Count 34 L* (150-400) X10^3/uL Neut % (Auto) 88.0 H (50-75) % Lymph % (Auto) 10.2 L (25-40) % [place] % (Auto) 1.1 L (3-14) % Eos % (Auto) 0.3 L (2-4) % Baso % (Auto) 0.4 (0-2) % Neut # (Auto) 5300 (7405-8847) /uL Lymph # (Auto) 600 L (1571-4224) /uL [place] # (Auto) 100 (0-900) /uL Eos # (Auto) 0 (0-450) /uL Baso # (Auto) 0 (0-100) /uL RBC Morphology See below Poikilocytosis 1+ H Anisocytosis 2+ H Sodium 125 L (137-145) mmol/L Potassium 5.8 H (3.4-5.1) mmol/L Chloride 91 L (98-107) mmol/L Carbon Dioxide 20 L (22-32) mmol/L BUN 60 H (7-17) mg/dL Creatinine 2.72 H (0.52-1.04) mg/dL Estimated GFR 20 L (>60) mL/min BUN/Creatinine Ratio 22.1 H (6-22) Glucose 87 (70-100) mg/dL Lactate (0.7-2.1) mmol/L Calcium 8.3 L (8.4-10.2) mg/dL Phosphorus (2.5-4.5) mg/dL Magnesium (1.6-2.3) mg/dL Total Bilirubin 2.2 H (0.2-1.3) mg/dL AST 217 H (14-36) IU/L ALT 49 H (<35) IU/L Alkaline Phosphatase 1164 H (38-126) U/L Total Protein 5.8 L (6.3-8.2) g/dL Albumin 2.9 L (3.5-5.0) g/dL Globulin 2.9 (1.7-4.1) g/dL Albumin/Globulin Ratio 1.0 (1.0-2.8) Lipase 74 (23-300) U/L Procalcitonin 8.41 H (<0.5) ng/mL Urine Color Urine Appearance Urine pH (4.5-8.0) Ur Specific [place] (1.000-1.035) Urine Protein (Negative) Urine Glucose (UA) (Negative) g/dL Urine Ketones (NEGATIVE) Urine Occult Blood (Negative) Urine Nitrate (Negative) Urine Bilirubin (NEGATIVE) Urine Urobilinogen (0.2) E.U./dL Ur Leukocyte Esterase (NEGATIVE) Urine RBC (0-5/HPF) Urine WBC (0-5/HPF) Ur Squamous Epith Cells (0-5/HPF) Amorphous Sediment Urine Bacteria (None) Urine Mucus (Negative) Ur Culture Indicated? SARS-CoV-2 (PCR) Negative (Negative) Blood Type Antibody Screen Crossmatch 05/12/22 05/12/22 05/12/22 Range/Units 16:00 16:00 17:00 WBC (4.5-11.0) X10^3/uL RBC (4.0-5.2) X10^6/uL Hgb (12.0-16.0) g/dL Hct (36-46) % MCV (80-100) fL MCH (26-34) PG MCHC (30-36) % RDW (11.6-14.8) % Plt Count (150-400) X10^3/uL Neut % (Auto) (50-75) % Lymph % (Auto) (25-40) % [place] % (Auto) (3-14) % Eos % (Auto) (2-4) % Baso % (Auto) (0-2) % Neut # (Auto) (4921-8707) /uL Lymph # (Auto) (6889-4002) /uL [place] # (Auto) (0-900) /uL Eos # (Auto) (0-450) /uL Baso # (Auto) (0-100) /uL RBC Morphology Poikilocytosis Anisocytosis Sodium (137-145) mmol/L Potassium (3.4-5.1) mmol/L Chloride (98-107) mmol/L Carbon Dioxide (22-32) mmol/L BUN (7-17) mg/dL Creatinine (0.52-1.04) mg/dL Estimated GFR (>60) mL/min BUN/Creatinine Ratio (6-22) Glucose (70-100) mg/dL Lactate 6.4 H* (0.7-2.1) mmol/L Calcium (8.4-10.2) mg/dL Phosphorus 4.6 H (2.5-4.5) mg/dL Magnesium 1.6 (1.6-2.3) mg/dL Total Bilirubin (0.2-1.3) mg/dL AST (14-36) IU/L ALT (<35) IU/L Alkaline Phosphatase (38-126) U/L Total Protein (6.3-8.2) g/dL Albumin (3.5-5.0) g/dL Globulin (1.7-4.1) g/dL Albumin/Globulin Ratio (1.0-2.8) Lipase (23-300) U/L Procalcitonin (<0.5) ng/mL Urine Color Urine Appearance Urine pH (4.5-8.0) Ur Specific [place] (1.000-1.035) Urine Protein (Negative) Urine Glucose (UA) (Negative) g/dL Urine Ketones (NEGATIVE) Urine Occult Blood (Negative) Urine Nitrate (Negative) Urine Bilirubin (NEGATIVE) Urine Urobilinogen (0.2) E.U./dL Ur Leukocyte Esterase (NEGATIVE) Urine RBC (0-5/HPF) Urine WBC (0-5/HPF) Ur Squamous Epith Cells (0-5/HPF) Amorphous Sediment Urine Bacteria (None) Urine Mucus (Negative) Ur Culture Indicated? SARS-CoV-2 (PCR) (Negative) Blood Type O Positive Antibody Screen Negative Crossmatch See Detail 05/12/22 Range/Units 18:00 WBC (4.5-11.0) X10^3/uL RBC (4.0-5.2) X10^6/uL Hgb (12.0-16.0) g/dL Hct (36-46) % MCV (80-100) fL MCH (26-34) PG MCHC (30-36) % RDW (11.6-14.8) % Plt Count (150-400) X10^3/uL Neut % (Auto) (50-75) % Lymph % (Auto) (25-40) % [place] % (Auto) (3-14) % Eos % (Auto) (2-4) % Baso % (Auto) (0-2) % Neut # (Auto) (2182-9356) /uL Lymph # (Auto) (7513-4100) /uL [place] # (Auto) (0-900) /uL Eos # (Auto) (0-450) /uL Baso # (Auto) (0-100) /uL RBC Morphology Poikilocytosis Anisocytosis Sodium (137-145) mmol/L Potassium (3.4-5.1) mmol/L Chloride (98-107) mmol/L Carbon Dioxide (22-32) mmol/L BUN (7-17) mg/dL Creatinine (0.52-1.04) mg/dL Estimated GFR (>60) mL/min BUN/Creatinine Ratio (6-22) Glucose (70-100) mg/dL Lactate (0.7-2.1) mmol/L Calcium (8.4-10.2) mg/dL Phosphorus (2.5-4.5) mg/dL Magnesium (1.6-2.3) mg/dL Total Bilirubin (0.2-1.3) mg/dL AST (14-36) IU/L ALT (<35) IU/L Alkaline Phosphatase (38-126) U/L Total Protein (6.3-8.2) g/dL Albumin (3.5-5.0) g/dL Globulin (1.7-4.1) g/dL Albumin/Globulin Ratio (1.0-2.8) Lipase (23-300) U/L Procalcitonin (<0.5) ng/mL Urine Color Yellow Urine Appearance Cloudy Urine pH 6.5 (4.5-8.0) Ur Specific [place] 1.010 (1.000-1.035) Urine Protein 2+ H (Negative) Urine Glucose (UA) Negative (Negative) g/dL Urine Ketones Negative (NEGATIVE) Urine Occult Blood 3+ H (Negative) Urine Nitrate Negative (Negative) Urine Bilirubin Negative (NEGATIVE) Urine Urobilinogen 0.2 (0.2) E.U./dL Ur Leukocyte Esterase 1+ H (NEGATIVE) Urine RBC >100/hpf H (0-5/HPF) Urine WBC 1-5/hpf (0-5/HPF) Ur Squamous Epith Cells 0-1 /hpf (0-5/HPF) Amorphous Sediment 1+ Urine Bacteria Few (2-10) H (None) Urine Mucus 1+ H (Negative) Ur Culture Indicated? Specimen cultured SARS-CoV-2 (PCR) (Negative) Blood Type Antibody Screen Crossmatch Point of Care Testing Glucose POC [address] scan - head: Radiologist Impression: [address] [place] [address] CT Scan Report Signed Patient: Libby Patel MR#: [id number] : 1965 Acct:[id number] Age/Sex: 56 / F Date of Service: 05/12/22 Loc: Accession Number: [id number] ?? Procedure: CT head/brain wo con Ordering Provider: Love Barker D.O. PROCEDURE:? CT HEAD/BRAIN WO CON ? INDICATIONS:? falls x 3 metastatic cancer ? TECHNIQUE:? Noncontrast 4.5 mm thick angled axial sections acquired from the foramen magnum to the vertex, with coronal and sagittal reformats.? For radiation dose reduction, the following was used:? automated exposure control, adjustment of mA and/or kV according to patient size.? ? COMPARISON:? [facility], CT, CT HEAD/BRAIN WO CON, 12/11/2018, 21:45. ? FINDINGS:? Image quality:? Excellent.? ? CSF spaces:? Basal cisterns are patent.? No extra-axial fluid collections.? Ventricles are normal in size and shape.? ? Brain:? No midline shift.? No intracranial masses or hemorrhage.? Negron-white matter interface is normal.? ? Skull and face:? Calvarium and visualized facial bones are intact, without suspicious lesions.? ? Sinuses:? Visualized sinuses and mastoids are clear.? Previously, there was near complete opacification of the ethmoids.? This has resolved.? ? IMPRESSION:? No evidence acute intracranial process. ? ? Dictated by: Anthony Sales M.D. on 05/12/2022 at 16:00 ? CT scan - abdomen/pelvis: Radiologist Impression: Signed Patient: Libby Patel MR#: [id number] : 1965 Acct:[id number] Age/Sex: 56 / F Date of Service: 05/12/22 Loc: [place] [address] Accession Number: [id number] ?? Procedure: CT abdomen pelvis wo con Ordering Provider: Love Barker D.O. PROCEDURE:? CT ABDOMEN PELVIS WO CON ? INDICATIONS:? cancer stent placement ? TECHNIQUE:? Noncontrast 5 mm thick sections acquired from the diaphragms to the symphysis.? 5 mm coronal and sagittal reformats were then performed.? For radiation dose reduction, the following was used:? automated exposure control, adjustment of mA and/or kV according to patient size.? ? COMPARISON:? [facility], CT, CT CHEST ABD PEL W CON, 02/27/2022, 15:30.? [facility], CT, CT ABDOMEN PELVIS WITH CONTRAST, 03/09/2022, 22:19. ? FINDINGS:? Image quality:? Image degraded by patient motion artifact. ? ABDOMEN:? Lung bases:? Bibasilar atelectasis.? Trace right pleural effusion.? Heart size is normal. ? ? Solid organs:? Redemonstration of innumerable hepatic hypodensities compatible with metastatic disease.? Gallbladder is unremarkable .? Pancreas is normal in contours.? Spleen is normal in size.? No adrenal nodules.? Interval placement of right double-J ureteral stent.? The proximal portion of the ureteral stent appears to be near the right renal pelvis.? There is persistent moderate-severe right hydronephrosis.? Distal end of the right ureteral stent is presumably within the decompressed urinary bladder although it is difficult to definitively delineate given lack of intravenous contrast and Luong catheter decompressing the bladder.? Left double-J ureteral stent is again noted and appears similar in positioning.? There is mild left hydronephrosis, more pronounced compared to the prior studies. ? Peritoneum and bowel:? Unenhanced bowel loops demonstrate normal wall thickness and caliber.? No free air identified.? No pneumatosis.? Stable to increased amount of scattered free fluid seen throughout the abdomen and pelvis.? ? Nodes and vessels:? Extensive retroperitoneal adenopathy is again noted.? These are not well visualized secondary to lack of intravenous contrast and multiple adjacent loops of decompressed bowel.? These appear to be relatively stable compared to the prior studies. ? Miscellaneous:? No ventral hernias.? Diffuse anasarca. ? ? PELVIS:? Genitourinary:? Urinary bladder is decompressed by Luong catheter. ? Miscellaneous:? No inguinal hernias or adenopathy.? ? Bones:? No suspicious bony lesions.? No vertebral body compression fractures.? ? IMPRESSION:? ? 1. Interval placement of double-J right ureteral stent with persistent moderate-severe right hydronephrosis.? The proximal end of the stent is likely within the right renal pelvis but difficult to delineate.? Distal end is presumably within the decompressed urinary bladder. ? 2. Left double-J ureteral stent remains in place with mild left hydronephrosis which is more pronounced compared to the prior studies. ? 3. Accounting for differences in imaging technique and lack of intravenous contrast, relatively stable appearance of diffuse hepatic metastases and extensive retroperitoneal lymphadenopathy.? There is stable to slight increase in scattered abdominal and pelvic ascites.? ? ? 4. Diffuse anasarca. ? Consider distending urinary bladder with saline to rescanned the pelvis for confirmation of distal ureteral stent placement. ? Findings were discussed with Dr. Barker at 1850 hrs.? ? Dictated by: Pepe Ricks M.D. on 05/12/2022 at 18:35 ? ? Approved by: Pepe Ricks M.D. on 05/12/2022 at 18:55 ? Chest x-ray: Radiologist Impression: XRay Report Signed Patient: Libby Patel MR#: [id number] : 1965 Acct:[id number] Age/Sex: 56 / F Date of Service: 05/12/22 Loc: ED Accession Number: [id number] ?? Procedure: XR chest 1V Ordering Provider: Love Barker D.O. PROCEDURE:? XR CHEST 1V ? INDICATIONS:? suspected sepsis ? TECHNIQUE:? One view of the chest was acquired.? ? COMPARISON:? [facility], , XR CHEST 1V, 08/06/2021, 9:32. ? FINDINGS:? ? Surgical changes and devices:? Right chest Port-A-Cath ? Lungs and pleura:? Submaximal inspiration patchy bibasilar atelectasis.? No pleural effusions or pneumothorax.? ? Mediastinum:? Mediastinal contours appear normal.? Heart size is normal.? ? Bones and chest wall:? No suspicious bony lesions.? Overlying soft tissues appear unremarkable.? ? IMPRESSION:? Submaximal inspiration with patchy bibasilar atelectasis. ? ? Dictated by: Anthony Sales M.D. on 05/12/2022 at 16:02 ? ? ECG Data Interpretation: Normal sinus rhythm rate [address] changes MDM Narrative Medical decision making narrative: Patient overall is terminally ill. She has an acute mental status and physical twisting frame changer last 1 day. The patient's says that they were walking around [facility] yesterday however she is not able to do so today. He is found have electrolyte abnormalities mildly hyponatremic although not significantly off from her baseline mildly hyperkalemic. She has an increased creatinine 2.7 whereas previously 2 days ago a was within normal limits. She is found have a lactate of 6.4 as well. Concern for sepsis. She is given empiric antibiotics of Zosyn and vancomycin. She is also given sepsis fluids. She had bilateral stents placement with Dr. Pack in March. CT cannot confirm appropriate stent placement with increased hydronephrosis. Recommend clamping Luong putting at least 300-400 cc in the bladder every scanning her. She is also noted to be quite thrombocytopenic more so than previously Goals of care discussion with patient and her has been. I question if patient truly understands what is happening. She says that she wants to continue to be a full code. Has been is hesitant to step and feels like she is still making decisions. Currently not comfort measures only. Dr. Calvin has been updated headache patient Dr. Yung follow up on CT <Rajat Cohn MD - Last Filed: 05/13/22 06:46> Lab Data Labs: Lab Results 05/12/22 05/12/22 05/12/22 Range/Units 15:40 16:00 16:00 WBC 6.0 (4.5-11.0) X10^3/uL RBC 2.67 L (4.0-5.2) X10^6/uL Hgb 8.1 L (12.0-16.0) g/dL Hct 24.4 L (36-46) % MCV 91.3 (80-100) fL MCH 30.2 (26-34) PG MCHC 33.1 (30-36) % RDW 20.6 H (11.6-14.8) % Plt Count 34 L* (150-400) X10^3/uL Neut % (Auto) 88.0 H (50-75) % Lymph % (Auto) 10.2 L (25-40) % [place] % (Auto) 1.1 L (3-14) % Eos % (Auto) 0.3 L (2-4) % Baso % (Auto) 0.4 (0-2) % Neut # (Auto) 5300 (3832-3185) /uL Lymph # (Auto) 600 L (4120-0726) /uL [place] # (Auto) 100 (0-900) /uL Eos # (Auto) 0 (0-450) /uL Baso # (Auto) 0 (0-100) /uL RBC Morphology See below Poikilocytosis 1+ H Anisocytosis 2+ H Sodium 125 L (137-145) mmol/L Potassium 5.8 H (3.4-5.1) mmol/L Chloride 91 L (98-107) mmol/L Carbon Dioxide 20 L (22-32) mmol/L BUN 60 H (7-17) mg/dL Creatinine 2.72 H (0.52-1.04) mg/dL Estimated GFR 20 L (>60) mL/min BUN/Creatinine Ratio 22.1 H (6-22) Glucose 87 (70-100) mg/dL Lactate (0.7-2.1) mmol/L Calcium 8.3 L (8.4-10.2) mg/dL Phosphorus (2.5-4.5) mg/dL Magnesium (1.6-2.3) mg/dL Total Bilirubin 2.2 H (0.2-1.3) mg/dL AST 217 H (14-36) IU/L ALT 49 H (<35) IU/L Alkaline Phosphatase 1164 H (38-126) U/L Total Protein 5.8 L (6.3-8.2) g/dL Albumin 2.9 L (3.5-5.0) g/dL Globulin 2.9 (1.7-4.1) g/dL Albumin/Globulin Ratio 1.0 (1.0-2.8) Lipase 74 (23-300) U/L Procalcitonin 8.41 H (<0.5) ng/mL Urine Color Urine Appearance Urine pH (4.5-8.0) Ur Specific [place] (1.000-1.035) Urine Protein (Negative) Urine Glucose (UA) (Negative) g/dL Urine Ketones (NEGATIVE) Urine Occult Blood (Negative) Urine Nitrate (Negative) Urine Bilirubin (NEGATIVE) Urine Urobilinogen (0.2) E.U./dL Ur Leukocyte Esterase (NEGATIVE) Urine RBC (0-5/HPF) Urine WBC (0-5/HPF) Ur Squamous Epith Cells (0-5/HPF) Amorphous Sediment Urine Bacteria (None) Urine Mucus (Negative) Ur Culture Indicated? SARS-CoV-2 (PCR) Negative (Negative) Blood Type Antibody Screen Crossmatch 05/12/22 05/12/22 05/12/22 Range/Units 16:00 16:00 17:00 WBC (4.5-11.0) X10^3/uL RBC (4.0-5.2) X10^6/uL Hgb (12.0-16.0) g/dL Hct (36-46) % MCV (80-100) fL MCH (26-34) PG MCHC (30-36) % RDW (11.6-14.8) % Plt Count (150-400) X10^3/uL Neut % (Auto) (50-75) % Lymph % (Auto) (25-40) % [place] % (Auto) (3-14) % Eos % (Auto) (2-4) % Baso % (Auto) (0-2) % Neut # (Auto) (2470-7273) /uL Lymph # (Auto) (4891-3090) /uL [place] # (Auto) (0-900) /uL Eos # (Auto) (0-450) /uL Baso # (Auto) (0-100) /uL RBC Morphology Poikilocytosis Anisocytosis Sodium (137-145) mmol/L Potassium (3.4-5.1) mmol/L Chloride (98-107) mmol/L Carbon Dioxide (22-32) mmol/L BUN (7-17) mg/dL Creatinine (0.52-1.04) mg/dL Estimated GFR (>60) mL/min BUN/Creatinine Ratio (6-22) Glucose (70-100) mg/dL Lactate 6.4 H* (0.7-2.1) mmol/L Calcium (8.4-10.2) mg/dL Phosphorus 4.6 H (2.5-4.5) mg/dL Magnesium 1.6 (1.6-2.3) mg/dL Total Bilirubin (0.2-1.3) mg/dL AST (14-36) IU/L ALT (<35) IU/L Alkaline Phosphatase (38-126) U/L Total Protein (6.3-8.2) g/dL Albumin (3.5-5.0) g/dL Globulin (1.7-4.1) g/dL Albumin/Globulin Ratio (1.0-2.8) Lipase (23-300) U/L Procalcitonin (<0.5) ng/mL Urine Color Urine Appearance Urine pH (4.5-8.0) Ur Specific [place] (1.000-1.035) Urine Protein (Negative) Urine Glucose (UA) (Negative) g/dL Urine Ketones (NEGATIVE) Urine Occult Blood (Negative) Urine Nitrate (Negative) Urine Bilirubin (NEGATIVE) Urine Urobilinogen (0.2) E.U./dL Ur Leukocyte Esterase (NEGATIVE) Urine RBC (0-5/HPF) Urine WBC (0-5/HPF) Ur Squamous Epith Cells (0-5/HPF) Amorphous Sediment Urine Bacteria (None) Urine Mucus (Negative) Ur Culture Indicated? SARS-CoV-2 (PCR) (Negative) Blood Type O Positive Antibody Screen Negative Crossmatch See Detail 05/12/22 Range/Units 18:00 WBC (4.5-11.0) X10^3/uL RBC (4.0-5.2) X10^6/uL Hgb (12.0-16.0) g/dL Hct (36-46) % MCV (80-100) fL MCH (26-34) PG MCHC (30-36) % RDW (11.6-14.8) % Plt Count (150-400) X10^3/uL Neut % (Auto) (50-75) % Lymph % (Auto) (25-40) % [place] % (Auto) (3-14) % Eos % (Auto) (2-4) % Baso % (Auto) (0-2) % Neut # (Auto) (9957-8031) /uL Lymph # (Auto) (1622-0835) /uL [place] # (Auto) (0-900) /uL Eos # (Auto) (0-450) /uL Baso # (Auto) (0-100) /uL RBC Morphology Poikilocytosis Anisocytosis Sodium (137-145) mmol/L Potassium (3.4-5.1) mmol/L Chloride (98-107) mmol/L Carbon Dioxide (22-32) mmol/L BUN (7-17) mg/dL Creatinine (0.52-1.04) mg/dL Estimated GFR (>60) mL/min BUN/Creatinine Ratio (6-22) Glucose (70-100) mg/dL Lactate (0.7-2.1) mmol/L Calcium (8.4-10.2) mg/dL Phosphorus (2.5-4.5) mg/dL Magnesium (1.6-2.3) mg/dL Total Bilirubin (0.2-1.3) mg/dL AST (14-36) IU/L ALT (<35) IU/L Alkaline Phosphatase (38-126) U/L Total Protein (6.3-8.2) g/dL Albumin (3.5-5.0) g/dL Globulin (1.7-4.1) g/dL Albumin/Globulin Ratio (1.0-2.8) Lipase (23-300) U/L Procalcitonin (<0.5) ng/mL Urine Color Yellow Urine Appearance Cloudy Urine pH 6.5 (4.5-8.0) Ur Specific [place] 1.010 (1.000-1.035) Urine Protein 2+ H (Negative) Urine Glucose (UA) Negative (Negative) g/dL Urine Ketones Negative (NEGATIVE) Urine Occult Blood 3+ H (Negative) Urine Nitrate Negative (Negative) Urine Bilirubin Negative (NEGATIVE) Urine Urobilinogen 0.2 (0.2) E.U./dL Ur Leukocyte Esterase 1+ H (NEGATIVE) Urine RBC >100/hpf H (0-5/HPF) Urine WBC 1-5/hpf (0-5/HPF) Ur Squamous Epith Cells 0-1 /hpf (0-5/HPF) Amorphous Sediment 1+ Urine Bacteria Few (2-10) H (None) Urine Mucus 1+ H (Negative) Ur Culture Indicated? Specimen cultured SARS-CoV-2 (PCR) (Negative) Blood Type Antibody Screen Crossmatch Point of Care Testing Glucose POC [address] abdomen pelvis without contrast: Radiologist Impression: [address] [address] [address] Scan Report Signed Patient: Libby Patel MR#: [id number] : 1965 Acct:[id number] Age/Sex: 56 / F Date of Service: 05/12/22 Loc: 222-1 Accession Number: [id number] ?? Procedure: CT abdomen pelvis wo con Ordering Provider: Rajat Cohn MD PROCEDURE:? CT ABDOMEN PELVIS WO CON ? INDICATIONS:? Abdominal pain/ureteral stent evaluation ? TECHNIQUE:? Noncontrast 5 mm thick sections acquired from the diaphragms to the symphysis.? 5 mm coronal and sagittal reformats were then performed.? For radiation dose reduction, the following was used:? automated exposure control, adjustment of mA and/or kV according to patient size.? ? For this examination, the patient's urinary bladder was distended with sterile saline through the Luong catheter and the Luong catheter was then clamped to evaluate the urinary bladder. ? COMPARISON:? [facility], CT, CT ABDOMEN PELVIS WITH CONTRAST, 03/09/2022, 22:19.? [facility], CT, CT ABDOMEN PELVIS WO CON, 05/12/2022, 18:16. ? FINDINGS:? Image quality:? Diagnostic.? ? ABDOMEN:? Lung bases:? Bibasilar atelectasis with trace right pleural effusion.? Heart size is normal.? ? Solid organs:? Redemonstration of innumerable hepatic metastases.? Gallbladder is unremarkable.? Pancreas is normal in contours.? Spleen is normal in size.? No adrenal nodules.? Stable positioning of left double-J ureteral stent within the left renal collecting system.? Both the distal and proximal ends appear stable in positioning.? Mild left hydronephrosis unchanged.? No perinephric stranding. The right-sided double-J ureteral stent is again noted.? The distal end is within the urinary bladder.? The proximal end is likely within the proximal right ureter just beyond the ureteropelvic junction.? Comparison with prior study suggest possible tortuosity at the right ureteropelvic junction and/or stricture ring.? Redemonstration of severe right hydronephrosis and extensive dilatation of the right renal pelvis.? No perinephric stranding. ? Peritoneum and bowel:? Unenhanced bowel loops demonstrate normal wall thickness and caliber.? No free air.? Scattered abdominal and pelvic ascites as before. ? Nodes and vessels:? Extensive retroperitoneal adenopathy is again noted.? Aorta and inferior vena cava are normal in caliber.? ? Miscellaneous:? No ventral hernias.? Diffuse anasarca. ? ? PELVIS:? Genitourinary:? Luong catheter remains in place.? The urinary bladder was distended with normal saline prior to this examination for better evaluation as well as for confirmation of stent placement.? Air in the anti dependent portions of the urinary bladder are likely from recent installation of saline solution. ? Miscellaneous:? No inguinal hernias or adenopathy.? ? Bones:? No suspicious bony lesions.? No acute vertebral body compression fractures.? ? IMPRESSION:? ? 1. Right-sided double-J ureteral stent is in place with the proximal and likely within the proximal right ureter at the level of the ureteropelvic junction.? There is severe right hydronephrosis with moderate dilation of the right renal pelvis.? Distal end of the stent is visualized within the urinary bladder. ? 2. Stable positioning of the left ureteral stent. ? 3. Other findings as above.? No interval change compared to CT from earlier same day. ? Findings were discussed telephonically with Dr. Cohn at 2115 hrs. Recommend urology consultation.? ? ? Dictated by: Pepe Ricks M.D. on 05/12/2022 at 20:56 ? ? Approved by: Pepe Ricks M.D. on 05/12/2022 at 21:16 ? Critical Care Time <Love Barker DO - Last Filed: 05/13/22 07:32> Critical Care Time Critical Care Time: Yes Total Critical Care Time: 40 Attestation: The high probability of a clinically significant, sudden or life threatening deterioration of the [cardiovascular] system(s) required my full and direct attention, intervention and personal management. The aggregate critical care time was [40] minutes. This time is in addition to time spent performing reported procedures but includes the following: [x] Data Review and interpretation [x] Patient assessment and monitoring of vital signs [x] Documentation [x] Medication orders and management Discharge Plan Departure Patient Disposition: Admitted As Inpatient Clinical Impression: Sepsis, Acute hyponatremia, Acute hyperkalemia, Thrombocytopenia Admit Date/Time: 05/12/22 18:36 Admit Provider: Matt Calvin
--- NOTE | 2022-05-12 16:11 | DI.RAD.S_ITS ---
PROCEDURE: XR CHEST 1V INDICATIONS: suspected sepsis TECHNIQUE: One view of the chest was acquired. COMPARISON: [facility], CR, XR CHEST 1V, 08/06/2021, 9:32. FINDINGS: Surgical changes and devices: Right chest Port-A-Cath Lungs and pleura: Submaximal inspiration patchy bibasilar atelectasis. No pleural effusions or pneumothorax. Mediastinum: Mediastinal contours appear normal. Heart size is normal. Bones and chest wall: No suspicious bony lesions. Overlying soft tissues appear unremarkable. IMPRESSION: Submaximal inspiration with patchy bibasilar atelectasis. Dictated by: Anthony Sales M.D. on 05/12/2022 at 16:02 Approved by: Anthony Sales M.D. on 05/12/2022 at 16:02
[2022-05-12 16:23] LABS: Alanine Aminotransferase 49 IU/L (<35); Albumin 2.9 g/dL (3.5-5.0); Alkaline Phosphatase 1164 U/L (38-126); Aspartate Aminotransferase 217 IU/L (14-36); BUN Creatinine Ratio 22.1 (6-22); Bilirubin Total 2.2 mg/dL (0.2-1.3); Blood Urea Nitrogen 60 mg/dL (7-17); Calcium 8.3 mg/dL (8.4-10.2); Carbon Dioxide 20 mmol/L (22-32); Chloride 91 mmol/L (98-107); Estimated Glomerular Filt Rate 20 mL/min (>60); Globulin 2.9 g/dL (1.7-4.1); Glucose 87 mg/dL (70-100); HEMOLYSIS < 15 (0-50); Lipase 74 U/L (23-300); Sodium 125 mmol/L (137-145); Total Protein 5.8 g/dL (6.3-8.2)
--- NOTE | 2022-05-12 16:24 | DI.CT.S_ITS ---
PROCEDURE: CT HEAD/BRAIN WO CON INDICATIONS: falls x 3 metastatic cancer TECHNIQUE: Noncontrast 4.5 mm thick angled axial sections acquired from the foramen magnum to the vertex, with coronal and sagittal reformats. For radiation dose reduction, the following was used: automated exposure control, adjustment of mA and/or kV according to patient size. COMPARISON: [facility], CT, CT HEAD/BRAIN WO CON, 12/11/2018, 21:45. FINDINGS: Image quality: Excellent. CSF spaces: Basal cisterns are patent. No extra-axial fluid collections. Ventricles are normal in size and shape. Brain: No midline shift. No intracranial masses or hemorrhage. Negron-white matter interface is normal. Skull and face: Calvarium and visualized facial bones are intact, without suspicious lesions. Sinuses: Visualized sinuses and mastoids are clear. Previously, there was near complete opacification of the ethmoids. This has resolved. IMPRESSION: No evidence acute intracranial process. Dictated by: Anthony Sales M.D. on 05/12/2022 at 16:00 Approved by: Anthony Sales M.D. on 05/12/2022 at 16:01
[2022-05-12 16:28] LABS: Add Manual Diff / Slide Review NO; Basophils Absolute Auto 0 /uL (0-100); Basophils Percent Auto 0.4 % (0-2); Eosinophils Absolute Auto 0 /uL (0-450); Eosinophils Percent Auto 0.3 % (2-4); Hematocrit 24.4 % (36-46); Hemoglobin 8.1 g/dL (12.0-16.0); Lymphocytes Absolute Auto 600 /uL (1100-4500); Lymphocytes Percent Auto 10.2 % (25-40); Mean Corpuscular HGB Conc 33.1 % (30-36); Mean Corpuscular Hemoglobin 30.2 PG (26-34); Mean Corpuscular Volume 91.3 fL (80-100); Monocytes Absolute Auto 100 /uL (0-900); Monocytes Percent Auto 1.1 % (3-14); Neutrophils Absolute Auto 5300 /uL (1500-7000); Red Blood Cell Count 2.67 X10^6/uL (4.0-5.2); Red Cell Distribution Width 20.6 % (11.6-14.8)
[2022-05-12 16:29] LABS: Potassium 5.8 mmol/L (3.4-5.1)
[2022-05-12 16:40] LABS: Procalcitonin 8.41 ng/mL (<0.5)
[2022-05-12 16:41] LABS: Lactate (Lactic Acid) 6.4 mmol/L (0.7-2.1)
[2022-05-12 16:49] LABS: Platelet Count 34 X10^3/uL (150-400)
[2022-05-12 16:53] LABS: Anisocytosis 2+; Poikilocytosis 1+
[2022-05-12 16:58] LABS: Magnesium 1.6 mg/dL (1.6-2.3); Phosphorous 4.6 mg/dL (2.5-4.5)
[2022-05-12 17:02] LABS: COVID19 -Nasal RAPID Negative (Negative)
[2022-05-12] MEDS: ALBUTEROL 2.5 MG/3 ML NEB (ADULT) 10 MG INH (17:12)
[2022-05-12] MEDS: DEXTROSE 50 % IN WATER 25 GM/50 ML SYRINGE IV (17:22)
[2022-05-12] MEDS: FUROSEMIDE 40 MG/4 ML VIAL 20 MG IV (17:23)
[2022-05-12] MEDS: INSULIN REGULAR 100 UNIT/ML 3 ML VIAL IV (17:26)
[2022-05-12] MEDS: LACTATED RINGERS 1,700.97 ML 566.99 ML IV (17:35)
[2022-05-12] MEDS: PIPERACILLIN/TAZO 4.5 GM in SODIUM CHLORIDE 0.9% 100 ML IV (17:55)
--- NOTE | 2022-05-12 18:09 | DI.CT.S_ITS ---
PROCEDURE: CT ABDOMEN PELVIS WO CON INDICATIONS: cancer stent placement TECHNIQUE: Noncontrast 5 mm thick sections acquired from the diaphragms to the symphysis. 5 mm coronal and sagittal reformats were then performed. For radiation dose reduction, the following was used: automated exposure control, adjustment of mA and/or kV according to patient size. COMPARISON: [facility], CT, CT CHEST ABD PEL W CON, 02/27/2022, 15:30. [facility], CT, CT ABDOMEN PELVIS WITH CONTRAST, 03/09/2022, 22:19. FINDINGS: Image quality: Image degraded by patient motion artifact. ABDOMEN: Lung bases: Bibasilar atelectasis. Trace right pleural effusion. Heart size is normal. Solid organs: Redemonstration of innumerable hepatic hypodensities compatible with metastatic disease. Gallbladder is unremarkable . Pancreas is normal in contours. Spleen is normal in size. No adrenal nodules. Interval placement of right double-J ureteral stent. The proximal portion of the ureteral stent appears to be near the right renal pelvis. There is persistent moderate-severe right hydronephrosis. Distal end of the right ureteral stent is presumably within the decompressed urinary bladder although it is difficult to definitively delineate given lack of intravenous contrast and Luogn catheter decompressing the bladder. Left double-J ureteral stent is again noted and appears similar in positioning. There is mild left hydronephrosis, more pronounced compared to the prior studies. Peritoneum and bowel: Unenhanced bowel loops demonstrate normal wall thickness and caliber. No free air identified. No pneumatosis. Stable to increased amount of scattered free fluid seen throughout the abdomen and pelvis. Nodes and vessels: Extensive retroperitoneal adenopathy is again noted. These are not well visualized secondary to lack of intravenous contrast and multiple adjacent loops of decompressed bowel. These appear to be relatively stable compared to the prior studies. Miscellaneous: No ventral hernias. Diffuse anasarca. PELVIS: Genitourinary: Urinary bladder is decompressed by Luong catheter. Miscellaneous: No inguinal hernias or adenopathy. Bones: No suspicious bony lesions. No vertebral body compression fractures. IMPRESSION: 1. Interval placement of double-J right ureteral stent with persistent moderate-severe right hydronephrosis. The proximal end of the stent is likely within the right renal pelvis but difficult to delineate. Distal end is presumably within the decompressed urinary bladder. 2. Left double-J ureteral stent remains in place with mild left hydronephrosis which is more pronounced compared to the prior studies. 3. Accounting for differences in imaging technique and lack of intravenous contrast, relatively stable appearance of diffuse hepatic metastases and extensive retroperitoneal lymphadenopathy. There is stable to slight increase in scattered abdominal and pelvic ascites. 4. Diffuse anasarca. Consider distending urinary bladder with saline to rescanned the pelvis for confirmation of distal ureteral stent placement. Findings were discussed with Dr. Barker at 1850 hrs. Dictated by: Pepe Ricks M.D. on 05/12/2022 at 18:35 Approved by: Pepe Ricks M.D. on 05/12/2022 at 18:55
[2022-05-12 18:14] LABS: Reflexed Lactate in 2 Hours Y
[2022-05-12 18:21] LABS: Appearance Urine UA CLOUDY; Bilirubin Urine UA NEGATIVE (NEGATIVE); Color Urine UA YELLOW; Glucose Urine UA NEGATIVE (Negative); Ketones Urine UA NEGATIVE (NEGATIVE); Leukocyte Esterase Urine UA 1+ (NEGATIVE); Nitrite Urine UA NEGATIVE (Negative); Occult Blood Urine UA 3+ (Negative); Protein Urine UA 2+ (Negative); Urobilinogen Urine UA 0.2 E.U./dL (0.2)
[2022-05-12 18:23] LABS: pH Urine UA 6.5 (4.5-8.0)
[2022-05-12 18:31] LABS: Amorphous Sediment Urine 1+; Bacteria Urine Few (2-10); Culture Indicated Urine Specimen Cultured; Mucus Urine 1+ (Negative); RBC Urine >100/HPF (0-5/HPF); Squamous Epithelial Cell Urine 0-1 /HPF (0-5/HPF); WBC Urine 1-5/HPF (0-5/HPF)
[2022-05-12] MEDS: VANCOMYCIN 1,000 MG/200 ML PIGGYBACK 200 MG IV (18:50)
[2022-05-12 19:15] LABS: BUN Creatinine Ratio 21.9 (6-22); Blood Urea Nitrogen 58 mg/dL (7-17); Calcium 7.9 mg/dL (8.4-10.2); Carbon Dioxide 20 mmol/L (22-32); Chloride 93 mmol/L (98-107); Estimated Glomerular Filt Rate 21 mL/min (>60); Glucose 77 mg/dL (70-100); HEMOLYSIS < 15 (0-50); Sodium 126 mmol/L (137-145)
[2022-05-12 19:18] LABS: Lactate 2HR (Lactic Acid Rflx) 7.8 mmol/L (0.7-2.1)
--- NOTE | 2022-05-12 19:24 | DI.CT.S_ITS ---
PROCEDURE: CT ABDOMEN PELVIS WO CON INDICATIONS: Abdominal pain/ureteral stent evaluation TECHNIQUE: Noncontrast 5 mm thick sections acquired from the diaphragms to the symphysis. 5 mm coronal and sagittal reformats were then performed. For radiation dose reduction, the following was used: automated exposure control, adjustment of mA and/or kV according to patient size. For this examination, the patient's urinary bladder was distended with sterile saline through the Luong catheter and the Luong catheter was then clamped to evaluate the urinary bladder. COMPARISON: [facility], CT, CT ABDOMEN PELVIS WITH CONTRAST, 03/09/2022, 22:19. [facility], CT, CT ABDOMEN PELVIS WO CON, 05/12/2022, 18:16. FINDINGS: Image quality: Diagnostic. ABDOMEN: Lung bases: Bibasilar atelectasis with trace right pleural effusion. Heart size is normal. Solid organs: Redemonstration of innumerable hepatic metastases. Gallbladder is unremarkable. Pancreas is normal in contours. Spleen is normal in size. No adrenal nodules. Stable positioning of left double-J ureteral stent within the left renal collecting system. Both the distal and proximal ends appear stable in positioning. Mild left hydronephrosis unchanged. No perinephric stranding. The right-sided double-J ureteral stent is again noted. The distal end is within the urinary bladder. The proximal end is likely within the proximal right ureter just beyond the ureteropelvic junction. Comparison with prior study suggest possible tortuosity at the right ureteropelvic junction and/or stricture ring. Redemonstration of severe right hydronephrosis and extensive dilatation of the right renal pelvis. No perinephric stranding. Peritoneum and bowel: Unenhanced bowel loops demonstrate normal wall thickness and caliber. No free air. Scattered abdominal and pelvic ascites as before. Nodes and vessels: Extensive retroperitoneal adenopathy is again noted. Aorta and inferior vena cava are normal in caliber. Miscellaneous: No ventral hernias. Diffuse anasarca. PELVIS: Genitourinary: Luong catheter remains in place. The urinary bladder was distended with normal saline prior to this examination for better evaluation as well as for confirmation of stent placement. Air in the anti dependent portions of the urinary bladder are likely from recent installation of saline solution. Miscellaneous: No inguinal hernias or adenopathy. Bones: No suspicious bony lesions. No acute vertebral body compression fractures. IMPRESSION: 1. Right-sided double-J ureteral stent is in place with the proximal and likely within the proximal right ureter at the level of the ureteropelvic junction. There is severe right hydronephrosis with moderate dilation of the right renal pelvis. Distal end of the stent is visualized within the urinary bladder. 2. Stable positioning of the left ureteral stent. 3. Other findings as above. No interval change compared to CT from earlier same day. Findings were discussed telephonically with Dr. Cohn at 2115 hrs. Recommend urology consultation. Dictated by: Pepe Ricks M.D. on 05/12/2022 at 20:56 Approved by: Pepe Ricks M.D. on 05/12/2022 at 21:16
[2022-05-12] MEDS: SODIUM CHLORIDE 0.9% 1,000 ML 150 ML IV (21:40)
[2022-05-12] MEDS: SODIUM CHLORIDE 0.9% 1,000 ML 1000 ML IV (22:12)
[2022-05-13] VITALS (14 sets, daily range): BP systolic 109–142; BP diastolic 58–86; PULSE 72–84; RESP 7–14; TEMP 36.3–37.3; O2SAT 93–97
[2022-05-13] MEDS: PIPERACILLIN/TAZO 3.375 GM in SODIUM CHLORIDE 0.9% 100 ML IV ×3 (00:50→17:08)
[2022-05-13 05:48] LABS: Alanine Aminotransferase 37 IU/L (<35); Albumin 2.2 g/dL (3.5-5.0); Albumin Globulin Ratio 0.9 (1.0-2.8); Alkaline Phosphatase 734 U/L (38-126); Aspartate Aminotransferase 173 IU/L (14-36); BUN Creatinine Ratio 21.9 (6-22); Bilirubin Total 1.6 mg/dL (0.2-1.3); Blood Urea Nitrogen 61 mg/dL (7-17); Calcium 7.3 mg/dL (8.4-10.2); Carbon Dioxide 21 mmol/L (22-32); Chloride 96 mmol/L (98-107); Estimated Glomerular Filt Rate 19 mL/min (>60); Globulin 2.4 g/dL (1.7-4.1); Glucose 61 mg/dL (70-100); HEMOLYSIS < 15 (0-50); Sodium 127 mmol/L (137-145); Total Protein 4.6 g/dL (6.3-8.2)
[2022-05-13 05:56] LABS: Potassium 5.5 mmol/L (3.4-5.1)
[2022-05-13 05:57] LABS: Basophils Absolute Auto 0 /uL (0-100); Basophils Percent Auto 1.8 % (0-2); Eosinophils Absolute Auto 0 /uL (0-450); Eosinophils Percent Auto 0.3 % (2-4); Lymphocytes Absolute Auto 700 /uL (1100-4500); Lymphocytes Percent Auto 24.5 % (25-40); Mean Corpuscular HGB Conc 33.9 % (30-36); Mean Corpuscular Hemoglobin 31.1 PG (26-34); Mean Corpuscular Volume 91.8 fL (80-100); Monocytes Absolute Auto 100 /uL (0-900); Neutrophils Absolute Auto 1900 /uL (1500-7000); Neutrophils Percent Auto 71.4 % (50-75); Red Blood Cell Count 1.89 X10^6/uL (4.0-5.2); Red Cell Distribution Width 20.6 % (11.6-14.8); White Blood Cell Count 2.7 X10^3/uL (4.5-11.0)
[2022-05-13 06:11] LABS: Hematocrit 17.4 % (36-46); Hemoglobin 5.9 g/dL (12.0-16.0)
[2022-05-13 06:14] LABS: Add Manual Diff / Slide Review SLIDE REVIEW; Platelet Count 15 X10^3/uL (150-400)
[2022-05-13] MEDS: DEXTROSE 10 % IN WATER 250 ML 999 ML IV (06:22)
--- NOTE | 2022-05-13 06:52 | PC.NURSE ---
Critical lab notification, H&H 5.9/17.4, Plts 15, also blood glucose at 61. Called Dr Calvin, orders for D10/NS 250 mls at 999. Also orders for type and cross and 3 units PRBC. Will follow.
[2022-05-13 07:19] LABS: Anisocytosis 2+
[2022-05-13 07:20] LABS: Platelet Estimate Decreased on smear
--- NOTE | 2022-05-13 09:20 | P.HP_ITS ---
History of Present Illness History of Present Illness Chief complaint: Weak, Fell X 3. Stage 4 CA PT Narrative: Pt with advanced ovarian cancer s/p final round of chemo treatment ever last week with ureteral stents placed 2/2 mass effect now presents with FELECIA and dislodged stent. Needs urgent stent addressing or percutaneous drainage have placed consults with IR and urology to address this we do not have capability here urgently exploring transfer or field trip, ED was not successful last night. 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 Bill at bedside. Pancytopenia noted she did just finish final palliative round of chemo this last week. Neutropenic with lactic acidosis started on broad spec abx. Feels ok this morning no pain does endorse some flank tenderness not very thirsty she is anuric despite good manley confirmation. Vitals have been essentially stable not requiring oxygen or pressors she is stable for transport if possible. Patient History Medical History Acute kidney injury Asthma Endometrioid adenocarcinoma of right ovary Hydronephrosis of right kidney Obstruction of right ureter Surgical History History of exploratory laparotomy (~07/20/20) History of surgery History of surgery S/P ELIAZAR-BSO Family & Social History Family History Mother Cancer Hypertension Father Hypertension Social History: household members spouse Prior Living Arrangements House Safety & Behavioral: Feels Safe in Current Yes Environment Tobacco & Substance use: Smoking Status Never smoker alcohol intake never alcohol intake frequency a few times a month Substance Use Type opiates,does not use Meds Home Medications and Allergies Home Medications Medication Instructions Recorded Confirmed Type ondansetron 8 mg disintegrating 8 mg PO Q12H PRN Nausea #25 tabs 11/07/21 05/12/22 Rx tablet gabapentin 300 mg capsule 300 mg PO TID 05/12/22 05/12/22 History oxycodone 30 mg tablet,crush 30 mg PO Q8HR 05/12/22 05/12/22 History resistant,extended release 12 hr (OxyContin) oxycodone 5 mg tablet 5 mg PO Q4H PRN Pain (Scale Score 05/12/22 05/12/22 History 7-10) Allergies Allergy/AdvReac Type Severity Reaction Status Date / Time No Known Drug Allergies Allergy Verified 05/12/22 15:25 Review of Systems Review of Systems Narrative: all systems reviewed and negative except as otherwise documented in HPI Exam Vital Signs (past 8 hours): - 05/13/22 01:30 05/13/22 06:30 05/13/22 07:00 Temperature 98.5 F Pulse Rate 83 72 84 Respiratory Rate 7 L 10 L Blood Pressure 115/63 119/74 Pulse Oximetry 93 97 97 Oxygen Flow Rate 0 0 0 05/13/22 07:58 05/13/22 08:15 Temperature 98.7 F 99.2 F Pulse Rate 84 83 Respiratory Rate 12 12 Blood Pressure 110/58 L 109/65 Pulse Oximetry Oxygen Flow Rate Oxygen Delivery Method Room Air Oxygen Flow Rate 0 Narrative Exam Narrative: exhausted ill appearing tired female in bed with at bedside Const Other: cachectic with port on R chest Resp Auscultation: clear to auscultation bilaterally Cardio Other: prominent heart sounds, S1/S2 GI Other: mild distention with hypoactive bowel sounds Skin General: purpura (on knees) Neuro General: patient alert and patient awake Objective Labs Result Diagrams: 05/13/22 05:15 05/13/22 05:15 Labs: Laboratory Results - last 24 hr 05/12/22 05/12/22 05/12/22 15:40 16:00 16:00 WBC 6.0 RBC 2.67 L Hgb 8.1 L Hct 24.4 L MCV 91.3 MCH 30.2 MCHC 33.1 RDW 20.6 H Plt Count 34 L* Neut % (Auto) 88.0 H Lymph % (Auto) 10.2 L [place] % (Auto) 1.1 L Eos % (Auto) 0.3 L Baso % (Auto) 0.4 Neut # (Auto) 5300 Lymph # (Auto) 600 L [place] # (Auto) 100 Eos # (Auto) 0 Baso # (Auto) 0 Platelet Estimate RBC Morphology See below Poikilocytosis 1+ H Anisocytosis 2+ H Sodium 125 L Potassium 5.8 H Chloride 91 L Carbon Dioxide 20 L BUN 60 H Creatinine 2.72 H Estimated GFR 20 L BUN/Creatinine Ratio 22.1 H Glucose 87 Lactate Calcium 8.3 L Phosphorus Magnesium Total Bilirubin 2.2 H AST 217 H ALT 49 H Alkaline Phosphatase 1164 H Total Protein 5.8 L Albumin 2.9 L Globulin 2.9 Albumin/Globulin Ratio 1.0 Lipase 74 Procalcitonin 8.41 H Urine Color Urine Appearance Urine pH Ur Specific [place] Urine Protein Urine Glucose (UA) Urine Ketones Urine Occult Blood Urine Nitrate Urine Bilirubin Urine Urobilinogen Ur Leukocyte Esterase Urine RBC Urine WBC Ur Squamous Epith Cells Amorphous Sediment Urine Bacteria Urine Mucus Ur Culture Indicated? SARS-CoV-2 (PCR) Negative Blood Type Antibody Screen Crossmatch 05/12/22 05/12/22 05/12/22 16:00 16:00 17:00 WBC RBC Hgb Hct MCV MCH MCHC RDW Plt Count Neut % (Auto) Lymph % (Auto) [place] % (Auto) Eos % (Auto) Baso % (Auto) Neut # (Auto) Lymph # (Auto) [place] # (Auto) Eos # (Auto) Baso # (Auto) Platelet Estimate RBC Morphology Poikilocytosis Anisocytosis Sodium Potassium Chloride Carbon Dioxide BUN Creatinine Estimated GFR BUN/Creatinine Ratio Glucose Lactate 6.4 H* Calcium Phosphorus 4.6 H Magnesium 1.6 Total Bilirubin AST ALT Alkaline Phosphatase Total Protein Albumin Globulin Albumin/Globulin Ratio Lipase Procalcitonin Urine Color Urine Appearance Urine pH Ur Specific [place] Urine Protein Urine Glucose (UA) Urine Ketones Urine Occult Blood Urine Nitrate Urine Bilirubin Urine Urobilinogen Ur Leukocyte Esterase Urine RBC Urine WBC Ur Squamous Epith Cells Amorphous Sediment Urine Bacteria Urine Mucus Ur Culture Indicated? SARS-CoV-2 (PCR) Blood Type O Positive Antibody Screen Negative Crossmatch See Detail 05/12/22 05/12/22 05/12/22 18:00 18:47 18:47 WBC RBC Hgb Hct MCV MCH MCHC RDW Plt Count Neut % (Auto) Lymph % (Auto) [place] % (Auto) Eos % (Auto) Baso % (Auto) Neut # (Auto) Lymph # (Auto) [place] # (Auto) Eos # (Auto) Baso # (Auto) Platelet Estimate RBC Morphology Poikilocytosis Anisocytosis Sodium 126 L Potassium 5.0 Chloride 93 L Carbon Dioxide 20 L BUN 58 H Creatinine 2.65 H Estimated GFR 21 L BUN/Creatinine Ratio 21.9 Glucose 77 Lactate 7.8 H* Calcium 7.9 L Phosphorus Magnesium Total Bilirubin AST ALT Alkaline Phosphatase Total Protein Albumin Globulin Albumin/Globulin Ratio Lipase Procalcitonin Urine Color Yellow Urine Appearance Cloudy Urine pH 6.5 Ur Specific [place] 1.010 Urine Protein 2+ H Urine Glucose (UA) Negative Urine Ketones Negative Urine Occult Blood 3+ H Urine Nitrate Negative Urine Bilirubin Negative Urine Urobilinogen 0.2 Ur Leukocyte Esterase 1+ H Urine RBC >100/hpf H Urine WBC 1-5/hpf Ur Squamous Epith Cells 0-1 /hpf Amorphous Sediment 1+ Urine Bacteria Few (2-10) H Urine Mucus 1+ H Ur Culture Indicated? Specimen cultured SARS-CoV-2 (PCR) Blood Type Antibody Screen Crossmatch 05/13/22 05/13/22 05:15 05:15 WBC 2.7 L D RBC 1.89 L Hgb 5.9 L* Hct 17.4 L* MCV 91.8 MCH 31.1 MCHC 33.9 RDW 20.6 H Plt Count 15 L* Neut % (Auto) 71.4 Lymph % (Auto) 24.5 L [place] % (Auto) 2.0 L Eos % (Auto) 0.3 L Baso % (Auto) 1.8 Neut # (Auto) 1900 Lymph # (Auto) 700 L [place] # (Auto) 100 Eos # (Auto) 0 Baso # (Auto) 0 Platelet Estimate Decreased on smear RBC Morphology See below Poikilocytosis Anisocytosis 2+ H Sodium 127 L Potassium 5.5 H Chloride 96 L Carbon Dioxide 21 L BUN 61 H Creatinine 2.79 H Estimated GFR 19 L BUN/Creatinine Ratio 21.9 Glucose 61 L Lactate Calcium 7.3 L Phosphorus Magnesium Total Bilirubin 1.6 H AST 173 H ALT 37 H Alkaline Phosphatase 734 H Total Protein 4.6 L Albumin 2.2 L Globulin 2.4 Albumin/Globulin Ratio 0.9 L Lipase Procalcitonin Urine Color Urine Appearance Urine pH Ur Specific [place] Urine Protein Urine Glucose (UA) Urine Ketones Urine Occult Blood Urine Nitrate Urine Bilirubin Urine Urobilinogen Ur Leukocyte Esterase Urine RBC Urine WBC Ur Squamous Epith Cells Amorphous Sediment Urine Bacteria Urine Mucus Ur Culture Indicated? SARS-CoV-2 (PCR) Blood Type Antibody Screen Crossmatch Assessment & Plan Assessment & Plan narrative: #acute pancytopenia likely 2/2 chemo #acute anemia #acute thrombocytopenia stool softeners ordered, blood xfusion running, platelets coming in from OSH, will f/u with a.m. labs. #metastatic ovarian cancer stage 4 s/p final round of palliative chemo. she stated clear desire for full code today. at bedside. #FELECIA #bilateral ureteral stents #dislodged ureteral stent #hydronephrosis urgently seeking placement or procedure field trip options to address this. urology consulted. does not appear to be making much urine via the ureter with stent that is in place got some IVF for sepsis but will reduce for now d/t hydronephrosis picture - she is getting blood products - don't want to overload now #hyperkalemia #hypochloremeia #hyponatremia #lactosis, increasing suspect infection/sepsis received IVF, still getting vanc/zosyn, continue, cultures pending #hypoglycemia received some D5 IVF not really eating monitor try not to fluid overload PCP: Carter Code: Full DVT ppx: holding d/t thrombocytopenia Time Spent With Patient Critical Care time: I spent a total of [] minutes of critical care time on this patient's care today; this time is exclusive of procedural time. Quality VTE Deep Vein Thrombosis/Pulmonary Embolism Present on Admission: No
[2022-05-13] MEDS: VANCOMYCIN 500 MG in SODIUM CHLORIDE 0.9% 100 ML 100 MG IV (10:10)
--- NOTE | 2022-05-13 11:09 | DIET.CONS ---
Dietary Consultation Note Admission Date: 05/12/2022 18:36 Assessment: 56y F admitted for weakness and falls with metastatic ovarian cancer to pelvic lymph nodes and liver referred to nutrition for assessment of nutrition status, MNA 5 (malnourished), and pescatarian. Pt with obvious cancer cachexia (13% unintentional weight loss in 3mo, reduced appetite and early satiety, asthenia c frequent falls, and anemia (H&H critical). Pt with very little muscle or subcutaneous fat, thin skin overlying bony landmarks, hollow orbitals, sunken temples, dry/cracked tongue, boxed shoulders, scooping clavicle. Pt started palliative chemotherapy 5d ago to reduce abd bulk for comfort. Pts spouse noticed appetite became severely diminished since then with pt expressing fullness after 5 bites. Pt with concerns regarding constipation and reduced BMs. Pts spouse gives her privacy regarding BMs so is unsure when last one was. She takes metamucil daily and will use mag citrate if >3d. Pt states last BM 5-6d ago. Pt receiving blood for critical H&H, pts renal function worsening r/t FELECIA (eGFR 19, Cr 2.79) with severe hydronephrosis and dislodged stent. Pt dislikes pudding, chocolate, pescatarian (no land animal meats). Ht: 167.64 cm Wt: 59 kg (-13.3% in 6mo, severe) BMI: 20.9 UBW: 74kg (pt is 20% below UBW) Last BM: 05/12/22 (05/12/22 21:24) MNA: 5 (malnourished) Justin Score: 11 Diet: 05/12/22 Breakfast General (Regular) Diet Diet Modifications: Labs: RBC 1.89 X10^6/uL (4.0-5.2) L 05/13/22 05:15 Hgb 5.9 g/dL (12.0-16.0) L* 05/13/22 05:15 Hct 17.4 % (36-46) L* 05/13/22 05:15 Creatinine 2.79 mg/dL (0.52-1.04) H 05/13/22 05:15 Lactate 7.8 mmol/L (0.7-2.1) H* 05/12/22 18:47 Nutrition Diagnosis: Severe Acute on Chronic Protein Calorie Malnutrition r/t hypermetabolism in metastatic disease and inadequate oral intake aeb 13.3% unintentional weight loss in 6mo (severe), pt with metastatic ovarian cancer c mets to pelvic lymph nodes and liver on palliative chemo for reducing bulk, pts states pts appetite continues to decline with early satiety, NFPE showing severe muscle and fat losses, cancer cachexia. Interventions: 1. Sending ONS gomes high pro smoothie c lunch to test for tolerance. 2. Educated pt and spouse on importance of high pro/high kcal MNT while hospitalized and at home. Pt currently Full Code. Reccs for eggs c heavy cream, fruit and yogurt smoothies, pb on spoon. 3. Recc GOC conversation c pt and spouse, recc consideration of hospice r/t cancer cachexia, advanced disease, current bloodwork. EER: 2,000 kcals (35kcal/kg per PCM), 55g PRO (per FELECIA, if renal fxn improves, recc increased to 1.5g/kg per PCM) Monitoring/Evaluations: following daily Electronically Signed by: Mariposa Haro 05/13/22 11:09 Clinical Dietitian [address] [address]
[2022-05-13] MEDS: DEXTROSE 5%-0.9% NS 1,000 ML 100 ML IV (11:41)
--- NOTE | 2022-05-13 13:05 | CM.DANOTE ---
DCP Assessment: Payor: Joselin PCP: MD Carter Pt is a 56 y.o. F who presented to the ED with a history of metastatic ovarian cancer and received her last round of chemo and is currently receiving palliative care five days ago. Pt was previously at [facility] for pain control where her morphine and pain meds were adjusted. Pt also states that she has fallen three times. Spouse is concerned because she is not eating or drinking much. When pt fell last night, pt got a cut on her chin. Pt admitted as inpatient for a sudden or life threatening deterioration of cardiac system and further management of her symptoms. DCP went to discuss discharge planning with pt, however, pt was sleeping and was at bedside. DCP spoke with and introduced herself and role. Pt just found out that the team is looking for a bed at a higher level of care facility. Pt spouse stated, do I have a choice in where they send her? and if so, can we go to [facility]? DCP verbalized that due to the high demand for patient beds at higher level of care facilities, it has been a challenge for everyone in [place] to find beds quickly and for specific hospitals. Pt spouse verbalized understanding. Pt spouse states that they live together in a rambler style home in [place]. Spouse states that he is pt main source of transportation and that he has gotten a cane and walker for when the pt discharges out of the hospital. DCP asked the spouse if pt was a DNR or full code and pt spouse states, this has been the third time suma been asked and yes, pt is a full code. She has stated that herself each time. Spouse states that Dr. Rousseau @ [facility] is her oncologist and that he would like to go to his hospital if possible. Pt thankful for discussion and white board was updated and instructed to call with any other questions that may arise. Spouse wanting updates on bed transfer if possible. Pt did not wake up at any time during my conversation to answer any questions. DCP to continue to follow case. P: Pt to likely transfer to a higher level of care due to pt current status. If transfer, pt to transfer via BLS. Fariha Sheth RN/SAMIP Discharge Planning/Care Management Advanced directive, confirm from FAMILY Start: 05/12/22 21:32 Freq: Q24H Status: Active Protocol: Document 05/12/22 21:32 CS (Rec: 05/12/22 22:17 CS [id number]) Advance Directive, confirm on record Time 22:17 Person contacted Copy received No CM Discharge Assessment Start: 05/13/22 12:06 Freq: Status: Active Protocol: Document 05/13/22 12:06 VINAYAK (Rec: 05/13/22 12:08 AJ [id number]) Discharge Planning Assessment Assigned Blade Grinder Fariha Sheth RN/ALICIA Advance Directives? No Advance Directives on File No History Provided By Family Member Prior Living Arrangements House Household Members spouse Type of transporation used prior to Relies on Others admit Independent with ADL's Yes Is patient alert and oriented? Yes Discharge Plan Transfer to Higher Level of Care Referrals Initiated None needed Additional Comment Pt requiring higher level of care and coordinator working on finding a bed. Whiteboard Updated in Patient Room with Yes name and ext. # of Blade Grinder Comment Instructed to call Review Status In Process Please Provide Date Initial DC 05/13/22 Assessment Was Performed Next Review Type Continued Stay Review
[2022-05-13] MEDS: HYDROMORPHONE 1 MG INJ IV ×2 (16:13→22:14)
[2022-05-14 00:06] VITALS: BP 120/78; PULSE 77; RESP 14; TEMP 36.7
[2022-05-14] MEDS: PIPERACILLIN/TAZO 3.375 GM in SODIUM CHLORIDE 0.9% 100 ML IV ×2 (00:51→09:29)
[2022-05-14] MEDS: HYDROMORPHONE 1 MG INJ IV ×6 (01:10→20:30)
[2022-05-14] MEDS: VANCOMYCIN 500 MG in SODIUM CHLORIDE 0.9% 100 ML 100 MG IV (05:35)
[2022-05-14 05:53] LABS: Lactate (Lactic Acid) 2.7 mmol/L (0.7-2.1); Mean Corpuscular HGB Conc 34.1 % (30-36); Mean Corpuscular Hemoglobin 31.2 PG (26-34); Mean Corpuscular Volume 91.4 fL (80-100); Red Blood Cell Count 3.54 X10^6/uL (4.0-5.2); Red Cell Distribution Width 17.5 % (11.6-14.8)
[2022-05-14 05:56] LABS: Alanine Aminotransferase 42 IU/L (<35); Albumin 2.5 g/dL (3.5-5.0); Alkaline Phosphatase 719 U/L (38-126); Aspartate Aminotransferase 260 IU/L (14-36); BUN Creatinine Ratio 19.4 (6-22); Bilirubin Total 3.6 mg/dL (0.2-1.3); Blood Urea Nitrogen 69 mg/dL (7-17); Calcium 7.3 mg/dL (8.4-10.2); Carbon Dioxide 19 mmol/L (22-32); Chloride 95 mmol/L (98-107); Estimated Glomerular Filt Rate 14 mL/min (>60); Globulin 2.6 g/dL (1.7-4.1); Glucose 69 mg/dL (70-100); HEMOLYSIS < 15 (0-50); Sodium 127 mmol/L (137-145); Total Protein 5.1 g/dL (6.3-8.2)
[2022-05-14 06:07] LABS: Potassium 5.7 mmol/L (3.4-5.1)
[2022-05-14 06:44] LABS: Hematocrit 32.3 % (36-46)
[2022-05-14 06:45] LABS: Platelet Count 47 X10^3/uL (150-400)
[2022-05-14 06:47] LABS: Add Manual Diff / Slide Review YES
[2022-05-14 06:59] LABS: White Blood Cell Count 1.4 X10^3/uL (4.5-11.0)
[2022-05-14 07:32] LABS: Reflexed Lactate in 2 Hours Y
[2022-05-14 08:05] LABS: Neutrophils Absolute Manual 896 /uL (3000-5900); Total Cells Counted 50
[2022-05-14 08:14] LABS: Anisocytosis 2+
[2022-05-14 08:15] LABS: Poikilocytosis 1+
[2022-05-14 09:00] VITALS: BP 110/75; PULSE 84; RESP 18; O2SAT 97
[2022-05-14] MEDS: SODIUM POLYSTYRENE SULFON/SORB 15 GM/60 ML CUP 30 GM PO (09:11)
[2022-05-14 09:24] VITALS: O2SAT 97
[2022-05-14] MEDS: OXYBUTYNIN 5 MG ER TAB 10 MG PO (09:32)
--- NOTE | 2022-05-14 12:13 | CM.DPNOTE ---
Faxed referral to [facility] per Fariha. Loni Boudreaux CM Assist.
--- NOTE | 2022-05-14 13:00 | P.PN_ITS ---
Subjective Subjective Date Patient Seen: 05/14/22 Time Patient Seen: 13:00 Interval history: Patient minimally responsive today because she is sleeping. But is awake and alert enough to make decisions. Complaining of some pain. No other changes. Exam Vital Signs (past 8 hours): - 05/14/22 09:24 05/14/22 09:00 Pulse Rate 84 Respiratory Rate 18 Blood Pressure 110/75 Pulse Oximetry 97 97 Oxygen Delivery Method Room Air Oxygen Flow Rate 0 0 Oxygen Delivery Method Room Air Oxygen Flow Rate 0 Narrative Exam Narrative: Cachectic sleeping female in no acute distress Lungs are clear heart regular rate and rhythm abdomen is soft positive bowel sounds nontender Objective Labs Result Diagrams: 05/14/22 05:10 05/14/22 05:10 Labs: Laboratory Results - last 24 hr 05/12/22 05/14/22 05/14/22 17:00 05:10 05:10 WBC 1.4 L* RBC 3.54 L Hgb 11.0 L Hct 32.3 L MCV 91.4 MCH 31.2 MCHC 34.1 RDW 17.5 H Plt Count 47 L Neut % (Auto) Not Reportable Lymph % (Auto) Not Reportable [place] % (Auto) Not Reportable Eos % (Auto) Not Reportable Baso % (Auto) Not Reportable Lymph # (Auto) Not Reportable [place] # (Auto) Not Reportable Baso # (Auto) Not Reportable Total Counted 50 Seg Neutrophils % 62.0 Band Neutrophils % 2.0 L Lymphocytes % (Manual) 30.0 Atypical Lymphs % 2.0 H Monocytes % (Manual) 2.0 Eosinophils % (Manual) 2.0 Neutrophils # (Manual) 896 L RBC Morphology See below Poikilocytosis 1+ H Anisocytosis 2+ H Sodium Potassium Chloride Carbon Dioxide BUN Creatinine Estimated GFR BUN/Creatinine Ratio Glucose Lactate 2.7 H Calcium Total Bilirubin AST ALT Alkaline Phosphatase Total Protein Albumin Globulin Albumin/Globulin Ratio Blood Type O Positive Antibody Screen Negative Crossmatch See Detail 05/14/22 05:10 WBC RBC Hgb Hct MCV MCH MCHC RDW Plt Count Neut % (Auto) Lymph % (Auto) [place] % (Auto) Eos % (Auto) Baso % (Auto) Lymph # (Auto) [place] # (Auto) Baso # (Auto) Total Counted Seg Neutrophils % Band Neutrophils % Lymphocytes % (Manual) Atypical Lymphs % Monocytes % (Manual) Eosinophils % (Manual) Neutrophils # (Manual) RBC Morphology Poikilocytosis Anisocytosis Sodium 127 L Potassium 5.7 H Chloride 95 L Carbon Dioxide 19 L BUN 69 H Creatinine 3.56 H Estimated GFR 14 L BUN/Creatinine Ratio 19.4 Glucose 69 L Lactate Calcium 7.3 L Total Bilirubin 3.6 H AST 260 H ALT 42 H Alkaline Phosphatase 719 H Total Protein 5.1 L Albumin 2.5 L Globulin 2.6 Albumin/Globulin Ratio 1.0 Blood Type Antibody Screen Crossmatch [facility] Medical History Acute kidney injury Asthma Endometrioid adenocarcinoma of right ovary Hydronephrosis of right kidney Obstruction of right ureter Surgical History History of exploratory laparotomy (~07/20/20) History of surgery History of surgery S/P ELIAZAR-BSO Family History Mother Cancer Hypertension Father Hypertension Social History marital status: household members: spouse Smoking Status: Never smoker alcohol intake: never Assessment & Plan Assessment & Plan narrative: Ureter obstruction secondary to ovarian cancer. Will discuss with patient that this is going to be a longstanding issue in very difficult. And will solve the problem completely discussed with Urology who feels stenting is not appropriate needs to have transcutaneous urostomy. This could only be done at a hospital that does Interventional Radiology which we were unable to obtain bed at this time. Discussed at length with . Will work steadily to do that. And follow from there. Patient's desire is to do this. Acute rowe sided tenia secondary to chemotherapy. Seems to be better today. W ill follow. Metastatic ovarian cancer. Have discussed hospice. Patient is not quite ready for that decision and is still looking to fight. Not sure if she is not going to have much choice in this decision in the near future but will have to follow. Hyperkalemia will add Kayexalate today. Recheck a.m.. Suspected infection/sepsis with increasing lack ptosis. Will need to follow. Cultures are still pending. Continue antibiotics. Code status discussed with her today. Elected for DNR. DVT prophylaxis holding secondary to thrombocytopenia. Will follow. Disposition. Very significantly ill patient to requires acute drainage of kidney secondary to obstruction and with metastatic non curable ovarian cancer. Have discussed hospice with and she may or may not be ready for this. There is no other changes. I think she is sick and really has minimal chance of returned to normal but we will push and see how we do. Time Spent With Patient Critical Care time: I spent a total of [] minutes of critical care time on this patient's care today; this time is exclusive of procedural time. Quality VTE Deep Vein Thrombosis/Pulmonary Embolism Present on Admission: No
[2022-05-14] MEDS: SODIUM CHLORIDE 0.9% 1,000 ML 100 ML IV (18:46)
[2022-05-14 19:00] VITALS: O2SAT 98
[2022-05-14 20:00] VITALS: BP 117/62; PULSE 75; RESP 18; TEMP 36.7; O2SAT 98
[2022-05-15] MEDS: HYDROMORPHONE 1 MG INJ IV ×3 (01:32→08:57)
[2022-05-15 04:26] LABS: Basophils Absolute Auto 0 /uL (0-100); Basophils Percent Auto 1.3 % (0-2); Eosinophils Absolute Auto 0 /uL (0-450); Eosinophils Percent Auto 1.6 % (2-4); Hematocrit 35.4 % (36-46); Hemoglobin 11.9 g/dL (12.0-16.0); Lymphocytes Absolute Auto 400 /uL (1100-4500); Lymphocytes Percent Auto 30.7 % (25-40); Mean Corpuscular HGB Conc 33.6 % (30-36); Mean Corpuscular Volume 92.4 fL (80-100); Monocytes Absolute Auto 100 /uL (0-900); Monocytes Percent Auto 4.3 % (3-14); Neutrophils Absolute Auto 900 /uL (1500-7000); Neutrophils Percent Auto 62.1 % (50-75); Red Blood Cell Count 3.83 X10^6/uL (4.0-5.2); Red Cell Distribution Width 17.3 % (11.6-14.8)
[2022-05-15 04:32] LABS: Alanine Aminotransferase 41 IU/L (<35); Albumin 2.4 g/dL (3.5-5.0); Albumin Globulin Ratio 0.9 (1.0-2.8); Alkaline Phosphatase 706 U/L (38-126); Aspartate Aminotransferase 264 IU/L (14-36); BUN Creatinine Ratio 17.5 (6-22); Bilirubin Total 2.7 mg/dL (0.2-1.3); Blood Urea Nitrogen 75 mg/dL (7-17); Calcium 7.5 mg/dL (8.4-10.2); Carbon Dioxide 15 mmol/L (22-32); Chloride 98 mmol/L (98-107); Estimated Glomerular Filt Rate 12 mL/min (>60); Globulin 2.7 g/dL (1.7-4.1); Glucose 56 mg/dL (70-100); HEMOLYSIS < 15 (0-50); Sodium 129 mmol/L (137-145); Total Protein 5.1 g/dL (6.3-8.2)
[2022-05-15 04:34] LABS: Platelet Count 38 X10^3/uL (150-400)
[2022-05-15 04:35] LABS: Add Manual Diff / Slide Review SLIDE REVIEW; White Blood Cell Count 1.4 X10^3/uL (4.5-11.0)
[2022-05-15 04:36] LABS: Potassium 5.6 mmol/L (3.4-5.1)
[2022-05-15] MEDS: DEXTROSE 10 % IN WATER 250 ML 999 ML IV (05:10)
--- NOTE | 2022-05-15 05:29 | PC.NURSE ---
Pt labs back with low WBC at 1.4, pt currently on neutropenic precautions, Dr Haro was notified. Lab showed low BG of 56, Dr Haro notified, pt given 4 oz apple juice, next BG was 55. Pt currently on D10 NS, BG will be taken again after infusion. Will monitor pt.
[2022-05-15 07:00] VITALS: O2SAT 96
[2022-05-15 07:07] LABS: Anisocytosis 1+; Platelet Estimate Decreased on smear
[2022-05-15 08:10] VITALS: PULSE 71; RESP 14; O2SAT 96
--- NOTE | 2022-05-15 08:28 | PM.PN.1 ---
Subjective Subjective Date Patient Seen: 05/15/22 Time Patient Seen: 08:28 Interval history: Patient's family present. Seen in follow-up of renal failure hepatitis. Patient has apparently woken up briefly but otherwise is been somnolent through most of the last 24 hours. No other significant changes. 48 hours now have attempted to get transfer were for IR procedure which we had been able to do. No other changes. Exam Vital Signs (past 8 hours): Oxygen Delivery Method Room Air Oxygen Flow Rate 0 Narrative Exam Narrative: Fatigued female arousable but not responsive in no acute distress Objective Labs Result Diagrams: 05/15/22 04:05 05/15/22 04:05 Labs: Laboratory Results - last 24 hr 05/15/22 05/15/22 04:05 04:05 WBC 1.4 L* RBC 3.83 L Hgb 11.9 L Hct 35.4 L MCV 92.4 MCH 31.0 MCHC 33.6 RDW 17.3 H Plt Count 38 L Neut % (Auto) 62.1 Lymph % (Auto) 30.7 [place] % (Auto) 4.3 Eos % (Auto) 1.6 L Baso % (Auto) 1.3 Neut # (Auto) 900 L Lymph # (Auto) 400 L [place] # (Auto) 100 Eos # (Auto) 0 Baso # (Auto) 0 Platelet Estimate Decreased on smear RBC Morphology Not Reportable Anisocytosis 1+ H Sodium 129 L Potassium 5.6 H Chloride 98 Carbon Dioxide 15 L BUN 75 H Creatinine 4.28 H Estimated GFR 12 L BUN/Creatinine Ratio 17.5 Glucose 56 L Calcium 7.5 L Total Bilirubin 2.7 H AST 264 H ALT 41 H Alkaline Phosphatase 706 H Total Protein 5.1 L Albumin 2.4 L Globulin 2.7 Albumin/Globulin Ratio 0.9 L [facility] Medical History Acute kidney injury Asthma Endometrioid adenocarcinoma of right ovary Hydronephrosis of right kidney Obstruction of right ureter Surgical History History of exploratory laparotomy (~07/20/20) History of surgery History of surgery S/P ELIAZAR-BSO Family History Mother Cancer Hypertension Father Hypertension Social History marital status: household members: spouse Smoking Status: Never smoker alcohol intake: never Assessment & Plan Assessment & Plan narrative: Metastatic ovarian cancer with renal failure and hepatitis. Patient basically with no urine over the last 24-48 hours. Attempted to give fluids yesterday without much improvement. Discussed with Urology who feels stenting is not appropriate and at this point I do not think any procedure is appropriate and we have discussed this pretty extensively with both sister and . Patient has minimally been awake and well has voiced some desire to continue to fight and proceed it is my opinion that there is no come back from where we are at this time. I discussed this extensively with family. In the face of metastatic cancer with multiple organ failure it is unclear clear what we will gain by going any further. We discussed comfort care. Really were not doing much more than that at this time anyway. Will discontinue fluids. Continue pain control which seems to be adequate at this time. And anxiety control. I do not think we need scopolamine at this time. But we will continue to follow. Questions are answered. Follow from here. Greater than 30 minutes spent primarily with counseling and discussion with care team. Dictating and orders. Time Spent With Patient Critical Care time: I spent a total of [] minutes of critical care time on this patient's care today; this time is exclusive of procedural time. Quality VTE Deep Vein Thrombosis/Pulmonary Embolism Present on Admission: No
[2022-05-15] MEDS: MORPHINE 2 MG/ML INJ IV ×4 (09:26→23:26)
--- NOTE | 2022-05-15 09:31 | PC.NURSE ---
I gave the patient 1mg dilaudid. she was still in a lot of pain after 30 minutes. family requested to give another 2mg morphine.
[2022-05-15 10:14] VITALS: BP 127/77; PULSE 84; RESP 12; TEMP 36
--- NOTE | 2022-05-15 14:40 | CM.DPNOTE ---
Discharge Planning Note: Spoke with Dr Machado today, patient is now comfort care. Pain meds are adjusted for end of life care needs. Spouse and sister in room. Spouse is handling okay but is overwhelmed with sadness. Patient has had no output in 2 days and no intake; she is minimally responsive. She is a DNR. [facility] and spoke with them today to keep on boards for now as a remote possibility if does discharge but per she is expected to in next few days. P: Follow closely. Mary Bray, RN/DCP
[2022-05-15 23:00] VITALS: BP 149/68
[2022-05-16] MEDS: MORPHINE 2 MG/ML INJ IV ×8 (02:20→19:05)
[2022-05-16 06:00] VITALS: PULSE 88; RESP 8; TEMP 36.1; O2SAT 96
--- NOTE | 2022-05-16 11:07 | PM.PN.1 ---
Subjective Subjective Date Patient Seen: 05/16/22 Time Patient Seen: 11:07 Interval history: Patient seen in follow-up of metastatic ovarian cancer with renal obstruction and kidney failure with no urine output. Really has not been a significant change. Family is concerned that intermittently she is getting agitated and may be in pain. Wondering about options. Otherwise minimal oral intake. Minimal urine output. Exam Vital Signs (past 8 hours): - 05/16/22 06:00 05/16/22 07:30 Temperature 96.9 F L Pulse Rate 88 Respiratory Rate 8 L Pulse Oximetry 96 Oxygen Delivery Method Room Air Oxygen Flow Rate 0 Oxygen Delivery Method Room Air Oxygen Flow Rate 0 Narrative Exam Narrative: Alert minimally arousable female in no acute distress Objective Labs Result Diagrams: 05/15/22 04:05 05/15/22 04:05 [facility] Medical History Acute kidney injury Asthma Endometrioid adenocarcinoma of right ovary Hydronephrosis of right kidney Obstruction of right ureter Surgical History History of exploratory laparotomy (~07/20/20) History of surgery History of surgery S/P ELIAZAR-BSO Family History Mother Cancer Hypertension Father Hypertension Social History marital status: household members: spouse Smoking Status: Never smoker alcohol intake: never Assessment & Plan Assessment & Plan narrative: In stage ovarian cancer. Terminal issue. On comfort care. Discussed with family. Will change to IV morphine. Run continuous drip. Otherwise no change in treatment. Expect will not survive the next 24 hours but will see how things go. Time Spent With Patient Critical Care time: I spent a total of [] minutes of critical care time on this patient's care today; this time is exclusive of procedural time. Quality VTE Deep Vein Thrombosis/Pulmonary Embolism Present on Admission: No
[2022-05-16] MEDS: MORPHINE 50 MG in DEXTROSE 5 % IN WATER 45 ML IV (12:43)
--- NOTE | 2022-05-16 13:59 | CM.DPC ---
DCP Comfort Measures Per MD, pt with very minimal urine output and appears to be imminent and due to pain management concerns from family pt changed to IV morphine continuous drip and expected to in the hospital in the next 24 hours. Sterile Supervisor checked in on pt/family and provided support. SW updated [facility] and they will keep pt on their list to confirm she expires here and Hospice not needed. Plan: SW to follow closely in the morning to determine pt to here vs d/c with Hospice if stabilizes. PHUONG Meza
[2022-05-16 14:50] VITALS: PULSE 91; O2SAT 95
[2022-05-16] MEDS: MORPHINE 4 MG/ML INJ IV (21:02)
[2022-05-17] MEDS: MORPHINE 4 MG/ML INJ IV ×2 (01:30→05:53)
[2022-05-17] MEDS: MORPHINE 2 MG/ML INJ IV ×2 (04:03→09:14)
[2022-05-17] MEDS: MORPHINE 50 MG in DEXTROSE 5 % IN WATER 45 ML IV (08:05)
--- NOTE | 2022-05-17 08:26 | P.PN_ITS ---
Subjective Subjective Date Patient Seen: 05/17/22 Time Patient Seen: 08:26 Interval history: Minimally responsive. But is moving a little bit and grunting some. Otherwise no change. Exam Vital Signs (past 8 hours): Oxygen Delivery Method Room Air Oxygen Flow Rate 0 Narrative Exam Narrative: Alert fatigued female minimally responsive in no acute distress Objective Labs Result Diagrams: 05/15/22 04:05 05/15/22 04:05 [facility] Medical History Acute kidney injury Asthma Endometrioid adenocarcinoma of right ovary Hydronephrosis of right kidney Obstruction of right ureter Surgical History History of exploratory laparotomy (~07/20/20) History of surgery History of surgery S/P ELIAZAR-BSO Family History Mother Cancer Hypertension Father Hypertension Social History marital status: household members: spouse Smoking Status: Never smoker alcohol intake: never Assessment & Plan Assessment & Plan narrative: Terminal ovarian cancer with renal failure will increase morphine drip for comfort and follow closely. Long discussion with family. Comfortable with this decision. This to waiting final event. I expect that will be today. No changes otherwise. Support given. Time Spent With Patient Critical Care time: I spent a total of [] minutes of critical care time on this patient's care today; this time is exclusive of procedural time. Quality VTE Deep Vein Thrombosis/Pulmonary Embolism Present on Admission: No
--- NOTE | 2022-05-17 08:32 | PC.NURSE ---
Addendum entered by Maria Teresa Baptiste R.N. 05/17/22 10:52: Patient at 1038. Apical heart rate absent and breathing stopped. is aware. Reji Osuna will be coming to talk to family about where she will be going. Addendum entered by Maria Teresa Baptiste R.N. 05/17/22 10:20: Patient continuously moaning after morphine bag increased to 4cc/hr, 2mg of iv morphine given for break through pain. Respirations fast, and 1mg of po ativan. Original Note: Assess- Patient is lying on her back with hob at 30 degrees. She is nonverbal but will moan at times to sound or being touched. BS wnl but breathing is labored. She has 1+ edema to her lower extremities, top socks taken off of patient. Her and sister are in the room. Morphine infusion increased to 4cc/hr. Will check on patient shortly.
[2022-05-17] MEDS: LORazepam 1 MG TABLET PO (10:06)
--- NOTE | 2022-05-17 10:58 | CM.DPC ---
Addendum entered by PHUONG Meza 05/17/22 11:01: ADD: LUIS also called [facility] and updated that pt and could be taken off their list. BF Original Note: DCP Per MD, pt's IV morphine was increased today and titrated and per Pharmacist could be given between 2-10 mg. Per RN, pt this morning a little before 1030 and spouse had not yet determine home or arrangements for pt's body and is somewhat upset. LUIS called Structural Technician Reji Elizabeth and he graciously confirmed he is available now to meet with family and provide support and assist with next steps and will arrive within 10 min as Reji has been aware of pt and family and checked in with them yesterday. LUIS updated RN and if any further needs arise then SW can assist with family needs. PHUONG Meza
--- NOTE | 2022-05-19 00:10 | PM.DS.1 ---
History of Present Illness History of Present Illness Chief complaint: Weak, Fell X 3. Stage 4 CA PT Discharge Providers Provider Date of admission: 05/12/22 18:36 Discharge Date: 05/17/22 Primary care physician: Jerman Machado MD Consults: 05/12/22 21:31 Consult to Dietitian, Adult Routine Comment: pescitarian Reason For Exam: to assess swallow/nutrition Consult to Patch Press Operator Routine Comment: 05/13/22 08:59 Consult to Interventional Radiology Stat Comment: Consulting Provider: Mitch Morfin Reason For Exam: ureteral stent replacement 05/13/22 09:11 Consult to Urology Stat Comment: Consulting Provider: Mitch Morfin Reason for consultation: ureteral stent replacement Has provider been notified: No 05/14/22 08:29 Consult to Physician Routine Comment: Consulting Provider: Sandy Pack Reason for consultation: renal obs Has provider been notified: Yes 05/15/22 11:15 Consult to Discharge Planning Routine Comment: Consult to Hospice Referral Urgent Comment: Discharge provider: Jerman Machado MD Exam Vital Signs (past 8 hours): Oxygen Delivery Method Room Air Oxygen Flow Rate 0 Objective Labs Result Diagrams: 05/15/22 04:05 05/15/22 04:05 [facility] Medical History Acute kidney injury Asthma Endometrioid adenocarcinoma of right ovary Hydronephrosis of right kidney Obstruction of right ureter Surgical History History of exploratory laparotomy (~07/20/20) History of surgery History of surgery S/P ELIAZAR-BSO Family History Mother Cancer Hypertension Father Hypertension Social History marital status: household members: spouse Smoking Status: Never smoker alcohol intake: never Discharge Plan Discharge Plan Patient Disposition: Discharge Data Primary Care Provider: Jerman Machado Quality VTE Deep Vein Thrombosis/Pulmonary Embolism Present on Admission: No
--- NOTE | 2022-05-19 00:11 | PM.DDS.1 ---
Discharge Summary History of Illness Narrative: See H&P. Hospital Course Date of Admission: 05/12/22 18:36 Primary care provider: Jerman Machado MD Consults: 05/12/22 21:31 Consult to Dietitian, Adult Routine Comment: pescitarian Reason For Exam: to assess swallow/nutrition Consult to Tank Car Cleaner Routine Comment: 05/13/22 08:59 Consult to Interventional Radiology Stat Comment: Consulting Provider: Mitch Morfin Reason For Exam: ureteral stent replacement 05/13/22 09:11 Consult to Urology Stat Comment: Consulting Provider: Mitch Morfin Reason for consultation: ureteral stent replacement Has provider been notified: No 05/14/22 08:29 Consult to Physician Routine Comment: Consulting Provider: Sandy Pack Reason for consultation: renal obs Has provider been notified: Yes 05/15/22 11:15 Consult to Discharge Planning Routine Comment: Consult to Hospice Referral Urgent Comment: Discharge provider: Dr. Jerman Machado Discharge Diagnosis: Metastatic ovarian cancer. Acute renal failure secondary to obstruction Severe protein malnutrition. Hepatitis Hyperkalemia Hospital Course: Problem 1. Metastatic ovarian cancer patient was admitted the hospital after having given discussion with her oncologist about cancer not responding to treatment. She had been given last dose of chemotherapy and presented with abdominal pain hyperkalemia and renal failure. It was noted that her stents were not functioning and she had pretty significant hydronephrosis. We discussed with patient that we did not have IR capability to drain her right kidney. We did discuss that cancer salas would this be a positive impact on her life. After discussion and 24 hours of not getting better with no urine output was elected not to transfer. And she was switched to comfort care 24 hours later. Patient did not really wake up or respond. She was and uric and was comfortable. Until she passed. Acute renal failure secondary to obstruction. Patient with previous obstruction and stent placements. I discussed with urologist during this. Who felt like stents were not going to be actively with functional. Urostomy tubes probably with the only way to drain the kidney that would be long-term functional. I discussed this with her for patient was really never awake enough to understand and we additionally tried to get transfer to location that had IR capability we were unable to do that and she was an uric for at least 48 hours and at that point our decision was to not transfer and switch to comfort care which was done and will be followed. Hyperkalemia. She was admitted treated with Kayexalate. Seems to at least do well until decision for comfort care at which point we discontinued and quit following her potassium. Patient was initially admitted with severe protein now been nutrition. We are hoping to increase her nutrition over time this was secondary to her chemotherapy and cancer. But due to the fact that we never really regained consciousness after 24 hours were unable to treat. But did impact the ability to treat Tran affectively due to her loss of weight. Hepatitis. Patient was noted to have hepatitis on admission. Was felt to be secondary to her chemotherapy and metastatic disease in her liver. Was not impacting what we were doing. Objective Labs Result Diagrams: 05/15/22 04:05 05/15/22 04:05
--- NOTE | 2022-06-03 09:32 | ONC.MSW ---
*Sent bereavement card.
== END 2022-05-17 10:38 | disposition expired | DRG 682 ==
LOC: ED 18:35 → AC 18:37
PROVIDERS: Family Medicine; Admitting Provider Internal Medicine; Emergency Provider Emergency Medicine; PCP Family Medicine; Referring Provider Emergency Medicine; Visit Provider Family Medicine
DX: N17.9 Acute kidney failure, unspecified (principal); E43 Unspecified severe protein-calorie malnutrition; D61.811 Other drug-induced pancytopenia; E87.1 Hypo-osmolality and hyponatremia; C56.1 Malignant neoplasm of right ovary; T83.89XA Other specified complication of genitourinary prosthetic devices, implants and grafts, initial encounter; C79.9 Secondary malignant neoplasm of unspecified site; E87.2 Acidosis; E87.8 Other disorders of electrolyte and fluid balance, not elsewhere classified; N13.39 Other hydronephrosis; K71.6 Toxic liver disease with hepatitis, not elsewhere classified; T45.1X5A Adverse effect of antineoplastic and immunosuppressive drugs, initial encounter; E87.5 Hyperkalemia; E16.2 Hypoglycemia, unspecified; Z20.822 Contact with and (suspected) exposure to COVID-19; Z68.24 Body mass index [BMI] 24.0-24.9, adult
CPT/HCPCS: 36430; 36591; 70450; 71045; 74176; 80048; 80053; 81001; 82962; 83605; 83690; 83735; 84100; 84145; 85007; 85025; 86850; 86900; 86901; 87040; 87086; 87635; 93005; 94640; 96361; 96365; 96367; 96375; 99284; 99285; C9803; J1170; J1940; J2270; J2543; J3370; J7613; P9035